=== PATIENT | female | born 1995 | race Caucasian/White ===

== ENCOUNTER 2018-07-07 07:02 | Emergency (ER) | payer BC, SELFPAY ==
[2018-07-07] MEDS ORDERED: ONDANSETRON 4 MG/2 ML VIAL ONE (07:32)
[2018-07-07] MEDS ORDERED: NA CHLORIDE 0.9% 1,000 ML ONE (07:33)
[2018-07-07] MEDS ORDERED: FAMOTIDINE 20 MG/2 ML VIAL IV ONE (07:33)
[2018-07-07 07:42] LABS: Absolute Lymphocytes (CBC) 2.1 K/uL (0.7-4.9); Absolute Monocytes 0.5 K/uL (0.1-1.3); Absolute Neutrophil 4.3 K/uL (1.8-8.0); Basophils % 0.9 % (0-1.3); Eosinophils % 4.2 % (0-4.4); Hematocrit 41.1 % (36.0-45.0); Lymphocytes % 29.5 % (15.3-44.8); MPV 8.8 fL (7.6-11.3); Monocytes % 6.9 % (3.3-12.3); RBC Red Blood Cell Count 4.95 M/uL (3.86-4.86)
[2018-07-07 07:52] LABS: Urine Blood NEGATIVE (NEG); Urine Glucose NEGATIVE (NEG); Urine Protein NEGATIVE (NEG); Urine Specific Gravity 1.025 (1.005-1.030)
[2018-07-07 07:59] LABS: ALT/SGPT 15 U/L (12-78); AST/SGOT 6 U/L (15-37); Albumin 3.2 g/dL (3.4-5.0); Alkaline Phosphatase 77 U/L (45-117); BUN Blood Urea Nitrogen 14 mg/dL (7-18); Bicarbonate 26 mmol/L (21-32); Bilirubin Direct < 0.1 mg/dL (0-0.2); Bilirubin Total 0.2 mg/dL (0.2-1.0); Glucose Level 100 mg/dL (74-106); Lipase 93 U/L (73-393); Potassium 3.8 mmol/L (3.5-5.1); Protein, Total 7.4 g/dL (6.4-8.2); Sodium Level 139 mmol/L (136-145)
--- NOTE | 2018-07-07 08:07 | ER ---
Nurse's Notes [facility] Name: Samantha Blum Age: 23 yrs Sex: Female : 1995 Arrival Date: 07/07/2018 Time: 07:05 Bed 20 Private MD: Diagnosis: Nausea and vomiting;Diarrhea, unspecified Presentation: 07/07 07:06 Presenting complaint: Patient states: n/v/d/lightheaded x 2 days. Daughter has the same sv symptoms. Transition of care: patient was not received from another setting of care. Onset of symptoms was July 05, 2018. Risk Assessment: Do you want to hurt yourself or someone else? Patient reports no desire to harm self or others. Initial Sepsis Screen: Does the patient meet any 2 criteria? No. Patient's initial sepsis screen is negative. Does the patient have a suspected source of infection? No. Patient's initial sepsis screen is negative. Care prior to arrival: None. 07:06 Method Of Arrival: Ambulatory sv 07:06 Acuity: KHRIS 3 sv Triage Assessment: 07:42 General: Appears in no apparent distress. uncomfortable, obese, well developed, sv Behavior is calm, cooperative, appropriate for age. Pain: Denies pain. Neuro: Level of Consciousness is awake, alert, obeys commands, Oriented to person, place, time, situation, Moves all extremities. Full function Gait is steady. Respiratory: Airway is patent Respiratory effort is even, unlabored, Respiratory pattern is regular, symmetrical. GI: Abdomen is obese, Reports diarrhea, nausea, vomiting. Derm: Skin is pale. Historical: - Allergies: 07:13 Zithromax; sv - PMHx: 07:13 HYPOGLYCEMIA; sv - PSHx: 07:13 None; sv - Immunization history:: Adult Immunizations up to date. - Social history:: Smoking status: Patient uses tobacco products, smokes .25 packs per day. - Ebola Screening: : No symptoms or risks identified at this time. Screenin:06 Abuse screen: Denies threats or abuse. Denies injuries from another. Nutritional sv screening: No deficits noted. Tuberculosis screening: No symptoms or risk factors identified. Fall Risk None identified. Assessment: 08:03 Reassessment: Patient appears in no apparent distress at this time. Patient and/or sv family updated on plan of care and expected duration. Pain level reassessed. Patient is alert, oriented x 3, equal unlabored respirations, skin warm/dry/pink. Patient states feeling better. Patient states symptoms have improved. GI: Patient currently denies nausea, vomiting. 08:30 Reassessment: Patient appears in no apparent distress at this time. Patient and/or sv family updated on plan of care and expected duration. Pain level reassessed. Patient is alert, oriented x 3, equal unlabored respirations, skin warm/dry/pink. Patient states feeling better. Patient states symptoms have improved. Vital Signs: 07:13 BP 106 / 41; Pulse 87; Resp 16; Temp 97.7; Pulse Ox 98% ; Weight 107.5 kg; Height 4 ft. sv 11 in. (149.86 cm); Pain 0/10; 07:13 Body Mass Index 47.87 (107.50 kg, 149.86 cm) sv ED Course: 07:05 Patient arrived in ED. as 07:06 William Zavala PA is PHCP. cp 07:06 Lang Springer MD is Attending Physician. cp 07:06 Patient has correct armband on for positive identification. Bed in low position. Call sv light in reach. Pulse ox on. NIBP on. Door closed. Head of bed elevated. 07:11 Trixie Mcneil, RN is Primary Nurse. sv 07:12 Triage completed. sv 07:14 Arm band placed on. sv 07:25 Initial lab(s) drawn, by me, sent to lab. Inserted saline lock: 20 gauge in right sv antecubital area, using aseptic technique. Blood collected. Flushed right antecubital with 5 ml normal saline. 08:30 No provider procedures requiring assistance completed. IV discontinued, intact, sv bleeding controlled, No redness/swelling at site. Pressure dressing applied. Administered Medications: 07:30 Drug: NS 0.9% 1000 ml Route: IV; Rate: 1 bolus; Site: right antecubital; sv 08:05 Follow up: Response: No adverse reaction; IV Status: Completed infusion; IV Intake: sv 1000ml 07:30 Drug: Zofran 4 mg Route: IVP; Site: right antecubital; sv 08:03 Follow up: Response: No adverse reaction; Marked relief of symptoms; Nausea is decreasedsv 07:32 Drug: Pepcid 20 mg Route: IVP; Site: right antecubital; sv 08:03 Follow up: Response: No adverse reaction; Marked relief of symptoms sv Intake: 08:05 IV: 1000ml; Total: 1000ml. sv Outcome: 08:05 Discharge ordered by . cp 08:30 Discharged to home ambulatory. sv 08:30 Condition: stable 08:30 Condition: improved 08:30 Discharge instructions given to patient, Instructed on discharge instructions, follow up and referral plans. medication usage, Demonstrated understanding of instructions, follow-up care, medications, Prescriptions given X 1. 08:31 Patient left the ED. sv Signatures: Trixie Mcneil, RN RN [place] Corey PA PA cp
--- NOTE | 2018-07-07 08:07 | EDPHYS ---
Physician Documentation [facility] Name: Samantha Blum Age: 23 yrs Sex: Female : 1995 Arrival Date: 07/07/2018 Time: 07:05 Bed 20 Private MD: ED Physician Lang Springer HPI: 07/07 07:30 This 23 yrs old Female presents to ER via Ambulatory with complaints of cp Vomiting. 07:30 The patient presents to the emergency department with nausea, that is moderate, cp vomiting, 4 episodes over last 24 hours, described as bilious, diarrhea, that is intermittent. Onset: The symptoms/episode began/occurred 2 day(s) ago. Possible causes: sick contacts, by family, daughter. Associated signs and symptoms: Pertinent negatives: fever, GI bleeding. Severity of symptoms: in the emergency department the symptoms are unchanged despite home interventions. Historical: - Allergies: 07:13 Zithromax; sv - PMHx: 07:13 HYPOGLYCEMIA; sv - PSHx: 07:13 None; sv - Immunization history:: Adult Immunizations up to date. - Social history:: Smoking status: Patient uses tobacco products, smokes .25 packs per day. - Ebola Screening: : No symptoms or risks identified at this time. ROS: 07:38 Eyes: Negative for injury, pain, redness, and discharge. cp 07:38 Constitutional: Negative for body aches, chills, fever. 07:38 ENT: Negative for drainage from ear(s), ear pain, sore throat, difficulty swallowing, difficulty handling secretions. 07:38 Cardiovascular: Negative for chest pain, palpitations. 07:38 Respiratory: Negative for cough, shortness of breath, wheezing. 07:38 Abdomen/GI: Positive for nausea, vomiting, and diarrhea, Negative for abdominal pain, constipation, black/tarry stool, rectal bleeding. 07:38 Back: Negative for pain at rest, pain with movement, radiated pain. 07:38 : Negative for urinary symptoms, vaginal bleeding. 07:38 Skin: Negative for cellulitis, rash. 07:38 Neuro: Negative for altered mental status, headache, weakness. 07:38 All other systems are negative. Exam: 07:39 Head/Face: Normocephalic, atraumatic. cp 07:39 Constitutional: The patient appears in no acute distress, alert, awake, non-toxic, well developed, well nourished. 07:39 Eyes: Periorbital structures: appear normal, Conjunctiva: normal, no exudate, no injection, Sclera: no appreciated abnormality, Lids and lashes: appear normal, bilaterally. 07:39 ENT: External ear(s): are unremarkable, Nose: is normal, Mouth: Lips: moist, Oral mucosa: moist, Posterior pharynx: Airway: no evidence of obstruction, patent. 07:39 Chest/axilla: Inspection: normal, Palpation: is normal, no crepitus, no tenderness. 07:39 Cardiovascular: Rate: normal, Rhythm: regular. 07:39 Respiratory: the patient does not display signs of respiratory distress, Respirations: normal, no use of accessory muscles, no retractions, no splinting, no tachypnea, labored breathing, is not present, Breath sounds: are clear throughout, no decreased breath sounds, no stridor, no wheezing. 07:39 Abdomen/GI: Inspection: abdomen appears normal, Bowel sounds: active, all quadrants, Palpation: abdomen is soft and non-tender, in all quadrants, rebound tenderness, is not appreciated, voluntary guarding, is not appreciated, involuntary guarding, is not appreciated. Vital Signs: 07:13 BP 106 / 41; Pulse 87; Resp 16; Temp 97.7; Pulse Ox 98% ; Weight 107.5 kg; Height 4 ft. sv 11 in. (149.86 cm); Pain 0/10; 07:13 Body Mass Index 47.87 (107.50 kg, 149.86 cm) sv MDM: 07:09 Patient medically screened. cp 07:41 Differential diagnosis: gastritis, pancreatitis, appendicitis, viral gastroenteritis, cp gastroenteritis, colitis. 08:04 Data reviewed: vital signs, nurses notes, lab test result(s). ED course: Patient cp reports nausea resolved. Will discharge to home for continued monitoring. 07/07 07:15 Order name: Basic Metabolic Panel; Complete Time: 07:59 cp 07/07 07:15 Order name: CBC with Diff; Complete Time: 07:49 cp 07/07 08:00 Interpretation: Normal except: RBC 4.95; MCV 82.9; MCH 26.5; MCHC 31.9. cp 07/07 07:15 Order name: Creatinine for Radiology; Complete Time: 07:59 cp 07/07 07:15 Order name: Hepatic Function; Complete Time: 07:59 cp 07/07 07:59 Interpretation: Normal except: AST 6; ALB 3.2; GLOB 4.2; A/G 0.8. cp 07/07 07:15 Order name: Lipase; Complete Time: 07:59 cp 07/07 07:32 Order name: Urine Dipstick--Ancillary (enter results); Complete Time: 07:59 eb 07/07 08:00 Interpretation: Normal except: UESTR 1+. cp 07/07 07:10 Order name: Urine Dipstick-Ancillary (obtain specimen); Complete Time: 07:14 cp 07/07 07:10 Order name: Urine Test (obtain specimen); Complete Time: 07:14 cp 07/07 07:15 Order name: IV Saline Lock; Complete Time: 07:42 cp 07/07 07:15 Order name: Labs collected and sent; Complete Time: 07:42 cp 07/07 07:32 Order name: Urine --Ancillary (enter results); Complete Time: 07:59 eb 07/07 08:00 Order name: PO challenge; Complete Time: 08:09 cp Administered Medications: 07:30 Drug: NS 0.9% 1000 ml Route: IV; Rate: 1 bolus; Site: right antecubital; sv 08:05 Follow up: Response: No adverse reaction; IV Status: Completed infusion; IV Intake: sv 1000ml 07:30 Drug: Zofran 4 mg Route: IVP; Site: right antecubital; sv 08:03 Follow up: Response: No adverse reaction; Marked relief of symptoms; Nausea is decreasedsv 07:32 Drug: Pepcid 20 mg Route: IVP; Site: right antecubital; sv 08:03 Follow up: Response: No adverse reaction; Marked relief of symptoms sv Disposition: 09:57 Co-signature as Attending Physician, Lang Springer MD. rn Disposition: 07/07/18 08:05 Discharged to Home. Impression: Nausea and vomiting, Diarrhea, unspecified. - Condition is Stable. - Discharge Instructions: Food Choices to Help Relieve Diarrhea, Adult, Dehydration, Adult, Diarrhea, Adult, Nausea and Vomiting, Adult. - Prescriptions for Zofran 4 mg Oral Tablet - take 1 tablet by ORAL route every 12 hours As needed; 20 tablet. - Work release form, Medication Reconciliation Form, Thank You Letter, Antibiotic Education, Prescription Opioid Use form. - Follow up: Private Physician; When: 1 - 2 days; Reason: Worsening of condition. - Problem is new. - Symptoms have improved. Signatures: Dispatcher [employer] Trixie Christian, AMARA RN Lang Briceno MD MD rn Page, Corey, PA PA cp Corrections: (The following items were deleted from the chart) 08:31 08:05 07/07/2018 08:05 Discharged to Home. Impression: Nausea and vomiting; Diarrhea, sv unspecified. Condition is Stable. Forms are Medication Reconciliation Form, Thank You Letter, Antibiotic Education, Prescription Opioid Use. Follow up: Private Physician; When: 1 - 2 days; Reason: Worsening of condition. Problem is new. Symptoms have improved. cp
[2018-07-07 08:39] VITALS: BP 106/41; TEMP 97.7; O2SAT 98
== END 2018-07-07 08:31 | disposition home or self-care (01) ==
LOC: ER 07:02
DX: R11.2 Nausea with vomiting, unspecified (principal); F17.210 Nicotine dependence, cigarettes, uncomplicated; R19.7 Diarrhea, unspecified
CPT/HCPCS: 36415; 80048; 80076; 81003; 81025; 83690; 85025; 96361; 96374; 96375; 99284; J2405; J7030

== ENCOUNTER 2019-06-13 05:52 | Emergency (ER) | payer SELFPAY ==
--- NOTE | 2019-06-13 06:19 | EDPHYS ---
Physician Documentation [facility] Name: Samantha Blum Age: 24 yrs Sex: Female : 1995 Arrival Date: 06/13/2019 Time: 05:56 Bed 14 Private MD: ED Physician José Butler HPI: 06/12 06:14 This 24 yrs old Female presents to ER via Unassigned with complaints of Rash. kb 06:13 The patient's rash thought to be caused by an unknown cause. The rash is located on the kb posterior aspect of right lateral abdomen, anterior aspect of right lateral abdomen, posterior aspect of left lateral abdomen, anterior aspect of left lateral abdomen, right hand and left hand. 06:14 The rash can be described as macular, papular. Onset: The symptoms/episode kb began/occurred last night. Associated signs and symptoms: Pertinent positives: itching, Pain. Severity of symptoms: At their worst the symptoms were mild moderate in the emergency department the symptoms are unchanged. Treatment given at home: Benadryl. The patient has not experienced similar symptoms in the past. The patient has not recently seen a physician. Pt reports she developed a rash last night. States it started on her hands and has spread to both sides of abd, her right leg and foot. Reports itching and pain. . 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 - Social history:: Smoking status: Patient reports the use of cigarette tobacco products. ROS: 06:15 Constitutional: Negative for fever, chills, and weight loss, Neck: Negative for injury, kb pain, and swelling, Cardiovascular: Negative for chest pain, palpitations, and edema, Respiratory: Negative for shortness of breath, cough, wheezing, and pleuritic chest pain, Abdomen/GI: Negative for abdominal pain, nausea, vomiting, diarrhea, and constipation, MS/Extremity: Negative for injury and deformity, Neuro: Negative for headache, weakness, numbness, tingling, and seizure. 06:15 Skin: Positive for rash. Exam: 06:15 Constitutional: This is a well developed, well nourished patient who is awake, alert, kb and in no acute distress. Head/Face: Normocephalic, atraumatic. Chest/axilla: Normal chest wall appearance and motion. Nontender with no deformity. No lesions are appreciated. Cardiovascular: Regular rate and rhythm with a normal S1 and S2. No gallops, murmurs, or rubs. Normal PMI, no JVD. No pulse deficits. Respiratory: Lungs have equal breath sounds bilaterally, clear to auscultation and percussion. No rales, rhonchi or wheezes noted. No increased work of breathing, no retractions or nasal flaring. Abdomen/GI: Soft, non-tender, with normal bowel sounds. No distension or tympany. No guarding or rebound. No evidence of tenderness throughout. MS/ Extremity: Pulses equal, no cyanosis. Neurovascular intact. Full, normal range of motion. Neuro: Awake and alert, GCS 15, oriented to person, place, time, and situation. Cranial nerves II-XII grossly intact. Motor strength 5/5 in all extremities. Sensory grossly intact. Cerebellar exam normal. Normal gait. 06:15 Skin: consistent with contact dermatitis, on the left hand and right hand and anterior aspect of left lateral abdomen and posterior aspect of left lateral abdomen and anterior aspect of right lateral abdomen and posterior aspect of right lateral abdomen. Vital Signs: 06:20 BP 98 / 77; Pulse 71; Resp 16; Temp 98.1(O); Pulse Ox 100% on R/A; Weight 105.23 kg lp1 (R); Height 4 ft. 11 in. (149.86 cm); 06:20 Body Mass Index 46.86 (105.23 kg, 149.86 cm) lp1 MDM: 06:09 Patient medically screened. kb 06:13 Data reviewed: vital signs, nurses notes. Data interpreted: Pulse oximetry: on room air kb is 100 %. Interpretation: normal. Counseling: I had a detailed discussion with the patient and/or guardian regarding: the historical points, exam findings, and any diagnostic results supporting the discharge/admit diagnosis, the need for outpatient follow up, a family practitioner, to return to the emergency department if symptoms worsen or persist or if there are any questions or concerns that arise at home. Administered Medications: 06:31 Drug: Pepcid 20 mg Route: PO; lp1 06:42 Follow up: Response: Medication administered at discharge. lp1 06:31 Drug: predniSONE 40 mg Route: PO; lp1 06:43 Follow up: Response: Medication administered at discharge. lp1 Disposition: 14:01 Co-signature as Attending Physician, José Butler MD I agree with the assessment and tw4 plan of care. Disposition: 06/13/19 06:17 Discharged to Home. Impression: Rash and other nonspecific skin eruption. - Condition is Stable. - Discharge Instructions: Rash, [id number]. - Prescriptions for Pepcid 20 mg Oral Tablet - take 1 tablet by ORAL route every 12 hours for 5 days; 10 tablet. Prednisone 20 mg Oral Tablet - take 1 tablet by ORAL route once daily for 5 days; 5 tablet. - Medication Reconciliation Form, Thank You Letter, Antibiotic Education, Prescription Opioid Use, Work release form form. - Follow up: Private Physician; When: 2 - 3 days; Reason: Recheck today's complaints, Continuance of care, Re-evaluation by your physician. Follow up: Emergency Department; When: As needed; Reason: Worsening of condition. Signatures: Veronica Wagner, BRANT-C BRANT-Tonie Catherine RN RN lp1 José Butler MD MD tw4 Corrections: (The following items were deleted from the chart) 06:42 06:17 06/13/2019 06:17 Discharged to Home. Impression: Rash and other nonspecific skin lp1 eruption. Condition is Stable. Forms are Medication Reconciliation Form, Thank You Letter, Antibiotic Education, Prescription Opioid Use. Follow up: Private Physician; When: 2 - 3 days; Reason: Recheck today's complaints, Continuance of care, Re-evaluation by your physician. Follow up: Emergency Department; When: As needed; Reason: Worsening of condition. kb
[2019-06-13] MEDS ORDERED: FAMOTIDINE 20 MG TAB ONE (06:34)
[2019-06-13] MEDS ORDERED: predniSONE 20 MG TAB ONE (06:34)
--- NOTE | 2019-06-13 06:43 | ER ---
Nurse's Notes [facility] Name: Samantha Blum Age: 24 yrs Sex: Female : 1995 Arrival Date: 06/13/2019 Time: 05:56 Bed 14 Private MD: Diagnosis: Rash and other nonspecific skin eruption Presentation: 06/12 06:20 Chief complaint: Patient states: Rash to hands, sides, and legs that began last night; lp1 States temp of 100.3 at home, took Tylenol at 1400 yesterday. Coronavirus screen: The patient has NOT traveled to a country currently being monitored by the [facility] within the last 14 days. The patient has NOT had contact with any known and/or suspected case of coronavirus. Ebola Screen: No symptoms or risks identified at this time. Initial Sepsis Screen: Does the patient meet any 2 criteria? No. Patient's initial sepsis screen is negative. Does the patient have a suspected source of infection? No. Patient's initial sepsis screen is negative. Risk Assessment: Do you want to hurt yourself or someone else? Patient reports no desire to harm self or others. Onset of symptoms was June 12, 2019. 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 - Social history:: Smoking status: Patient reports the use of cigarette tobacco products. Screenin:24 Abuse screen: Denies threats or abuse. Denies injuries from another. Nutritional lp1 screening: No deficits noted. Tuberculosis screening: No symptoms or risk factors identified. Fall Risk None identified. Assessment: 06:41 General: Appears in no apparent distress. Behavior is calm. Pain: Denies pain. Neuro: lp1 No deficits noted. Cardiovascular: No deficits noted. Respiratory: No deficits noted. GI: No deficits noted. : No deficits noted. EENT: No deficits noted. Derm: Skin is intact, is healthy with good turgor, Skin is dry, Skin is normal, Rash noted that is macular, itchy. Musculoskeletal: No deficits noted. Vital Signs: 06:20 BP 98 / 77; Pulse 71; Resp 16; Temp 98.1(O); Pulse Ox 100% on R/A; Weight 105.23 kg lp1 (R); Height 4 ft. 11 in. (149.86 cm); 06:20 Body Mass Index 46.86 (105.23 kg, 149.86 cm) lp1 ED Course: 05:56 Patient arrived in ED. cl3 06:09 Veronica Wagner FNP-C [facility]. kb 06:09 José Butler MD is Attending Physician. kb 06:19 Tonie Jarvis, RN is Primary Nurse. lp1 06:20 Arm band placed on. lp1 06:24 Triage completed. lp1 06:25 No provider procedures requiring assistance completed. Patient did not have IV access lp1 during this emergency room visit. 06:27 Patient has correct armband on for positive identification. lp1 Administered Medications: 06:31 Drug: Pepcid 20 mg Route: PO; lp1 06:42 Follow up: Response: Medication administered at discharge. lp1 06:31 Drug: predniSONE 40 mg Route: PO; lp1 06:43 Follow up: Response: Medication administered at discharge. lp1 Outcome: 06:17 Discharge ordered by MD. kb 06:42 Discharged to home ambulatory. lp1 06:42 Condition: good 06:42 Discharge instructions given to patient, Instructed on discharge instructions, follow up and referral plans. medication usage, Demonstrated understanding of instructions, follow-up care, medications, Prescriptions given X 2. 06:42 Patient left the ED. lp1 Signatures: Veronica Wagner FNP-C PARKING OFFICER-Tonie Catherine, RN RN lp1 Ольга Julian cl3 Corrections: (The following items were deleted from the chart) 06:24 06:20 Pulse 71bpm; Resp 100bpm; Pulse Ox 100% RA; Temp 98.1F Oral; 105.23 kg Reported; lp1 Height 4 ft. 11 in.; BMI: 46.8; lp1 06:24 06:20 BP 98 / 77; Pulse 71bpm; Resp 100bpm; Pulse Ox 100% RA; Temp 98.1F Oral; 105.23 lp1 kg Reported; Height 4 ft. 11 in.; BMI: 46.8; lp1
[2019-06-13 06:47] VITALS: BP 98/77; TEMP 98.1; O2SAT 100
== END 2019-06-13 06:42 | disposition home or self-care (01) ==
LOC: ER 05:52
DX: R21 Rash and other nonspecific skin eruption (principal); Z88.3 Allergy status to other anti-infective agents; F17.210 Nicotine dependence, cigarettes, uncomplicated
CPT/HCPCS: 99283; J7512

== ENCOUNTER 2019-08-19 08:01 | Emergency (ER) | payer SELFPAY ==
[2019-08-19] MEDS ORDERED: IBUPROFEN 400 MG TAB ONE (08:37)
[2019-08-19 08:57] LABS: Urine Blood TRACE (NEG); Urine Glucose NEGATIVE (NEG); Urine Protein NEGATIVE (NEG); Urine Specific Gravity >1.030 (1.005-1.030); Urine pH 5.5 (5.0-7.0)
--- NOTE | 2019-08-19 10:05 | ER ---
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 Coronavirus screen: Proceed with normal triage. Ebola Screen: No symptoms or risks identified at this time. Initial Sepsis Screen: Does the patient meet any 2 criteria? No. Patient's initial sepsis screen is negative. Does the patient have a suspected source of infection? No. Patient's initial sepsis screen is negative. Risk Assessment: Do you want to hurt yourself or someone else? Patient reports no desire to harm self or others. Onset of symptoms was August 19, 2019. 08:10 Method Of Arrival: Ambulatory 08:10 Acuity: KHRIS 4 hb Triage Assessment: 08:11 General: Appears in no apparent distress. uncomfortable, well groomed, well developed, sv Behavior is calm, cooperative, appropriate for age. Pain: Complains of pain in dorsal aspect of right wrist. Neuro: Level of Consciousness is awake, alert, obeys commands, Oriented to person, place, time, situation, Moves all extremities. Full function Gait is steady. Respiratory: Respiratory effort is even, unlabored, Respiratory pattern is regular, symmetrical. Derm: Skin is pink, warm \T\ dry. 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 - Social history:: Smoking status: Patient reports the use of cigarette tobacco products, smokes one-half pack cigarettes per day. Screenin:12 Abuse screen: Denies threats or abuse. Denies injuries from another. Nutritional sv screening: No deficits noted. Tuberculosis screening: No symptoms or risk factors identified. Fall Risk None identified. Assessment: 08:32 Reassessment: Patient appears in no apparent distress at this time. No changes from sv previously documented assessment. Patient and/or family updated on plan of care and expected duration. Pain level reassessed. Patient is alert, oriented x 3, equal unlabored respirations, skin warm/dry/pink. 09:16 Reassessment: Patient appears in no apparent distress at this time. Patient and/or hb family updated on plan of care and expected duration. Pain level reassessed. Patient is alert/active/playful, equal unlabored respirations, skin warm/dry/pink. 10:15 Reassessment: Patient appears in no apparent distress at this time. Patient and/or hb family updated on plan of care and expected duration. Pain level reassessed. Patient is alert, oriented x 3, equal unlabored respirations, skin warm/dry/pink. Vital Signs: 08:10 BP 130 / 80; Pulse 85; Resp 16; Temp 98.2(TE); Pulse Ox 100% ; Weight 107.5 kg; Height hb 4 ft. 11 in. (149.86 cm); Pain 5/10; 08:10 Body Mass Index 47.87 (107.50 kg, 149.86 cm) ED Course: 08:04 Patient arrived in ED. ag5 08:06 Kavon Fan MD is Attending Physician. 7 08:11 Trixie Mcneil RN is Primary Nurse. sv 08:11 ED physician to see patient. sv 08:12 Arm band placed on. sv 08:12 Patient has correct armband on for positive identification. Bed in low position. Call sv light in reach. Pulse ox on. NIBP on. Door closed. Head of bed elevated. 08:13 Triage completed. hb 08:33 Hand Right 3 View XRAY Sent. sv 08:33 Wrist Right 3 View XRAY Sent. sv 08:39 Wrist Right 3 View XRAY In Process Unspecified. EDMS 08:39 Hand Right 3 View XRAY In Process Unspecified. EDMS 08:45 Awaiting radiology results. sv 10:03 Morteza Walden MD is Referral Physician. 7 10:15 Orthoglass splint: Volar splint applied on left arm Radial pulse present and within jb1 normal limits before and after application of splint. Capillary refill was one second before and after application of splint. Patient tolerated well. 10:55 No provider procedures requiring assistance completed. Patient did not have IV access hb during this emergency room visit. Administered Medications: 08:32 Drug: Motrin 800 mg Route: PO; sv 09:00 Follow up: Response: No adverse reaction sv Outcome: 10:04 Discharge ordered by . erika 10:55 Discharged to home ambulatory. hb 10:55 Condition: stable 10:55 Discharge instructions given to patient, Instructed on discharge instructions, follow up and referral plans. medication usage, Demonstrated understanding of instructions, follow-up care, medications, Prescriptions given X 1. 10:55 Patient left the ED. 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
--- NOTE | 2019-08-19 10:06 | EDPHYS ---
Physician Documentation [facility] Name: Samantha Blum Age: 24 yrs Sex: Female : 1995 Arrival Date: 08/19/2019 Time: 08:04 Bed 15 Private MD: ED Physician Kavon Fan HPI: 08/18 08:15 This 24 yrs old Female presents to ER via Ambulatory with complaints of Wrist mh7 Pain. 08:15 This 24 yrs old Female presents to ER via Ambulatory with complaints of Wrist mh7 Pain. 08:15 The patient or guardian reports injury. The complaints affect the right wrist mh7 diffusely. Context: The problem was sustained at work, resulted from a direct blow, by a heavy object, lifting or pulling, a patient. Onset: The symptoms/episode began/occurred just prior to arrival, today. Modifying factors: The symptoms are alleviated by nothing, the symptoms are aggravated by movement. Associated signs and symptoms: Pertinent negatives: cyanosis distally, decreased sensation distally, fever, nausea, numbness distally, tingling distally, vomiting. Compartment Syndrome negative for numbness, tingling. Patient states that she was lifting a patient at work in a [employer] when right wrist got twisted and possibly hit something. She denies any numbness/tingling, or weakness. She took Tylenol prior to coming to the ED.. 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 - Social history:: Smoking status: Patient reports the use of cigarette tobacco products, smokes one-half pack cigarettes per day. ROS: 08:15 Constitutional: Negative for fever, chills, and weight loss, Eyes: Negative for injury, mh7 pain, redness, and discharge, ENT: Negative for injury, pain, and discharge, Neck: Negative for injury, pain, and swelling, Cardiovascular: Negative for chest pain, palpitations, and edema, Respiratory: Negative for shortness of breath, cough, wheezing, and pleuritic chest pain, Abdomen/GI: Negative for abdominal pain, nausea, vomiting, diarrhea, and constipation, Back: Negative for injury and pain, : Negative for injury, bleeding, discharge, and swelling, Skin: Negative for injury, rash, and discoloration, Neuro: Negative for headache, weakness, numbness, tingling, and seizure, Psych: Negative for depression, anxiety, suicide ideation, homicidal ideation, and hallucinations, Allergy/Immunology: Negative for hives, rash, and allergies, Endocrine: Negative for neck swelling, polydipsia, polyuria, polyphagia, and marked weight changes, Hematologic/Lymphatic: Negative for swollen nodes, abnormal bleeding, and unusual bruising. Exam: 08:15 Constitutional: This is a well developed, well nourished patient who is awake, alert, mh7 and in no acute distress. Head/Face: Normocephalic, atraumatic. Eyes: Pupils equal round and reactive to light, extra-ocular motions intact. Lids and lashes normal. Conjunctiva and sclera are non-icteric and not injected. Cornea within normal limits. Periorbital areas with no swelling, redness, or edema. Neck: Trachea midline, no thyromegaly or masses palpated, and no cervical lymphadenopathy. Supple, full range of motion without nuchal rigidity, or vertebral point tenderness. No Meningismus. Chest/axilla: Normal chest wall appearance and motion. Nontender with no deformity. No lesions are appreciated. Cardiovascular: Regular rate and rhythm with a normal S1 and S2. No gallops, murmurs, or rubs. Normal PMI, no JVD. No pulse deficits. Respiratory: Lungs have equal breath sounds bilaterally, clear to auscultation and percussion. No rales, rhonchi or wheezes noted. No increased work of breathing, no retractions or nasal flaring. Abdomen/GI: Soft, non-tender, with normal bowel sounds. No distension or tympany. No guarding or rebound. No evidence of tenderness throughout. Back: No spinal tenderness. No costovertebral tenderness. Full range of motion. Skin: Warm, dry with normal turgor. Normal color with no rashes, no lesions, and no evidence of cellulitis. 08:15 Neuro: Awake and alert, GCS 15, oriented to person, place, time, and situation. Cranial nerves II-XII grossly intact. Motor strength 5/5 in all extremities. Sensory grossly intact. Cerebellar exam normal. Normal gait. Psych: Awake, alert, with orientation to person, place and time. Behavior, mood, and affect are within normal limits. 08:15 Musculoskeletal/extremity: Extremities: noted in the right wrist: decreased ROM, pain, tenderness, noted in the dorsal aspect of right hand: pain, tenderness, ROM: limited active range of motion due to pain, in the right wrist, limited passive range of motion due to pain, in the right wrist, Circulation is intact in all extremities. Pulses: are normal with no appreciated deficits, Perfusion: the patient is normally perfused throughout, Perfusion: the extremity is normally perfused throughout, Sensation intact. Compartment Syndrome exam of affected extremity: is normal. no numbness, no tingling, no sensation deficit, no palor, no weak pulses, Joints: the right wrist displays painful range of motion, tenderness, Weight bearing: able to fully bear weight, without difficulty, Tendon exam: specific tendon testing normal through active and passive range of motion Vital Signs: 08:10 BP 130 / 80; Pulse 85; Resp 16; Temp 98.2(TE); Pulse Ox 100% ; Weight 107.5 kg; Height hb 4 ft. 11 in. (149.86 cm); Pain 5/10; 08:10 Body Mass Index 47.87 (107.50 kg, 149.86 cm) hb Procedures: 10:28 Splinting: Splint applied to right wrist using Orthoglass splint, applied by [facility] Examined by me, post splint application: neurovascular intact, 2+ distal pulses palpable, brisk capillary refill noted, Patient tolerated well. MDM: 08:13 Patient medically screened. [facility] 09:58 Differential diagnosis: dislocation, closed fracture, contusion, tendonitis, sprain, 7 strain. Data reviewed: vital signs, nurses notes, radiologic studies, plain films. Data interpreted: Pulse oximetry: on room air is 98 %. Interpretation: normal. Counseling: I had a detailed discussion with the patient and/or guardian regarding: the historical points, exam findings, and any diagnostic results supporting the discharge/admit diagnosis, lab results, radiology results. 10:02 Test interpretation: by ED physician or midlevel provider: plain radiologic studies. [facility] 10:28 ED course: Feels better, NAD, VSS, NVI, no focal neurological deficits. Discussed all [facility] test results and findings with the patient and answered all of her questions. She will follow up with orthopedics but was told to return to the ED if worsening of symptoms or other concerns.. 08/18 08:23 Order name: Urine Dipstick--Ancillary (enter results); Complete Time: 09:03 08/18 08:23 Order name: Urine --Ancillary (enter results); Complete Time: 09:03 08/18 08:15 Order name: Urine Test (obtain specimen); Complete Time: 08:23 [facility] 08/18 08:15 Order name: Wrist Right 3 View XRAY [facility] 08/18 08:15 Order name: Hand Right 3 View XRAY [facility] 08/18 10:02 Order name: Splint; Complete Time: 10:17 7 Administered Medications: 08:32 Drug: Motrin 800 mg Route: PO; sv 09:00 Follow up: Response: No adverse reaction sv Disposition: 08/19/19 10:04 Discharged to Home. Impression: Other and unspecified sprain of wrist. - Condition is Stable. - Discharge Instructions: Wrist Sprain, Form - Excuse from Work, School, or Physical Activity. - Prescriptions for Ibuprofen 800 mg Oral Tablet - take 1 tablet by ORAL route every 8 hours As needed take with food; 15 tablet. - Work release form, Medication Reconciliation Form, Thank You Letter, Antibiotic Education, Prescription Opioid Use form. - Follow up: Morteza Walden MD; When: 2 - 3 days; Reason: Worsening of condition, Re-evaluation by your physician. - Problem is new. - Symptoms have improved. Signatures: Dis[facility] Trixie Mcneil RN RN Blanquita Mauricio RN RN Kavon Fan MD MD mh7 Corrections: (The following items were deleted from the chart) 10:55 10:04 08/19/2019 10:04 Discharged to Home. Impression: Other and unspecified sprain of hb wrist. Condition is Stable. Forms are Medication Reconciliation Form, Thank You Letter, Antibiotic Education, Prescription Opioid Use. Follow up: Dr. Morteza Walden; When: 2 - 3 days; Reason: Worsening of condition, Re-evaluation by your physician. Problem is new. Symptoms have improved. [facility]
[2019-08-19 11:17] VITALS: BP 130/80; TEMP 98.2; O2SAT 100
--- NOTE | 2019-08-19 11:39 | RAD REPORT ---
EXAM DESCRIPTION: RAD - Hand Right 3 View - 08/19/2019 8:38 am CLINICAL HISTORY: injury Trauma, pain COMPARISON: None FINDINGS: Right wrist and right hand- multiple projections are submitted No acute fracture or dislocation seen.
--- NOTE | 2019-08-21 08:43 | RAD REPORT ---
EXAM DESCRIPTION: RAD - Wrist Right 3 View - 08/19/2019 8:38 am CLINICAL HISTORY: Injury Trauma, pain COMPARISON: None FINDINGS: Right wrist and right hand- multiple projections are submitted No acute fracture or dislocation seen.
== END 2019-08-19 10:55 | disposition home or self-care (01) ==
LOC: ER 08:01
DX: S63.591A Other specified sprain of right wrist, initial encounter (principal); X50.0XXA Overexertion from strenuous movement or load, initial encounter; Y93.F2 Activity, caregiving, lifting; Y92.129 Unspecified place in nursing home as the place of occurrence of the external cause; Y99.8 Other external cause status; F17.210 Nicotine dependence, cigarettes, uncomplicated; Z88.1 Allergy status to other antibiotic agents
CPT/HCPCS: 81003; 81025; 99284

== ENCOUNTER 2019-09-25 08:57 | Emergency (ER) | payer SELFPAY ==
[2019-09-25 10:30] LABS: Absolute Lymphocytes (CBC) 1.5 K/uL (0.7-4.9); Basophils % 0.7 % (0-1.3); Hematocrit 39.4 % (36.0-45.0); MPV 8.9 fL (7.6-11.3); RBC Red Blood Cell Count 4.67 M/uL (3.86-4.86)
[2019-09-25] MEDS ORDERED: ONDANSETRON 4 MG/2 ML VIAL ONE (10:34)
[2019-09-25] MEDS ORDERED: NA CHLORIDE 0.9% 1,000 ML ONE (10:34)
[2019-09-25 10:46] LABS: ALT/SGPT 20 U/L (12-78); AST/SGOT 10 U/L (15-37); Albumin 3.4 g/dL (3.4-5.0); Alkaline Phosphatase 80 U/L (45-117); BUN Blood Urea Nitrogen 11 mg/dL (7-18); Bicarbonate 25 mmol/L (21-32); Bilirubin Direct < 0.1 mg/dL (0-0.2); Bilirubin Total 0.1 mg/dL (0.2-1.0); Glucose Level 109 mg/dL (74-106); Lipase 64 U/L (73-393); Potassium 3.6 mmol/L (3.5-5.1); Protein, Total 7.2 g/dL (6.4-8.2); Sodium Level 140 mmol/L (136-145)
[2019-09-25 11:00] LABS: Urine Blood NEGATIVE (NEG); Urine Glucose NEGATIVE (NEG); Urine Protein NEGATIVE (NEG); Urine Specific Gravity 1.025 (1.005-1.030)
--- NOTE | 2019-09-25 11:03 | ER ---
Nurse's Notes [facility] [place] [place] Name: Samantha Blum Age: 24 yrs Sex: Female : 1995 Arrival Date: 09/25/2019 Time: 09:05 Bed 6 Private MD: Diagnosis: Vomiting;Abdominal tenderness;Dysmenorrhea, unspecified Presentation: 09/24 09:28 Chief complaint: Patient states: "I STARTED MY PERIOD TWO DAYS AGO AND SINCE THEN I'VE bp BEEN NAUSEOUS AND VOMITING AND PASSING OUT". Coronavirus screen: Proceed with normal triage. Ebola Screen: No symptoms or risks identified at this time. Initial Sepsis Screen: Does the patient meet any 2 criteria? No. Patient's initial sepsis screen is negative. Does the patient have a suspected source of infection? No. Patient's initial sepsis screen is negative. Risk Assessment: Do you want to hurt yourself or someone else? Patient reports no desire to harm self or others. Onset of symptoms is unknown. 09:28 Method Of Arrival: Ambulatory bp 09:28 Acuity: KHRIS 3 bp Triage Assessment: 09:30 General: Appears distressed, uncomfortable, obese, Behavior is cooperative, appropriate bp for age, agitated, anxious, crying. Pain: Complains of pain in pelvis. EENT: No deficits noted. Neuro: No deficits noted. Cardiovascular: No deficits noted. Respiratory: No deficits noted. GI: Reports nausea, vomiting. 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 Derm: No deficits noted. Musculoskeletal: No deficits noted. 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 - Social history:: Smoking status: unknown. - Family history:: not pertinent. Screenin:30 Abuse screen: Denies threats or abuse. Denies injuries from another. Nutritional bp screening: No deficits noted. Tuberculosis screening: No symptoms or risk factors identified. Fall Risk None identified. Assessment: 09:30 General: SEE TRIAGE NOTE. GI: Abdomen is non-distended, obese. bp 10:46 Reassessment: IVF INFUSING. RESULTS PENDING. bp 11:27 Reassessment: PT D/C HOME AMBULATORY, DX WITH DYSMENORRHEA. bp Vital Signs: 09:28 BP 134 / 70; Pulse 82; Resp 20; Temp 98.7; Pulse Ox 98% ; Weight 100.7 kg; Height 4 ft. bp 11 in. (149.86 cm); 10:46 BP 137 / 107; Pulse 66; Resp 16; Pulse Ox 98% ; bp 11:28 BP 95 / 51; Pulse 70; Resp 16; Pulse Ox 99% ; bp 09:28 Body Mass Index 44.84 (100.70 kg, 149.86 cm) bp ED Course: 09:05 Patient arrived in ED. mr 09:14 William Guadarrama MD is Attending Physician. ana 09:28 Duane Moore, RN is Primary Nurse. bp 09:29 Triage completed. bp 09:30 Arm band placed on. bp 09:30 Patient has correct armband on for positive identification. Bed in low position. Call bp light in reach. Side rails up X2. 10:31 Initial lab(s) drawn, by me, sent to lab. Inserted saline lock: 20 gauge in right iw antecubital area, using aseptic technique. Blood collected. 11:27 No provider procedures requiring assistance completed. IV discontinued, intact, bp bleeding controlled, No redness/swelling at site. Pressure dressing applied. Administered Medications: 10:41 Drug: NS 0.9% 1000 ml Route: IV; Rate: 1 bolus; Site: right antecubital; iw 11:20 Follow up: IV Status: Completed infusion iw 10:41 Drug: Zofran (Ondansetron) 4 mg Route: IVP; Site: right antecubital; iw 11:20 Follow up: Response: No adverse reaction; Marked relief of symptoms iw 11:19 Drug: TORadol 30 mg Route: IVP; Site: right antecubital; iw 11:20 Follow up: Response: No adverse reaction iw Outcome: 11:02 Discharge ordered by . ana 11:28 Discharged to home ambulatory. bp 11:28 Condition: stable 11:28 Discharge instructions given to patient, Instructed on discharge instructions, follow up and referral plans. medication usage, Demonstrated understanding of instructions, follow-up care, medications, Prescriptions given X 2. 11:29 Patient left the ED. bp Signatures: William Guadarrama MD MD cha Rivera, Mary mr Williams, Irene, RN RN iw Duane Moore, RN RN bp
--- NOTE | 2019-09-25 11:03 | EDPHYS ---
Physician Documentation [facility] Name: Samantha Blum Age: 24 yrs Sex: Female : 1995 Arrival Date: 09/25/2019 Time: 09:05 Bed 6 Private MD: ED Physician William Guadarrama HPI: 09/24 10:03 This 24 yrs old Female presents to ER via Ambulatory with complaints of ana Vomiting, Dizziness. 10:03 The patient presents to the emergency department with nausea, vomiting, abdominal pain, ana of the suprapubic area, right lower quadrant and left lower quadrant. Onset: The symptoms/episode began/occurred 2 day(s) ago. Possible causes: unknown. The symptoms are aggravated by nothing. The symptoms are alleviated by nothing. Associated signs and symptoms: Pertinent positives: abdominal pain, nausea, vomiting. Severity of symptoms: At their worst the symptoms were moderate in the emergency department the symptoms are unchanged. The patient has not experienced similar symptoms in the past. GRIP: 09:30 LMP 09/25/2019 bp Historical: - Allergies: 09:30 Zithromax; bp - Home Meds: :30 None [Active]; bp - PMHx: 09:30 HYPOGLYCEMIA; bp - Immunization history:: Adult Immunizations unknown. - Social history:: Smoking status: unknown. - Family history:: not pertinent. ROS: 10:03 Constitutional: Negative for fever, chills, and weight loss, Eyes: Negative for injury, ana pain, redness, and discharge, ENT: Negative for injury, pain, and discharge, Neck: Negative for injury, pain, and swelling, Cardiovascular: Negative for chest pain, palpitations, and edema, Respiratory: Negative for shortness of breath, cough, wheezing, and pleuritic chest pain, Back: Negative for injury and pain, : Negative for injury, bleeding, discharge, and swelling, MS/Extremity: Negative for injury and deformity, Skin: Negative for injury, rash, and discoloration, Neuro: Negative for headache, weakness, numbness, tingling, and seizure, Psych: Negative for depression, anxiety, suicide ideation, homicidal ideation, and hallucinations, Allergy/Immunology: Negative for hives, rash, and allergies, Endocrine: Negative for neck swelling, polydipsia, polyuria, polyphagia, and marked weight changes, Hematologic/Lymphatic: Negative for swollen nodes, abnormal bleeding, and unusual bruising. 10:03 Abdomen/GI: Positive for abdominal pain, nausea and vomiting, of the suprapubic area, right lower quadrant and left lower quadrant. Exam: 10:03 Constitutional: This is a well developed, well nourished patient who is awake, alert, ana and in no acute distress. Head/Face: Normocephalic, atraumatic. Eyes: Pupils equal round and reactive to light, extra-ocular motions intact. Lids and lashes normal. Conjunctiva and sclera are non-icteric and not injected. Cornea within normal limits. Periorbital areas with no swelling, redness, or edema. ENT: Nares patent. No nasal discharge, no septal abnormalities noted. Tympanic membranes are normal and external auditory canals are clear. Oropharynx with no redness, swelling, or masses, exudates, or evidence of obstruction, uvula midline. Mucous membranes moist. Neck: Trachea midline, no thyromegaly or masses palpated, and no cervical lymphadenopathy. Supple, full range of motion without nuchal rigidity, or vertebral point tenderness. No Meningismus. Chest/axilla: Normal chest wall appearance and motion. Nontender with no deformity. No lesions are appreciated. Cardiovascular: Regular rate and rhythm with a normal S1 and S2. No gallops, murmurs, or rubs. Normal PMI, no JVD. No pulse deficits. Respiratory: Lungs have equal breath sounds bilaterally, clear to auscultation and percussion. No rales, rhonchi or wheezes noted. No increased work of breathing, no retractions or nasal flaring. Back: No spinal tenderness. No costovertebral tenderness. Full range of motion. Skin: Warm, dry with normal turgor. Normal color with no rashes, no lesions, and no evidence of cellulitis. MS/ Extremity: Pulses equal, no cyanosis. Neurovascular intact. Full, normal range of motion. Neuro: Awake and alert, GCS 15, oriented to person, place, time, and situation. Cranial nerves II-XII grossly intact. Motor strength 5/5 in all extremities. Sensory grossly intact. Cerebellar exam normal. Normal gait. Psych: Awake, alert, with orientation to person, place and time. Behavior, mood, and affect are within normal limits. 10:03 Abdomen/GI: Inspection: abdomen appears normal, Bowel sounds: normal, Palpation: mild abdominal tenderness, in the suprapubic area, Liver: no appreciated palpable abnormalities, Hernia: not appreciated. Vital Signs: 09:28 BP 134 / 70; Pulse 82; Resp 20; Temp 98.7; Pulse Ox 98% ; Weight 100.7 kg; Height 4 ft. bp 11 in. (149.86 cm); 10:46 BP 137 / 107; Pulse 66; Resp 16; Pulse Ox 98% ; bp 11:28 BP 95 / 51; Pulse 70; Resp 16; Pulse Ox 99% ; bp 09:28 Body Mass Index 44.84 (100.70 kg, 149.86 cm) bp MDM: 09:32 Patient medically screened. ana 10:05 Differential diagnosis: Nonspecific abd pain. Data reviewed: vital signs, nurses notes, [facility] lab test result(s). 10:10 Data interpreted: gambling monitor: rate is 82 beats/min, rhythm is normal sinus rhythm, [facility] Pulse oximetry: on room air is 98 %. Counseling: I had a detailed discussion with the patient and/or guardian regarding: the historical points, exam findings, and any diagnostic results supporting the discharge/admit diagnosis, lab results. Medication response: Zofran markedly relieved the patient's nausea. 11:01 ED course: pt improved, will follow up , return to er if worsens. ana 11:08 Medication response: Toradol markedly relieved the patient's pain. [facility] 09/24 10:03 Order name: Basic Metabolic Panel; Complete Time: 11:00 09/24 10:03 Order name: CBC with Diff; Complete Time: 11:09/24 10:03 Order name: Hepatic Function; Complete Time: 11:09/24 10:03 Order name: Lipase; Complete Time: 11:00 [facility] 09/24 10:49 Order name: Urine Dipstick--Ancillary (enter results) 09/24 10:49 Order name: Urine --Ancillary (enter results) 09/24 10:03 Order name: IV Saline Lock; Complete Time: 10:31 09/24 10:03 Order name: Labs collected and sent; Complete Time: 10:09/24 10:03 Order name: Urine Dipstick-Ancillary (obtain specimen); Complete Time: 10:48 [facility] 09/24 10:03 Order name: Urine Test (obtain specimen); Complete Time: 10:48 ana Administered Medications: 10:41 Drug: NS 0.9% 1000 ml Route: IV; Rate: 1 bolus; Site: right antecubital; iw 11:20 Follow up: IV Status: Completed infusion iw 10:41 Drug: Zofran (Ondansetron) 4 mg Route: IVP; Site: right antecubital; iw 11:20 Follow up: Response: No adverse reaction; Marked relief of symptoms iw 11:19 Drug: TORadol 30 mg Route: IVP; Site: right antecubital; iw 11:20 Follow up: Response: No adverse reaction iw Disposition: 09/25/19 11:02 Discharged to Home. Impression: Vomiting, Abdominal tenderness, Dysmenorrhea, unspecified. - Condition is Stable. - Discharge Instructions: Abdominal Pain, Adult, Dysmenorrhea, Abdominal Pain, Adult, [id number], Pelvic Rest, Dysmenorrhea, [id number]. - Prescriptions for Zofran 4 mg Oral Tablet - take 1 tablet by ORAL route every 12 hours As needed; 20 tablet. Motrin IB 200 mg Oral Tablet - take 2 tablet by ORAL route every 6 hours As needed as needed with food; 30 tablet. - Medication Reconciliation Form, Thank You Letter, Antibiotic Education, Prescription Opioid Use, Work release form form. - Follow up: Private Physician; When: 2 - 3 days; Reason: Recheck today's complaints, Continuance of care, Re-evaluation by your physician. - Problem is new. - Symptoms have improved. Signatures: Dispatcher [employer] EDFL William Guadarrama MD MD cha Williams, Irene, AMARA MALONEY iw Duane Moore RN RN bp Corrections: (The following items were deleted from the chart) 11: 11:02 09/25/2019 11:02 Discharged to Home. Impression: Vomiting; Abdominal tenderness. [facility] Condition is Stable. Forms are Medication Reconciliation Form, Thank You Letter, Antibiotic Education, Prescription Opioid Use. Follow up: Private Physician; When: 2 - 3 days; Reason: Recheck today's complaints, Continuance of care, Re-evaluation by your physician. Problem is new. Symptoms have improved. [facility] : 11:03 09/25/2019 11:02 Discharged to Home. Impression: Vomiting; Abdominal tenderness; bp Dysmenorrhea, unspecified. Condition is Stable. Discharge Instructions: Abdominal Pain, Adult, Abdominal Pain, Adult, [id number]. Forms are Medication Reconciliation Form, Thank You Letter, Antibiotic Education, Prescription Opioid Use. Follow up: Private Physician; When: 2 - 3 days; Reason: Recheck today's complaints, Continuance of care, Re-evaluation by your physician. Problem is new. Symptoms have improved. ana
[2019-09-25] MEDS ORDERED: KETOROLAC 30 MG/ML INJ ONE (11:25)
[2019-09-25 11:43] VITALS: TEMP 98.7
[2019-09-25 11:45] VITALS: BP 95/51; O2SAT 99
== END 2019-09-25 11:29 | disposition home or self-care (01) ==
LOC: ER 08:57
DX: R10.819 Abdominal tenderness, unspecified site (principal); N94.6 Dysmenorrhea, unspecified; Z88.1 Allergy status to other antibiotic agents
CPT/HCPCS: 36415; 80048; 80076; 81003; 81025; 83690; 85025; 96361; 96374; 96375; 99284; J2405; J7030

== ENCOUNTER 2020-04-03 10:41 | Emergency (ER) | payer OTHER, SELFPAY ==
[2020-04-03 11:34] LABS: Urine Blood TRACE (NEG); Urine Glucose NEGATIVE (NEG); Urine Protein 1+ (NEG); Urine Specific Gravity 1.025 (1.005-1.030); Urine pH 7.5 (5.0-7.0)
[2020-04-03 12:11] LABS: Urine Bacteria 20-50 /HPF (<20); Urine Mucus HEAVY /HPF (NONE SEEN); Urine RBC <5 /HPF (NONE SEEN)
[2020-04-03 13:15] LABS: SARS-COV-2 RT PCR NEGATIVE (NEGATIVE)
[2020-04-03] MEDS ORDERED: NA CHLORIDE 0.9% 1,000 ML ONE (13:41)
[2020-04-03] MEDS ORDERED: ONDANSETRON 4 MG/2 ML VIAL ONE (14:47)
--- NOTE | 2020-04-03 14:56 | ER ---
Nurse's Notes [facility] Name: Samantha Blum Age: 25 yrs Sex: Female : 1995 Arrival Date: 04/03/2020 Time: 10:44 Bed 17 Private MD: Diagnosis: Mild hyperemesis gravidarum Presentation: 04/03 10:49 Chief complaint: Patient states: dizzy and cant keep anything down for the last week. dm5 May be . Dizziness is getting worse. Coronavirus screen: Client denies travel out of the [place] in the last 14 days. nausea, dizziness. Ebola Screen: Patient negative for fever greater than or equal to 101.5 degrees Fahrenheit, and additional compatible Ebola Virus Disease symptoms Patient denies exposure to infectious person. Patient denies travel to an Ebola-affected area in the 21 days before illness onset. No symptoms or risks identified at this time. Initial Sepsis Screen: Does the patient meet any 2 criteria?. Risk Assessment: Do you want to hurt yourself or someone else? Patient reports no desire to harm self or others. Onset of symptoms was March 28, 2020. 10:49 Method Of Arrival: Ambulatory dm5 10:49 Acuity: KHRIS 3 dm5 11:08 Initial Sepsis Screen: Does the patient have a suspected source of infection? No. dm5 Patient's initial sepsis screen is negative. Historical: - Allergies: 13:39 Zithromax; vg1 - Home Meds: 13:39 None [Active]; vg1 - PMHx: 13:39 HYPOGLYCEMIA; vg1 - Immunization history:: Adult Immunizations up to date. Screenin:55 Abuse screen: Denies threats or abuse. Nutritional screening: No deficits noted. vg1 Tuberculosis screening: No symptoms or risk factors identified. Fall Risk None identified. Assessment: 12:55 General: Appears in no apparent distress. well groomed, Behavior is calm, cooperative. vg1 Pain: Complains of pain in abdomen Pain currently is 5 out of 10 on a pain scale. Quality of pain is described as crampy. Neuro: Level of Consciousness is awake, alert, obeys commands, Oriented to person, place, time, situation. Cardiovascular: Patient's skin is warm and dry. Respiratory: Airway is patent Respiratory effort is even, unlabored, Respiratory pattern is regular, symmetrical. GI: Abdomen is flat, non-distended, Bowel sounds present X 4 quads. Abd is soft and non tender. GI: Reports nausea, vomiting, for about 2 weeks. : No signs and/or symptoms were reported regarding the genitourinary system. EENT: No signs and/or symptoms were reported regarding the EENT system. Derm: Skin is intact, is healthy with good turgor. Musculoskeletal: Circulation, motion, and sensation intact. 14:32 Reassessment: Received VO from Dr Evans to give patient 4mg of Zofran IVP x1. vg1 15:20 Reassessment: Patient appears in no apparent distress at this time. Patient is alert, vg1 oriented x 3, equal unlabored respirations, skin warm/dry/pink. Patient denies pain at this time. Patient states feeling better. Vital Signs: 11:08 BP 130 / 77; Pulse 101; Resp 20; Temp 98.1; Pulse Ox 99% on R/A; Weight 107.5 kg; dm5 Height 4 ft. 11 in. (149.86 cm); Pain 0/10; 12:57 BP 109 / 59; Pulse 73; Resp 18; Pulse Ox 99% on R/A; vg1 14:30 BP 102 / 51; Pulse 75; Resp 18; Pulse Ox 98% on R/A; vg1 15:30 BP 119 / 55; Pulse 70; Resp 16; Pulse Ox 100% on R/A; vg1 11:08 Body Mass Index 47.87 (107.50 kg, 149.86 cm) dm5 ED Course: 10:44 Patient arrived in ED. ds1 10:50 Triage completed. dm5 12:24 COVID swab sent to lab. Flu and/or RSV swab sent to lab. em1 12:49 Adalgisa Elmore, RN is Primary Nurse. vg1 12:55 Patient has correct armband on for positive identification. Bed in low position. Call vg1 light in reach. 12:55 Arm band placed on. vg1 13:11 Noah Evans MD is Attending Physician. kdr 13:35 Inserted saline lock: 20 gauge in right antecubital area, using aseptic technique. vg1 15:50 No provider procedures requiring assistance completed. IV discontinued, intact, vg1 bleeding controlled, No redness/swelling at site. Pressure dressing applied. Administered Medications: 13:38 Drug: NS 0.9% 1000 ml Route: IV; Rate: 1 bolus; Site: right antecubital; vg1 15:20 Follow up: IV Status: Completed infusion; IV Intake: 1000ml vg1 14:37 Drug: Zofran (Ondansetron) 4 mg Route: IVP; Site: right antecubital; vg1 15:20 Follow up: Response: Nausea is decreased vg1 Intake: 15:20 IV: 1000ml; Total: 1000ml. vg1 Outcome: 14:55 Discharge ordered by . kdr 15:40 Discharge ordered by MD. kdr 15:51 Discharged to home ambulatory. vg1 15:51 Condition: stable 15:51 Discharge instructions given to patient, Instructed on discharge instructions, follow up and referral plans. medication usage, Demonstrated understanding of instructions, follow-up care, medications, Prescriptions given X 2. 15:53 Patient left the ED. vg1 Signatures: Jeri Hull RN RN dm5 Noah Evans MD MD kdr Sanford, Demi ds1 Benoit Magaña emAdalgisa Paredes RN RN vg1
--- NOTE | 2020-04-03 14:56 | EDPHYS ---
Physician Documentation [facility] Name: Samantha Blum Age: 25 yrs Sex: Female : 1995 Arrival Date: 04/03/2020 Time: 10:44 Bed 17 Private MD: ED Physician Noah Evans HPI: 04/04 07:00 This 25 yrs old Female presents to ER via Ambulatory with complaints of kdr Nausea/Vomiting. 07:00 The patient presents to the emergency department with nausea, that is mild, that is kdr moderate, vomiting, that is intermittent, abdominal pain, of the abdomen diffusely. Onset: The symptoms/episode began/occurred gradually, 1 week(s) ago. Possible causes: bad food exposure, . The symptoms are aggravated by movement, food , The symptoms are alleviated by nothing. Associated signs and symptoms: Pertinent positives: abdominal pain, nausea, vomiting. Severity of symptoms: At their worst the symptoms were moderate in the emergency department the symptoms are unchanged. The patient has not experienced similar symptoms in the past. The patient has not recently seen a physician. Historical: - Allergies: 04/03 13:39 Zithromax; vg1 - Home Meds: 13:39 None [Active]; vg1 - PMHx: 13:39 HYPOGLYCEMIA; vg1 - Immunization history:: Adult Immunizations up to date. ROS: 04/04 07:00 Constitutional: Negative for fever, chills, and weight loss, Eyes: Negative for injury, kdr pain, redness, and discharge, ENT: Negative for injury, pain, and discharge, Neck: Negative for injury, pain, and swelling, Cardiovascular: Negative for chest pain, palpitations, and edema, Respiratory: Negative for shortness of breath, cough, wheezing, and pleuritic chest pain, Back: Negative for injury and pain, : Negative for injury, bleeding, discharge, and swelling, MS/Extremity: Negative for injury and deformity, Skin: Negative for injury, rash, and discoloration, Neuro: Negative for headache, weakness, numbness, tingling, and seizure activity. Psych: Negative for depression, anxiety, suicide ideation, homicidal ideation, and hallucinations, Allergy/Immunology: Negative for hives, rash, and allergies, Endocrine: Negative for neck swelling, polydipsia, polyuria, polyphagia, and marked weight changes, Hematologic/Lymphatic: Negative for swollen nodes, abnormal bleeding, and unusual bruising. Abdomen/GI: Positive for abdominal pain, nausea and vomiting, abdominal cramps, Negative for black/tarry stool, rectal pain, rectal bleeding, bowel incontinence. Exam: 07:00 Constitutional: This is a well developed, well nourished patient who is awake, alert, kdr and in no acute distress. Head/Face: Normocephalic, atraumatic. Eyes: Pupils equal round and reactive to light, extra-ocular motions intact. Lids and lashes normal. Conjunctiva and sclera are non-icteric and not injected. Cornea within normal limits. Periorbital areas with no swelling, redness, or edema. Neck: Trachea midline, no thyromegaly or masses palpated, and no cervical lymphadenopathy. Supple, full range of motion without nuchal rigidity, or vertebral point tenderness. No Meningismus. Chest/axilla: Normal chest wall appearance and motion. Nontender with no deformity. No lesions are appreciated. Cardiovascular: Regular rate and rhythm with a normal S1 and S2. No gallops, murmurs, or rubs. Normal PMI, no JVD. No pulse deficits. Respiratory: Lungs have equal breath sounds bilaterally, clear to auscultation and percussion. No rales, rhonchi or wheezes noted. No increased work of breathing, no retractions or nasal flaring. Back: No spinal tenderness. No costovertebral tenderness. Full range of motion. Skin: Warm, dry with normal turgor. Normal color with no rashes, no lesions, and no evidence of cellulitis. MS/ Extremity: Pulses equal, no cyanosis. Neurovascular intact. Full, normal range of motion. Neuro: Awake and alert, GCS 15, oriented to person, place, time, and situation. Cranial nerves II-XII grossly intact. Motor strength 5/5 in all extremities. Sensory grossly intact. Cerebellar exam normal. Normal gait. Psych: Awake, alert, with orientation to person, place and time. Behavior, mood, and affect are within normal limits. 07:00 Abdomen/GI: Inspection: abdomen appears normal, Bowel sounds: diminished, in all quadrants, Palpation: soft, mild abdominal tenderness, in all quadrants. Vital Signs: 04/03 11:08 BP 130 / 77; Pulse 101; Resp 20; Temp 98.1; Pulse Ox 99% on R/A; Weight 107.5 kg; dm5 Height 4 ft. 11 in. (149.86 cm); Pain 0/10; 12:57 BP 109 / 59; Pulse 73; Resp 18; Pulse Ox 99% on R/A; vg1 14:30 BP 102 / 51; Pulse 75; Resp 18; Pulse Ox 98% on R/A; vg1 15:30 BP 119 / 55; Pulse 70; Resp 16; Pulse Ox 100% on R/A; vg1 11:08 Body Mass Index 47.87 (107.50 kg, 149.86 cm) dm5 MDM: 14:55 Patient medically screened. kdr 04/04 07:00 Data reviewed: vital signs, nurses notes, lab test result(s), radiologic studies. kdr Counseling: I had a detailed discussion with the patient and/or guardian regarding: the historical points, exam findings, and any diagnostic results supporting the discharge/admit diagnosis, lab results, the need for outpatient follow up. 04/03 11:17 Order name: Urine Dipstick--Ancillary (enter results); Complete Time: 13:21 dm5 04/03 11:17 Order name: Urine --Ancillary (enter results); Complete Time: 13:21 dm5 04/03 11:17 Order name: Urine Microscopic Only; Complete Time: 13:21 dm5 04/03 13:15 Order name: COVID-19/FLU A+B; Complete Time: 13:21 EDMS 04/03 13:28 Order name: IV Saline Lock; Complete Time: 13:38 vg1 04/03 14:38 Order name: PO challenge; Complete Time: 15:31 kdr Administered Medications: 04/03 13:38 Drug: NS 0.9% 1000 ml Route: IV; Rate: 1 bolus; Site: right antecubital; vg1 15:20 Follow up: IV Status: Completed infusion; IV Intake: 1000ml vg1 14:37 Drug: Zofran (Ondansetron) 4 mg Route: IVP; Site: right antecubital; vg1 15:20 Follow up: Response: Nausea is decreased vg1 Disposition: 04/03/20 15:40 Discharged to Home. Impression: Mild hyperemesis gravidarum. - Condition is Stable. - Discharge Instructions: Hyperemesis Gravidarum, Morning Sickness, [id number], Eating Plan for Hyperemesis Gravidarum. - Prescriptions for Zofran 4 mg Oral Tablet - take 1 tablet by ORAL route every 4-6 hours As needed; 16 tablet. Macrobid 100 mg Oral Capsule - take 1 capsule by ORAL route every 12 hours for 3 days; 6 capsule. - Medication Reconciliation Form, Thank You Letter, Work release form, Family Work Release form. - Follow up: Private Physician; When: 2 - 3 days; Reason: If symptoms return, Further diagnostic work-up, Recheck today's complaints, Continuance of care, Re-evaluation by your physician. - Problem is new. - Symptoms have improved. Signatures: Dispatcher [employer] EDMS Noah Evans MD MD kdr Adalgisa Elmore RN RN vg1 Corrections: (The following items were deleted from the chart) 12:24 10:54 Influenza Screen (A \T\ B)+BA.LAB.BRZ ordered. EDMS EDMS 12:24 10:54 CORONAVIRUS+MR.LAB.BRZ ordered. EDDC EDMS 15:05 14:55 04/03/2020 14:55 Discharged to Home. Impression: Other abnormal uterine and kdr vaginal bleeding. Condition is Stable. Forms are Medication Reconciliation Form, Thank You Letter, Antibiotic Education, Prescription Opioid Use. Follow up: Private Physician; When: 2 - 3 days; Reason: If symptoms return, Further diagnostic work-up, Recheck today's complaints, Continuance of care, Re-evaluation by your physician. Problem is new. Symptoms have improved. kdr 15:53 15:40 04/03/2020 15:40 Discharged to Home. Impression: Mild hyperemesis gravidarum. vg1 Condition is Stable. Prescriptions for Tylenol-Codeine #3 300-30 mg Oral Tablet - take 1 tablet by ORAL route every 6 hours As needed; 12 tablet, Zofran 4 mg Oral Tablet - take 1 tablet by ORAL route every 4-6 hours As needed; 12 tablet. and Forms are Medication Reconciliation Form, Thank You Letter, Antibiotic Education, Prescription Opioid Use. Follow up: Private Physician; When: 2 - 3 days; Reason: If symptoms return, Further diagnostic work-up, Recheck today's complaints, Continuance of care, Re-evaluation by your physician. Problem is new. Symptoms have improved. kdr
[2020-04-03 16:37] VITALS: TEMP 98.1
[2020-04-03 16:41] VITALS: BP 119/55; O2SAT 100
== END 2020-04-03 15:53 | disposition home or self-care (01) ==
LOC: ER 10:41
DX: O21.0 Mild hyperemesis gravidarum (principal); Z20.822 Contact with and (suspected) exposure to COVID-19; Z88.1 Allergy status to other antibiotic agents
CPT/HCPCS: 0240U; 81003; 81015; 81025; 96361; 96374; 99284; J2405; J7030

== ENCOUNTER 2020-04-08 18:53 | Emergency (ER) | payer OTHER, SELFPAY ==
[2020-04-08] MEDS ORDERED: NA CHLORIDE 0.9% 1,000 ML ONE (20:06)
[2020-04-08] MEDS ORDERED: PROMETHAZINE INJ 25 MG/ML AMP ONE ×2 (20:06→20:37)
[2020-04-08 20:27] LABS: Absolute Lymphocytes (CBC) 1.7 K/uL (0.7-4.9); Basophils % 0.5 % (0-1.3); Hematocrit 37.2 % (36.0-45.0); Lymphocytes % 25.6 % (15.3-44.8); MPV 8.7 fL (7.6-11.3); RBC Red Blood Cell Count 4.47 M/uL (3.86-4.86)
[2020-04-08 20:54] LABS: BUN Blood Urea Nitrogen 12 mg/dL (7-18); Bicarbonate 25 mmol/L (21-32); Glucose Level 89 mg/dL (74-106); HCG, Quantitative 37605 mIU/mL (1-3); Potassium 3.8 mmol/L (3.5-5.1); Sodium Level 136 mmol/L (136-145)
[2020-04-08 21:47] LABS: Urine Blood NEGATIVE (NEG); Urine Glucose NEGATIVE (NEG); Urine Protein NEGATIVE (NEG); Urine Specific Gravity 1.025 (1.005-1.030)
[2020-04-08] MEDS ORDERED: ACETAMINOPHEN 325 MG TABLET ONE (22:05)
--- NOTE | 2020-04-08 22:30 | EDPHYS ---
Physician Documentation [facility] Name: Samantha Blum Age: 25 yrs Sex: Female : 1995 Arrival Date: 04/08/2020 Time: 18:55 Bed 24 Private MD: ED Physician Luis Enrique Platt HPI: 04/08 19:44 This 25 yrs old Female presents to ER via Ambulatory with complaints of pkl Abdominal Pain, Dizziness. 19:45 The patient presents with abdominal pain in the lower abdomen. Onset: The pkl symptoms/episode began/occurred 1 week(s) ago, and became worse today. The symptoms do not radiate. Associated signs and symptoms: Pertinent positives: nausea. The patient has been recently seen at the [facility] Emergency Department, last week, for similar complaints. Patient was seen in this ER 5 days ago. Urine test was positive. Her LMP was 02/27/20. 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 - Social history:: Smoking status: Patient/guardian denies using tobacco, Stopped _ months ago 1. ROS: 19:45 Eyes: Negative for injury, pain, redness, and discharge, ENT: Negative for injury, pkl pain, and discharge, Neck: Negative for injury, pain, and swelling, Cardiovascular: Negative for chest pain, palpitations, and edema, Respiratory: Negative for shortness of breath, cough, wheezing, and pleuritic chest pain. 19:45 Abdomen/GI: Positive for abdominal pain, of the right lower quadrant and left lower quadrant. 19:45 Back: Negative for acute changes. 19:45 : Negative for urinary symptoms. 19:45 MS/extremity: Negative for acute changes. 19:45 Skin: Negative for rash. 19:45 Neuro: Negative for altered mental status. Exam: 19:45 Head/Face: Normocephalic, atraumatic. Eyes: Pupils equal round and reactive to light, pkl extra-ocular motions intact. Lids and lashes normal. Conjunctiva and sclera are non-icteric and not injected. Cornea within normal limits. Periorbital areas with no swelling, redness, or edema. ENT: Nares patent. No nasal discharge, no septal abnormalities noted. Tympanic membranes are normal and external auditory canals are clear. Oropharynx with no redness, swelling, or masses, exudates, or evidence of obstruction, uvula midline. Mucous membranes moist. Neck: Trachea midline, no thyromegaly or masses palpated, and no cervical lymphadenopathy. Supple, full range of motion without nuchal rigidity, or vertebral point tenderness. No Meningismus. Chest/axilla: Normal chest wall appearance and motion. Nontender with no deformity. No lesions are appreciated. Cardiovascular: Regular rate and rhythm with a normal S1 and S2. No gallops, murmurs, or rubs. Normal PMI, no JVD. No pulse deficits. Respiratory: Lungs have equal breath sounds bilaterally, clear to auscultation and percussion. No rales, rhonchi or wheezes noted. No increased work of breathing, no retractions or nasal flaring. 19:45 Abdomen/GI: Bowel sounds: normal, Palpation: soft, mild abdominal tenderness, in the right lower quadrant and left lower quadrant. 19:45 Back: Exam negative for acute changes. 19:45 : Exam negative for vaginal bleeding. 19:45 Musculoskeletal/extremity: Exam is negative for acute changes. 19:45 Skin: Exam negative for rash. 19:45 Neuro: Orientation: is normal, Mentation: is normal, Cranial nerves: grossly normal, Motor: is normal. Vital Signs: 19:19 BP 122 / 102; Pulse 95; Resp 22; Temp 98.5; Pulse Ox 99% on R/A; Weight 108.41 kg; dm5 Height 4 ft. 11 in. (149.86 cm); Pain 8/10; 20:30 BP 114 / 62; Pulse 75; Resp 18; Pulse Ox 98% on R/A; vg1 21:30 BP 107 / 56; Pulse 70; Resp 16; Pulse Ox 100% on R/A; vg1 19:19 Body Mass Index 48.27 (108.41 kg, 149.86 cm) dm5 MDM: 19:29 Patient medically screened. pkl 22:25 Data reviewed: vital signs, nurses notes, lab test result(s), radiologic studies, pkl ultrasound. ED course: Patient feeling better. Discussed lab and US finding with patient. Advised to follow up with Dr. Kong in 1 to 2 days. Patient understood instructions. 04/08 19:43 Order name: CBC with Diff pkl 04/08 19:43 Order name: Chem 7; Complete Time: 20:57 pkl 04/08 19:43 Order name: Quantitative Hcg; Complete Time: 20:57 pkl 04/08 19:43 Order name: Rh Typing; Complete Time: 22:22 pkl 04/08 19:43 Order name: CBC with Automated Diff; Complete Time: 20:35 EDMS 04/08 20:02 Order name: Urine Dipstick-Ancillary (obtain specimen); Complete Time: 20:03 mw2 04/08 20:02 Order name: Urine Test (obtain specimen); Complete Time: 20:02 mw2 04/08 20:02 Order name: Urine Dipstick--Ancillary (enter results); Complete Time: 22:22 mw2 04/08 20:02 Order name: Urine --Ancillary (enter results); Complete Time: 22:22 mw2 04/08 21:01 Order name: US Transvaginal Study (Probe) pkl Administered Medications: 20:30 Drug: NS 0.9% 1000 ml Route: IV; Rate: 125 ml/hr; Site: right antecubital; vg1 23:18 Follow up: IV Status: Completed infusion; IV Intake: 400ml vg1 20:30 Drug: Phenergan 12.5 mg Route: IVP; Site: right antecubital; vg1 21:53 Follow up: Response: Nausea is decreased vg1 21:53 Drug: Tylenol 650 mg Route: PO; vg1 22:36 Follow up: Response: No adverse reaction; Pain is decreased vg1 Point of Care Testing: Urine : 19:30 hCG Reading: Positive; Control Reading: Positive; jp3 Disposition: 04/08/20 22:29 Discharged to Home. Impression: 1st Trimester . Posible demise. - Condition is Stable. - Prescriptions for promethazine 25 mg Oral Tablet - take 1 tablet by ORAL route every 8 hours As needed; 15 tablet. - Medication Reconciliation Form, Thank You Letter, Antibiotic Education, Prescription Opioid Use, Work release form form. - Follow up: Mark Anthony Kong MD; When: 1 - 2 days; Reason: Re-evaluation by your physician. - Problem is new. - Symptoms have improved. Signatures: Dispatcher [employer] Jeri Duncan, RN RN dm5 Luis Enrique Platt MD MD pkl Josette Santa mw2 Adalgisa Elmore, RN RN vg1 Corrections: (The following items were deleted from the chart) 21:26 19:44 URINALYSIS+U.LAB.BRZ ordered. [facility] 23:18 22:29 04/08/2020 22:29 Discharged to Home. Impression: 1st Trimester . Posible vg1 demise. Condition is Stable. Forms are Medication Reconciliation Form, Thank You Letter, Antibiotic Education, Prescription Opioid Use. Follow up: Mark Anthony Kong; When: 1 - 2 days; Reason: Re-evaluation by your physician. Problem is new. Symptoms have improved. pkl
--- NOTE | 2020-04-08 22:30 | ER ---
Nurse's Notes [facility] Name: Samantha Blum Age: 25 yrs Sex: Female : 1995 Arrival Date: 04/08/2020 Time: 18:55 Bed 24 Private MD: Diagnosis: 1st Trimester . Posible demise Presentation: 04/08 19:19 Chief complaint: Patient states: seen here last Wednesday and told to come back if the dm5 pain and nausea didn't get better. pain rated at 8/10, pt crying and shaking due to pain. Pt unable to get into regular physician for 3 weeks and states that the pain is unbearable. Coronavirus screen: Client denies travel out of the [place] in the last 14 days. nausea, vomiting. Client presents with at least one sign or symptom that may indicate coronavirus-19. Standard/surgical mask placed on the client. Ebola Screen: Patient negative for fever greater than or equal to 101.5 degrees Fahrenheit, and additional compatible Ebola Virus Disease symptoms Patient denies exposure to infectious person. Patient denies travel to an Ebola-affected area in the 21 days before illness onset. No symptoms or risks identified at this time. Initial Sepsis Screen: Does the patient meet any 2 criteria? RR > 20 per min. No. Patient's initial sepsis screen is negative. Does the patient have a suspected source of infection? No. Patient's initial sepsis screen is negative. Risk Assessment: Do you want to hurt yourself or someone else? Patient reports no desire to harm self or others. Onset of symptoms was February 2020. 19:19 Method Of Arrival: Ambulatory dm5 19:19 Acuity: KHRIS 3 dm5 Triage Assessment: 19:23 General: Appears in no apparent distress. uncomfortable, Behavior is calm, cooperative. dm5 Pain: Complains of pain in back and abdomen Pain currently is 8 out of 10 on a pain scale. Neuro: No deficits noted. Cardiovascular: No deficits noted. Respiratory: Airway is patent Respiratory effort is even, unlabored, Respiratory pattern is regular, symmetrical. GI: Reports lower abdominal pain, nausea. : No signs and/or symptoms were reported regarding the genitourinary system. Derm: Skin is pink, warm \T\ dry. 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 - Social history:: Smoking status: Patient/guardian denies using tobacco, Stopped _ months ago 1. Screenin:35 Abuse screen: Denies threats or abuse. Nutritional screening: No deficits noted. vg1 Tuberculosis screening: No symptoms or risk factors identified. Fall Risk None identified. Assessment: 19:35 General: Appears in no apparent distress. uncomfortable, Behavior is calm, cooperative. vg1 Pain: Complains of pain in lower abd Pain currently is 8 out of 10 on a pain scale. Pain began a week ago. Aggravated by eating, repositioning. Neuro: Level of Consciousness is awake, alert, obeys commands, Oriented to person, place, time, situation. Cardiovascular: Patient's skin is warm and dry. Respiratory: Airway is patent Respiratory effort is even, unlabored, Respiratory pattern is regular, symmetrical. 19:35 GI: Bowel sounds present in right upper quadrant, left upper quadrant and right lower vg1 quadrant hypoactive in left lower quadrant Abd is soft Abdomen is tender to palpation in left lower quadrant. : No signs and/or symptoms were reported regarding the genitourinary system. EENT: No signs and/or symptoms were reported regarding the EENT system. Derm: Skin is intact, is healthy with good turgor. Musculoskeletal: Circulation, motion, and sensation intact. 19:44 GI: Reports Last BM was 2 days ago, states bowel was hard. vg1 20:30 Reassessment: Patient appears in no apparent distress at this time. Patient is alert, vg1 oriented x 3, equal unlabored respirations, skin warm/dry/pink. Patient states feeling better. 21:30 Reassessment: Patient appears in no apparent distress at this time. Patient is alert, vg1 oriented x 3, equal unlabored respirations, skin warm/dry/pink. Patient states feeling better. 21:52 Reassessment: Received VO from Dr Platt to administer 650 mg of Tylenol PO x1. vg1 22:30 Reassessment: Patient appears in no apparent distress at this time. Patient is alert, vg1 oriented x 3, equal unlabored respirations, skin warm/dry/pink. Patient states feeling better. Vital Signs: 19:19 BP 122 / 102; Pulse 95; Resp 22; Temp 98.5; Pulse Ox 99% on R/A; Weight 108.41 kg; dm5 Height 4 ft. 11 in. (149.86 cm); Pain 8/10; 20:30 BP 114 / 62; Pulse 75; Resp 18; Pulse Ox 98% on R/A; vg1 21:30 BP 107 / 56; Pulse 70; Resp 16; Pulse Ox 100% on R/A; vg1 19:19 Body Mass Index 48.27 (108.41 kg, 149.86 cm) dm5 ED Course: 18:55 Patient arrived in ED. ds1 19:22 Triage completed. dm5 19:23 Arm band placed on. dm5 19:28 Luis Enrique Platt MD is Attending Physician. pkl 19:30 Adalgisa Elmore RN is Primary Nurse. vg1 19:35 Patient has correct armband on for positive identification. Bed in low position. Call vg1 light in reach. Side rails up X 1. 20:05 Initial lab(s) drawn, by me, sent to lab. T\T\S collected, blood band applied to patient. jp3 Inserted saline lock: 20 gauge in right antecubital area, using aseptic technique. Blood collected. 21:48 US at bedside. vg1 22:13 US Transvaginal Study (Probe) In Process Unspecified. EDMS 22:28 Mark Anthony Kong MD is Referral Physician. pkl 23:17 No provider procedures requiring assistance completed. IV discontinued, intact, vg1 bleeding controlled, No redness/swelling at site. Pressure dressing applied. Administered Medications: 20:30 Drug: NS 0.9% 1000 ml Route: IV; Rate: 125 ml/hr; Site: right antecubital; vg1 23:18 Follow up: IV Status: Completed infusion; IV Intake: 400ml vg1 20:30 Drug: Phenergan 12.5 mg Route: IVP; Site: right antecubital; vg1 21:53 Follow up: Response: Nausea is decreased vg1 21:53 Drug: Tylenol 650 mg Route: PO; vg1 22:36 Follow up: Response: No adverse reaction; Pain is decreased vg1 Point of Care Testing: Urine : 19:30 hCG Reading: Positive; Control Reading: Positive; jp3 Intake: 23:18 IV: 400ml; Total: 400ml. vg1 Outcome: 22:29 Discharge ordered by . luz 23:17 Discharged to home ambulatory. vg1 23:17 Condition: stable 23:17 Discharge instructions given to patient, Instructed on discharge instructions, follow up and referral plans. medication usage, Demonstrated understanding of instructions, follow-up care, medications. 23:18 Patient left the ED. vg1 Signatures: Dispatcher [employer] Jeri Duncan, RN RN dm5 Luis Enrique Platt MD MD pkl Sanford, Demi ds1 Reji Banda jp3 Adalgisa Elmore, RN RN vg1
[2020-04-08 23:22] VITALS: TEMP 98.5
[2020-04-08 23:24] VITALS: BP 107/56; O2SAT 100
--- NOTE | 2020-04-09 08:11 | RAD REPORT ---
EXAM DESCRIPTION: US - Transvaginal Study Probe - 04/08/2020 10:13 pm CLINICAL HISTORY: pelvic pain, Preliminary findings provided at the time of the study. COMPARISON: No comparisons TECHNIQUE: Endovaginal sonography was performed. FINDINGS: A normal shaped intrauterine gestational sac is identified containing a yolk sac. No pole is identified. Average sac diameter measurements correspond to a 6 week 3 day age. A small 6 x 3 mm subchorionic hemorrhage is present not regarded as significant at this small size. No blood or fluid in the cul de sac. Right ovary is identified and shows normal blood flow within the stroma. No right adnexal mass. Left ovary is obscured by bowel. No left adnexal mass identified. No findings to suspect ectopic . IMPRESSION: Six week 3 day size gestational sac with yolk sac but no pole. No adnexal abnormality seen. Follow-up sonography can be performed as clinically warranted.
== END 2020-04-08 23:18 | disposition home or self-care (01) ==
LOC: ER 18:53
DX: O99.891 Other specified diseases and conditions complicating pregnancy (principal); R10.30 Lower abdominal pain, unspecified; Z3A.01 Less than 8 weeks gestation of pregnancy; Z87.891 Personal history of nicotine dependence
CPT/HCPCS: 36415; 76830; 80048; 81003; 81025; 84702; 85025; 86901; 96361; 96374; 99284; J2550; J7030

== ENCOUNTER 2020-04-24 10:01 | Emergency (ER) | payer OTHER ==
[2020-04-24 12:55] LABS: Urine Blood NEGATIVE (NEG); Urine Glucose NEGATIVE (NEG); Urine Protein NEGATIVE (NEG); Urine Specific Gravity 1.025 (1.005-1.030); Urine pH 7.5 (5.0-7.0)
--- NOTE | 2020-04-24 13:10 | RAD REPORT ---
EXAM DESCRIPTION: US - Transvaginal OB - 04/24/2020 12:52 pm CLINICAL HISTORY: ABD PAIN COMPARISON: No relevant comparison FINDINGS: A normal shaped intrauterine gestational sac identified with yolk sac. pole is ident ified. Stallings-rump length corresponds to an 8 week 4 day age. Heart rate is 165 BPM. A very small inci dental subchorionic bleed is present. This is not considered significant at this small size. Overall uterine size is normal. No myometrial mass. Cervical canal is closed. Both ovaries are identified and show normal blood flow within the stroma. No adnexal abnormality. No blood or fluid in the cul de sac. IMPRESSION: Single 8 week 4 day IUP with normal heart rate. Calculated BHARATI is 11/30/2020. Very small incidental subchorionic hemorrhage. No worrisome intrauterine or extrauterine finding.
[2020-04-24 13:19] LABS: Absolute Lymphocytes (CBC) 1.9 K/uL (0.7-4.9); Basophils % 0.6 % (0-1.3); Hematocrit 38.1 % (36.0-45.0); Lymphocytes % 24.7 % (15.3-44.8); MPV 8.2 fL (7.6-11.3)
[2020-04-24] MEDS ORDERED: ONDANSETRON 4 MG/2 ML VIAL ONE (13:30)
[2020-04-24] MEDS ORDERED: DIPHENHYDRAMINE 50 MG/ML VIAL ONE (13:30)
[2020-04-24] MEDS ORDERED: NA CHLORIDE 0.9% 1,000 ML ONE (13:30)
--- NOTE | 2020-04-24 13:35 | ER ---
Nurse's Notes [facility] Name: Samantha Blum Age: 25 yrs Sex: Female : 1995 Arrival Date: 04/24/2020 Time: 10:03 Bed 23 Private MD: Larry Serrano E Diagnosis: Cystitis, unspecified without hematuria Presentation: 04/24 11:00 Chief complaint: Patient states: "I am about 8 weeks and I've been nauseated aa5 and throwing up and Phenergan is not helping". Pt also reports vaginal itching and burning. Denies any vaginal bleeding. 11:00 Coronavirus screen: Client denies travel out of the [place] in the last 14 days. nausea, aa5 vomiting. Ebola Screen: Patient negative for fever greater than or equal to 101.5 degrees Fahrenheit, and additional compatible Ebola Virus Disease symptoms. Initial Sepsis Screen: Does the patient meet any 2 criteria? No. Patient's initial sepsis screen is negative. Does the patient have a suspected source of infection? No. Patient's initial sepsis screen is negative. Risk Assessment: Do you want to hurt yourself or someone else? Patient reports no desire to harm self or others. Onset of symptoms was March 2020. 11:00 Acuity: KHRIS 3 aa5 11:00 Method Of Arrival: Wheelchair aa5 Triage Assessment: 13:00 General: Appears in no apparent distress. iw 13:00 General: Behavior is calm. iw Historical: - Allergies: 11:06 Zithromax; aa5 - Home Meds: 11:06 Vitamin Oral tab 1 tab once daily [Active]; aa5 - PMHx: 11:06 HYPOGLYCEMIA; aa5 - PSHx: 11:06 None; aa5 - Immunization history:: Flu vaccine is not up to date. - Social history:: Smoking status: Patient denies any tobacco usage or history of. - Family history:: not pertinent. Screenin:55 Abuse screen: Denies threats or abuse. Denies injuries from another. Nutritional ss screening: No deficits noted. Tuberculosis screening: Never had TB. Fall Risk None identified. Assessment: 13:00 General: Appears in no apparent distress. comfortable, Behavior is calm, cooperative. iw Pain: Complains of pain in abdomen. Neuro: Level of Consciousness is awake, alert, obeys commands, Oriented to person, place, time, situation, Moves all extremities. Cardiovascular: Patient's skin is warm and dry. GI: Abdomen is non-distended, Reports nausea, vomiting. Derm: Skin is intact, is healthy with good turgor. 13:55 Reassessment: Patient appears in no apparent distress at this time. Patient and/or ss family updated on plan of care and expected duration. Pain level reassessed. Patient is alert, oriented x 3, equal unlabored respirations, skin warm/dry/pink. Vital Signs: 11:00 BP 108 / 65; Pulse 87; Resp 18 S; Temp 98.6(TE); Pulse Ox 98% on R/A; aa5 ED Course: 10:03 Patient arrived in ED. ag5 10:04 Larry Serrano MD is Private Physician. ag5 11:06 Triage completed. aa5 11:06 Arm band placed on. aa5 11:34 Zuleyma Muro MD is Attending Physician. ma2 11:55 Ginger Cunningham RN is Primary Nurse. iw 13:00 Inserted saline lock: 20 gauge in left antecubital area, using aseptic technique. Blood dh4 collected. 13:55 Patient has correct armband on for positive identification. Bed in low position. Call ss light in reach. 13:55 No provider procedures requiring assistance completed. IV discontinued, intact, ss bleeding controlled, No redness/swelling at site. Pressure dressing applied. Administered Medications: 13:20 Drug: NS 0.9% 1000 ml Route: IV; Rate: 1 bolus; Site: right antecubital; iw 13:51 Follow up: IV Status: IV converted to saline lock 13:20 Drug: Zofran (Ondansetron) 4 mg Route: IVP; Site: right antecubital; iw 13:50 Follow up: Response: No adverse reaction 13:20 Drug: Benadryl 12.5 mg Route: IVP; Site: right antecubital; iw 13:50 Follow up: Response: No adverse reaction 13:40 Drug: Rocephin 1 grams Route: IV; Rate: calculated rate; Site: right antecubital; ss 13:51 Follow up: Response: Medication administered at discharge.; IV Status: Completed ss infusion Point of Care Testing: Blood Glucose: 11:06 Blood Glucose: 85 mg/dL; rashad Ranges: Outcome: 13:34 Discharge ordered by . bony 13:55 Discharged to home ambulatory, via wheelchair. 13:55 Condition: good 13:55 Discharge instructions given to patient, Instructed on discharge instructions, follow up and referral plans. medication usage, Demonstrated understanding of instructions, follow-up care, medications, Prescriptions given X 2. 13:56 Patient left the ED. Signatures: Ginger Cunningham RN RN Liz Delong RN RN aa5 Smirch, Shelby, RN RN Zuleyma Muro MD MD ma2 Gaskin, Ajare ag5 Huhn, Donald dh
--- NOTE | 2020-04-24 13:35 | EDPHYS ---
Physician Documentation [facility] Name: Samantha Blum Age: 25 yrs Sex: Female : 1995 Arrival Date: 04/24/2020 Time: 10:03 Bed 23 Private MD: Larry Serrano E ED Physician Zuleyma Muro HPI: 04/24 13:32 This 25 yrs old Female presents to ER via Wheelchair with complaints of ma2 Nausea/Vomiting, Vaginal Pain, 7 Wks . 13:32 The patient presents to the emergency department with nausea. Onset: The ma2 symptoms/episode began/occurred gradually, 1 day(s) ago. Associated signs and symptoms: Pertinent negatives: belching, diarrhea, fever, flatulence, hematuria. The patient has experienced similar episodes in the past. patient has nausea vomiting for 3 weeks diagnosed with hyperemesis gravidarum, here with dysuria, vomiting yesterday as usual . Historical: - Allergies: 11:06 Zithromax; aa5 - Home Meds: 11:06 Vitamin Oral tab 1 tab once daily [Active]; aa5 - PMHx: 11:06 HYPOGLYCEMIA; aa5 - PSHx: 11:06 None; aa5 - Immunization history:: Flu vaccine is not up to date. - Social history:: Smoking status: Patient denies any tobacco usage or history of. - Family history:: not pertinent. ROS: 13:32 Constitutional: Negative for fever, chills, and weight loss. ma2 13:32 All other systems are negative. Exam: 13:32 Constitutional: This is a well developed, well nourished patient who is awake, alert, ma2 and in no acute distress. Chest/axilla: Normal chest wall appearance and motion. Nontender with no deformity. No lesions are appreciated. Cardiovascular: Regular rate and rhythm with a normal S1 and S2. No gallops, murmurs, or rubs. Normal PMI, no JVD. No pulse deficits. Respiratory: Lungs have equal breath sounds bilaterally, clear to auscultation and percussion. No rales, rhonchi or wheezes noted. No increased work of breathing, no retractions or nasal flaring. Abdomen/GI: Soft, non-tender, with normal bowel sounds. No distension or tympany. No guarding or rebound. No evidence of tenderness throughout. Back: No spinal tenderness. No costovertebral tenderness. Full range of motion. Skin: Warm, dry with normal turgor. Normal color with no rashes, no lesions, and no evidence of cellulitis. MS/ Extremity: Pulses equal, no cyanosis. Neurovascular intact. Full, normal range of motion. Neuro: Awake and alert, GCS 15, oriented to person, place, time, and situation. Cranial nerves II-XII grossly intact. Motor strength 5/5 in all extremities. Sensory grossly intact. Cerebellar exam normal. Normal gait. Vital Signs: 11:00 BP 108 / 65; Pulse 87; Resp 18 S; Temp 98.6(TE); Pulse Ox 98% on R/A; aa5 MDM: 11:34 Patient medically screened. [facility] 13:32 Differential diagnosis: Nonspecific abd pain, gastritis, viral gastroenteritis, ma2 gastroenteritis. Data reviewed: vital signs, nurses notes. Counseling: I had a detailed discussion with the patient and/or guardian regarding: the historical points, exam findings, and any diagnostic results supporting the discharge/admit diagnosis, the presence of at least one elevated blood pressure reading (>120/80) during this emergency department visit, the need for outpatient follow up. Response to treatment: the patient's symptoms have markedly improved after treatment. 04/24 11:16 Order name: Glucose, Ancillary Testing [facility] 04/24 11:16 Order name: Glucose, Ancillary Testing; Complete Time: 11:34 [facility] 04/24 11:41 Order name: Quantitative Hcg [facility] 04/24 11:41 Order name: Abo/rh Typing [facility] 04/24 11:41 Order name: Basic Metabolic Panel [facility] 04/24 11:41 Order name: CBC with Diff; Complete Time: 13:21 [facility] 04/24 11:42 Order name: HCG, Quantitative [facility] 04/24 12:19 Order name: Urine Dipstick--Ancillary (enter results) 04/24 12:19 Order name: Urine --Ancillary (enter results) 04/24 12:55 Order name: Urine --Ancillary; Complete Time: 13:14 [facility] 04/24 12:55 Order name: Urine Dipstick-Ancillary; Complete Time: 13:14 [facility] 04/24 13:11 Order name: US; Complete Time: 13:14 [facility] 04/24 11:41 Order name: IV Saline Lock; Complete Time: 13:20 [facility] 04/24 11:41 Order name: Labs collected and sent; Complete Time: 13:20 [facility] 04/24 11:41 Order name: NPO; Complete Time: 12:48 nd2 04/24 11:41 Order name: Urine Dipstick-Ancillary (obtain specimen); Complete Time: 12:48 ma2 Administered Medications: 13:20 Drug: NS 0.9% 1000 ml Route: IV; Rate: 1 bolus; Site: right antecubital; 13:51 Follow up: IV Status: IV converted to saline lock 13:20 Drug: Zofran (Ondansetron) 4 mg Route: IVP; Site: right antecubital; 13:50 Follow up: Response: No adverse reaction 13:20 Drug: Benadryl 12.5 mg Route: IVP; Site: right antecubital; iw 13:50 Follow up: Response: No adverse reaction 13:40 Drug: Rocephin 1 grams Route: IV; Rate: calculated rate; Site: right antecubital; 13:51 Follow up: Response: Medication administered at discharge.; IV Status: Completed ss infusion Point of Care Testing: Blood Glucose: 11:06 Blood Glucose: 85 mg/dL; aa5 Ranges: Critical Glucose Levels:Adult <50 mg/dl or >400 mg/dl <40 mg/dl or >180 mg/dl Disposition: 04/24/20 13:34 Discharged to Home. Impression: Cystitis, unspecified without hematuria. - Condition is Stable. - Discharge Instructions: Urinary Tract Infection, Adult. - Prescriptions for Benadryl 25 mg Oral Capsule - take 1 capsule by ORAL route every 6 hours As needed; 30 tablet. Keflex 250 mg Oral Capsule - take 1 capsule by ORAL route every 6 hours for 10 days; 40 capsule. - Work release form, Medication Reconciliation Form, Thank You Letter, Antibiotic Education, Prescription Opioid Use form. - Follow up: Private Physician; When: Tomorrow; Reason: Continuance of care. Signatures: Dispatcher [employer] [facility] Ginger Cunningham RN RN Liz Delong RN RN aa5 Yuliana Toure RN RN Zuleyma Muro MD MD ma2 Corrections: (The following items were deleted from the chart) 13:55 11:42 OB Complete+US.RAD.DESTINYZ ordered. EDMS EDMS 13:56 13:34 04/24/2020 13:34 Discharged to Home. Impression: Cystitis, unspecified without ss hematuria. Condition is Stable. Prescriptions for Benadryl 25 mg Oral Capsule - take 1 capsule by ORAL route every 6 hours As needed; 30 tablet, Keflex 250 mg Oral Capsule - take 1 capsule by ORAL route every 6 hours for 10 days; 40 capsule. and Forms are Medication Reconciliation Form, Thank You Letter, Antibiotic Education, Prescription Opioid Use. Follow up: Private Physician; When: Tomorrow; Reason: Continuance of care. ma2
[2020-04-24 13:51] LABS: BUN Blood Urea Nitrogen 8 mg/dL (7-18); Bicarbonate 26 mmol/L (21-32); Glucose Level 82 mg/dL (74-106); HCG, Quantitative 174011 mIU/mL (1-3); Potassium 3.6 mmol/L (3.5-5.1); Sodium Level 137 mmol/L (136-145)
[2020-04-24] MEDS ORDERED: CEFTRIAXONE/SWI 1gm 1 GM/10 ML SYR ONE (13:58)
[2020-04-24 14:03] VITALS: BP 108/65; TEMP 98.6; O2SAT 98
== END 2020-04-24 13:56 | disposition home or self-care (01) ==
LOC: ER 10:01
DX: O23.11 Infections of bladder in pregnancy, first trimester (principal); N30.90 Cystitis, unspecified without hematuria; Z88.3 Allergy status to other anti-infective agents
CPT/HCPCS: 96361; 85025; 80048; 36415; 86900; 81025; 86901; 82947; 84702; 81003; 76817; 96375; 96374; 99284; J1200; J0696; J7030; J2405

== ENCOUNTER 2020-06-16 18:00 | Emergency (ER) | payer OTHER ==
--- OUTSIDE RECORDS SUMMARY | 2020-06-16 18:02 | XMS REPORT | Continuity of Care Document ---
:1995 Author Organization [facility] t Address [address] [place] [address] [address]. [address] [place] [address] Care Team Providers Name Role Phone Doctor Unassigned, Name Attending Clinician Unavailable Singer RIVAS Attending Clinician Thiago SAL Attending Clinician Pob, Lab Main Attending Clinician Unavailable Thiago SAL Admitting Clinician Problems This patient has no known problems. Allergies, Adverse Reactions, Alerts This patient has no known allergies or adverse reactions. Medications This patient has no known medications. Procedures This patient has no known procedures. Encounters Start End Encounter Admission Attending Care Care Encounter Source Date/Time Date/Time Type Type Clinicians Facility Department ID 2020-06-14 2020-06-14 Orders Doctor BELCHER [id number] 00:00:00 00:00:00 Only UnassNEYDA cshilling [id number] [place] [facility] [id number] 2020-05-31 2020-05-31 Emergency Singer KSCONNIE [id number] 09:14:00 10:39:00 Jatin Graham [id number] [place] [id number] [place] [id number] 2020-05-23 2020-05-23 [facility] Latoya Das KSCONNIE [id number] 10:04:00 18:15:00 Encounter Gladys [id number] [place] [id number] [place] [id number] 2020-05-23 2020-05-23 Unix Engineer Mychal Cam [facility] [id number] 10:03:40 10:18:40 Visit Lab Main [place] [id number] [place] [id number] [place] [phone] [facility] [address] Results This patient has no known results.
[2020-06-16 19:25] LABS: Absolute Lymphocytes (CBC) 1.8 K/uL (0.7-4.9); Basophils % 0.7 % (0-1.3); Hematocrit 36.3 % (36.0-45.0); Lymphocytes % 22.7 % (15.3-44.8); MPV 8.6 fL (7.6-11.3); RBC Red Blood Cell Count 4.34 M/uL (3.86-4.86)
[2020-06-16] MEDS ORDERED: ACETAMINOPHEN 500 MG TAB ONE (19:34)
--- NOTE | 2020-06-16 19:42 | RAD REPORT ---
EXAM DESCRIPTION: US - OB Limited - 06/16/2020 7:28 pm CLINICAL HISTORY: with abdominal pain COMPARISON: March 2020 FINDINGS: Single live intrauterine in cephalic presentation. Cardiac activity 152 beats pe r minute. Placenta is posterior. Amniotic fluid is within normal limits. BPD 3.2 centimeters 15 weeks 6 days HC 11.7 centimeters 15 weeks 5 days AC 9.9 centimeters 15 weeks 6 days FL 2 centimeters 15 weeks 6 days ratios within normal limits Cervix 4.9 centimeters The right and left ovary normal size and echotexture. The right and left adnexal unremarkable. IMPRESSION: Single live intrauterine in cephalic presentation. The estimated gestational age 15 weeks 6 days BHARATI 12/02/2020 If a survey is desired it should be performed in approximately 2-1/2 weeks
[2020-06-16 19:49] LABS: BUN Blood Urea Nitrogen 6 mg/dL (7-18); Bicarbonate 23 mmol/L (21-32); Glucose Level 81 mg/dL (74-106); Potassium 3.4 mmol/L (3.5-5.1); Sodium Level 139 mmol/L (136-145)
[2020-06-16 19:57] LABS: HCG, Quantitative 32836 mIU/mL (1-3)
--- NOTE | 2020-06-16 20:07 | ER ---
Nurse's Notes [facility] Name: Samantha Blum Age: 25 yrs Sex: Female : 1995 Arrival Date: 06/16/2020 Time: 18:01 Bed 27 Private MD: Larry Serrano E Diagnosis: 15 weeks gestation of ;Lower abdominal pain, unspecified Presentation: 06/16 18:22 Chief complaint: Patient states: lower abd pain since this morning, pt reports being 15 aa5 weeks , denies vaginal bleeding. 18:22 Onset of symptoms was June 16, 2020. aa5 18:22 Acuity: KHRIS 3 aa5 18:22 Method Of Arrival: Wheelchair aa5 18:22 Coronavirus screen: At this time, the client does not indicate any symptoms associated aa5 with coronavirus-19. Ebola Screen: Patient negative for fever greater than or equal to 101.5 degrees Fahrenheit, and additional compatible Ebola Virus Disease symptoms. Initial Sepsis Screen: Does the patient meet any 2 criteria? HR > 90 bpm. Does the patient have a suspected source of infection? No. Patient's initial sepsis screen is negative. Risk Assessment: Do you want to hurt yourself or someone else? Patient reports no desire to harm self or others. 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 - Social history:: Smoking status: Patient denies any tobacco usage or history of. Screenin:33 Abuse screen: Denies threats or abuse. Denies injuries from another. Nutritional zb screening: No deficits noted. Tuberculosis screening: No symptoms or risk factors identified. Fall Risk None identified. Assessment: 18:30 Reassessment: Ultrasound at bedside. zb 19:00 General: Appears in no apparent distress. uncomfortable, Behavior is calm, cooperative, zb appropriate for age. Pain: Complains of pain in right lower quadrant and left lower quadrant Pain currently is 6 out of 10 on a pain scale. Quality of pain is described as aching, dull, sharp, throbbing, Pain began 1 day ago. Neuro: Level of Consciousness is awake, alert, obeys commands, Oriented to person, place, time, situation. Cardiovascular: Patient's skin is warm and dry. Respiratory: Airway is patent Respiratory effort is even, unlabored, Respiratory pattern is regular, symmetrical. GI: Abdomen is round obese, . Bowel sounds present X 4 quads. Abdomen is tender to palpation in right lower quadrant and left lower quadrant Reports cramping, Patient currently denies constipation, nausea, vomiting. : No signs and/or symptoms were reported regarding the genitourinary system. Derm: Skin is intact, is healthy with good turgor, Skin is dry, Skin is normal, Skin temperature is warm. Musculoskeletal: Range of motion: intact in all extremities. 19:36 Reassessment: Patient appears in no apparent distress at this time. Patient and/or zb family updated on plan of care and expected duration. Pain level reassessed. Patient is alert, oriented x 3, equal unlabored respirations, skin warm/dry/pink. patient lying in bed currently no changes at this time. 20:10 Reassessment: Ecp at bedside discussed care. d/c instructions given. gait steady and zb even. Vital Signs: 18:22 BP 111 / 68; Pulse 92; Resp 18 S; Temp 98.4(TE); Pulse Ox 99% on R/A; aa5 19:35 BP 101 / 71; Pulse 77; Resp 16; Pulse Ox 100% on R/A; zb 20:16 BP 90 / 68; Pulse 77; Resp 16; Pulse Ox 98% on R/A; zb ED Course: 18:01 Patient arrived in ED. am2 18:01 Larry Serrano MD is Private Physician. am2 18:12 Veronica Wagner FNP-C is [facility]. kb 18:12 Zuleyma Muro MD is Attending Physician. kb 18:22 Arm band placed on Patient placed in an exam room, on a stretcher. aa5 18:28 Triage completed. aa5 18:58 Ronna Soto RN is Primary Nurse. zb 19:00 Inserted saline lock: 20 gauge in right antecubital area, using aseptic technique. zb Blood collected. 19:29 OB Limited In Process Unspecified. EDMS 19:33 Patient has correct armband on for positive identification. Bed in low position. Call zb light in reach. Side rails up X 1. Pulse ox on. NIBP on. Door closed. Noise minimized. Warm blanket given. 20:02 Urine collected: clean catch specimen, ramon colored. zb 20:16 No provider procedures requiring assistance completed. IV discontinued, intact, zb bleeding controlled, No redness/swelling at site. Pressure dressing applied. Administered Medications: 19:19 Drug: Tylenol 1000 mg Route: PO; zb 19:30 Follow up: Response: No adverse reaction zb Outcome: 20:07 Discharge ordered by . dwight 20:16 Discharged to home ambulatory. zb 20:16 Condition: stable 20:16 Discharge instructions given to patient, Instructed on discharge instructions, follow up and referral plans. Demonstrated understanding of instructions, follow-up care. 20:26 Patient left the ED. zb Signatures: Dispatcher [employer] [facility] Veronica Wagner, BRANT-C [employer] STRIP GAUGER-Liz Guadalupe, RN RN [email or web address] Malissa Calvo am2 Ronna Soto RN RN zb Corrections: (The following items were deleted from the chart) 19:28 19:27 In radiology for Transvaginal Ob+US.RAD.FALGUNI. [facility] EDMS 20:39 20:10 Reassessment: Ecp at bedside discussed care. zb zb
--- NOTE | 2020-06-16 20:08 | EDPHYS ---
Physician Documentation [facility] Name: Samantha Blum Age: 25 yrs Sex: Female : 1995 Arrival Date: 06/16/2020 Time: 18:01 Bed 27 Private MD: Larry Serrano E ED Physician Zuleyma Muro HPI: 06/16 19:42 This 25 yrs old Female presents to ER via Wheelchair with complaints of kb Abdominal Pain - 15 wks preg. 19:44 The patient presents to the emergency department with abdominal pain, of the suprapubic kb area, right lower quadrant and left lower quadrant. The estimated gestational age is 15 weeks. course: care: at a clinic, Leakage of Fluid: none appreciated, Ultrasound: the patient had an ultrasound, which was normal, Risk/complications: no obvious risks or complications are appreciated. Previous pregnancies: in previous pregnancies patient has had. Associated signs and symptoms: Pertinent positives: abdominal pain, Pertinent negatives: dysuria, fever, vaginal bleeding. The patient has not experienced similar symptoms in the past. The patient has not recently seen a physician. 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 - Social history:: Smoking status: Patient denies any tobacco usage or history of. ROS: 19:42 Constitutional: Negative for fever, chills, and weight loss, Cardiovascular: Negative kb for chest pain, palpitations, and edema, Respiratory: Negative for shortness of breath, cough, wheezing, and pleuritic chest pain, : Negative for injury, bleeding, discharge, and swelling, MS/Extremity: Negative for injury and deformity, Skin: Negative for injury, rash, and discoloration, Neuro: Negative for headache, weakness, numbness, tingling, and seizure. 19:42 Abdomen/GI: Positive for abdominal pain, Negative for nausea, vomiting, and diarrhea. Exam: 19:42 Constitutional: This is a well developed, well nourished patient who is awake, alert, kb and in no acute distress. Head/Face: Normocephalic, atraumatic. Cardiovascular: Regular rate and rhythm with a normal S1 and S2. No gallops, murmurs, or rubs. No pulse deficits. Respiratory: Respirations even and unlabored. No increased work of breathing, no retractions or nasal flaring. Abdomen/GI: Soft, non-tender. No distention Skin: Warm, dry with normal turgor. Normal color. MS/ Extremity: Pulses equal, no cyanosis. Neurovascular intact. Full, normal range of motion. Neuro: Awake and alert, GCS 15, oriented to person, place, time, and situation. Moves all extremities. Normal gait. Vital Signs: 18:22 BP 111 / 68; Pulse 92; Resp 18 S; Temp 98.4(TE); Pulse Ox 99% on R/A; aa5 19:35 BP 101 / 71; Pulse 77; Resp 16; Pulse Ox 100% on R/A; zb 20:16 BP 90 / 68; Pulse 77; Resp 16; Pulse Ox 98% on R/A; zb MDM: 18:22 Patient medically screened. kb 19:21 Data reviewed: vital signs, nurses notes. Data interpreted: Pulse oximetry: on room air kb is 99 %. Interpretation: normal. 19:44 Counseling: I had a detailed discussion with the patient and/or guardian regarding: the kb historical points, exam findings, and any diagnostic results supporting the discharge/admit diagnosis, lab results, radiology results, the need for outpatient follow up, a family practitioner, to return to the emergency department if symptoms worsen or persist or if there are any questions or concerns that arise at home. 06/16 18:23 Order name: Quantitative Hcg; Complete Time: 20:06 kb 06/16 18:23 Order name: Abo/rh Typing; Complete Time: 19:41 kb 06/16 18: Order name: Basic Metabolic Panel; Complete Time: 20:06 kb 06/16 18:23 Order name: CBC with Diff; Complete Time: 19:36 kb 06/16 20:06 Order name: Urine Dipstick--Ancillary (enter results) tt3 06/16 20:06 Order name: Urine --Ancillary (enter results) tt3 06/16 18:23 Order name: Urine Test (obtain specimen); Complete Time: 20:02 kb 06/16 18:23 Order name: IV Saline Lock; Complete Time: 19:17 kb 06/16 18:23 Order name: Labs collected and sent; Complete Time: 19:17 kb 06/16 18:23 Order name: NPO; Complete Time: 19:17 kb 06/16 18:23 Order name: Urine Dipstick-Ancillary (obtain specimen); Complete Time: 20:02 kb 06/16 19:29 Order name: OB Limited; Complete Time: 19:45 EDMS Administered Medications: 19:19 Drug: Tylenol 1000 mg Route: PO; zb 19:30 Follow up: Response: No adverse reaction zb Disposition: 06/17 19:27 Co-signature as Attending Physician, Zuleyma Muro MD. ma2 Disposition: 06/16/20 20:07 Discharged to Home. Impression: 15 weeks gestation of , Lower abdominal pain, unspecified. - Condition is Stable. - Discharge Instructions: Abdominal Pain, Adult, Gbxv-bw-Uuxu, Second Trimester of , Goru-aw-Wcas. - Medication Reconciliation Form, Thank You Letter, Antibiotic Education, Prescription Opioid Use form. - Follow up: Emergency Department; When: As needed; Reason: Worsening of condition. Follow up: Private Physician; When: 2 - 3 days; Reason: Recheck today's complaints, Continuance of care, Re-evaluation by your physician. Signatures: Dispatcher [employer] [facility] Veronica Wagner, BRANT-C MIXING MACHINE ATTENDANT-Liz Guadalupe RN RN aa5 Zuleyma Muro MD MD ma2 Ronna Soto RN RN zb Corrections: (The following items were deleted from the chart) 06/16 19:28 18:23 Transvaginal Ob+US.RAD.BRZ ordered. [facility] EDPR 20:26 20:07 06/16/2020 20:07 Discharged to Home. Impression: 15 weeks gestation of ; zb Lower abdominal pain, unspecified. Condition is Stable. Discharge Instructions: Abdominal Pain, Adult, Ovaa-pu-Vbzh, Second Trimester of , Smff-xs-Njru. Forms are Medication Reconciliation Form, Thank You Letter, Antibiotic Education, Prescription Opioid Use. Follow up: Emergency Department; When: As needed; Reason: Worsening of condition. Follow up: Private Physician; When: 2 - 3 days; Reason: Recheck today's complaints, Continuance of care, Re-evaluation by your physician. kb 20:26 20:26 06/16/2020 20:07 Discharged to Home. Impression: 15 weeks gestation of ; zb Lower abdominal pain, unspecified. Condition is Stable. Discharge Instructions: Abdominal Pain, Adult, Gjwc-uq-Oeho, Second Trimester of , Qgku-tw-Ffep. Forms are Medication Reconciliation Form, Thank You Letter, Antibiotic Education, Prescription Opioid Use. Follow up: Emergency Department; When: As needed; Reason: Worsening of condition. Follow up: Private Physician; When: 2 - 3 days; Reason: Recheck today's complaints, Continuance of care, Re-evaluation by your physician. zb
[2020-06-16 20:10] LABS: Urine Blood NEGATIVE (NEG); Urine Glucose NEGATIVE (NEG); Urine Protein NEGATIVE (NEG); Urine Specific Gravity >1.030 (1.005-1.030); Urine pH 5.5 (5.0-7.0)
[2020-06-16 20:57] VITALS: TEMP 98.4
[2020-06-16 20:59] VITALS: BP 90/68; O2SAT 98
== END 2020-06-16 20:26 | disposition home or self-care (01) ==
LOC: ER 18:00
DX: O26.892 Other specified pregnancy related conditions, second trimester (principal); Z3A.15 15 weeks gestation of pregnancy; Z88.1 Allergy status to other antibiotic agents
CPT/HCPCS: 36415; 76815; 80048; 81003; 81025; 84702; 85025; 86900; 86901; 99284

== ENCOUNTER 2020-07-22 20:11 | Emergency (ER) | payer OTHER ==
--- OUTSIDE RECORDS SUMMARY | 2020-07-22 20:14 | XMS REPORT | Continuity of Care Document ---
:1995 Author Organization [facility] t Address [address] [place] [address] Dr. Daniels. [address] [place] [address] Care Team Providers Name Role Phone 2, [facility] Room Attending Clinician Unavailable Juliana Guzman MD Attending Clinician Ultrasound Attending Clinician Unavailable Pob, Lab Main Attending Clinician Unavailable Doctor Unassigned, Name Attending Clinician Unavailable Singer RIVAS Attending Clinician Thiago SAL Attending Clinician Thiago SAL Admitting Clinician Problems This patient has no known problems. Allergies, Adverse Reactions, Alerts This patient has no known allergies or adverse reactions. Medications This patient has no known medications. Procedures This patient has no known procedures. Encounters Start End Encounter Admission Attending Care Care Encounter Source Date/Time Date/Time Type Type Clinicians Facility Department ID 2020-07-17 2020-07-17 [place] 2, [facility] 1.2.840.11 [id number] 14:21:51 16[facility]37[id number] [id number] 2020-07-17 2020-07-17 Letter FREDERICK Guzman [id number] 00:00:00 00:00:00 [id number] [facility] [id number] 2020-07-15 2020-07-15 [place] Mirela, [facility] 1.2.840.114 [id number] 09:27:01 10:42:01 Visit [facility] [employer]OTH TESTER QUALITY [id number] [facility] [id number] MATERNAL [id number] & CHILD [address] [place] [address] 2020-07-09 2020-07-09 [place] Tutu [facility] 1.2.840.114 [id number] 07:44:23 07:59:23 Visit Lab Main Gladys [id number] [place] [id number] [facility] [place] [phone] [address] 2020-07-02 2020-07-02 [place] Tutu [facility] 1.2.840.114 [id number] 10:36:39 10:51:39 Visit Lab Main Gladys [id number] [place] [id number] [place]io [id number] [address] 2020-07-02 2020-07-02 Orders Doctor YE 1.2.840.114 [id number] 00:00:00 00:00:00 Only Unassigned, NEYDA [id number] [place] [facility] 4.2.7.2.686 [id number] 2020-06-14 2020-06-14 Orders Doctor YE 1.2.840.114 [id number] 00:00:00 00:00:00 Only Unassigned, NEYDA [id number] [place] [facility] 4.2.7.2.686 [id number] 2020-05-31 2020-05-31 Emergency Singer [facility] [id number] 09:14:00 10:39:00 Jatin Dupreeton [id number] [place] [id number] [place] [id number] 2020-05-23 2020-05-23 Hospital Latoya Das [facility] 1.2.840.114 [id number] 10:04:00 18:15:00 Encounter Gladys [id number] [place] [id number] [place] [id number] 2020-05-23 2020-05-23 [place] Mychal Cam [facility] 1.2.840.114 [id number] 10:03:40 10:18:40 Visit Lab Main [place] [id number] [place] [id number] [place] [phone] [address] Results This patient has no known results.
--- NOTE | 2020-07-22 22:43 | ER ---
Nurse's Notes [facility] Name: Samantha Blum Age: 25 yrs Sex: Female : 1995 Arrival Date: 07/22/2020 Time: 20:17 Bed Waiting Private MD: Diagnosis: Presentation: 07/22 20:38 Chief complaint: Patient states: Feels like something is ripping my stomach open, ca1 started around 1730 today. 21 weeks and initially taken by EMS to L\T\D. Denies N/V/D. Coronavirus screen: Client denies travel out of the [place] in the last 14 days. At this time, the client does not indicate any symptoms associated with coronavirus-19. Ebola Screen: Patient negative for fever greater than or equal to 101.5 degrees Fahrenheit, and additional compatible Ebola Virus Disease symptoms Patient denies exposure to infectious person. Patient denies travel to an Ebola-affected area in the 21 days before illness onset. No symptoms or risks identified at this time. Initial Sepsis Screen: Does the patient meet any 2 criteria? No. Patient's initial sepsis screen is negative. Does the patient have a suspected source of infection? No. Patient's initial sepsis screen is negative. Risk Assessment: Do you want to hurt yourself or someone else? Patient reports no desire to harm self or others. Onset of symptoms was July 22, 2020. 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 - Social history:: Smoking status: Patient/guardian denies using tobacco, but has a distant history of tobacco abuse. Assessment: 22:43 Reassessment: pt not in lobby. iw Vital Signs: 20:38 BP 95 / 57; Pulse 77; Resp 18 S; Temp 97.2(TE); Pulse Ox 99% ; Weight 104.33 kg (R); ca1 Height 4 ft. 11 in. (149.86 cm) (R); Pain 8/10; 20:38 Body Mass Index 46.45 (104.33 kg, 149.86 cm) ca1 ED Course: 20:17 Patient arrived in ED. ag3 20:40 Triage completed. ca1 20:40 Arm band placed on right wrist. ca1 Administered Medications: No medications were administered Outcome: 22:43 Patient left the ED. iw Signatures: Ginger Cunningham, RN RN iw Jada Handy 3 Rosetta Antunez, RN RN ca1
[2020-07-22 22:51] VITALS: BP 95/57; TEMP 97.2; O2SAT 99
== END 2020-07-22 22:43 | disposition left against medical advice (07) ==
LOC: ER 20:11
DX: Z53.21 Procedure and treatment not carried out due to patient leaving prior to being seen by health care provider (principal)
CPT/HCPCS: 99281

== ENCOUNTER 2023-08-02 08:51 | Emergency (ER) | payer SELFPAY ==
--- OUTSIDE RECORDS SUMMARY | 2023-08-02 08:58 | XMS REPORT | Continuity of Care Document ---
Author Name Unknown Address [address] [facility] [address] [place] [address] [facility] thconnect Address [address] [place] [address] Care Team Providers Care Learning Disabled Teacher Name Role Phone Zach Larry Bañuelos Primary Care Physician [phone] Micha Das MD Attending Clinician [phone] MICHA DAS Attending Clinician Unavailable Doctor Unassigned, [place] Attending Clinician U pennie Clark MD, Marita Attending Clinician [phone] Only, Adc Test Attending Clinician Unavailable Kimi Finch PA-C Attending Clinician [phone] KIMI FINCH Attending Clinician Unavailable Asya Knox MD Attending Clinician [phone] Celena Foley MD Attending Clinician [phone] Carol Garces RN Attending Clinician Unavailable Pob, [facility] Main Attending Clinician Unavailmigel Duffy RN, Art Attending Clinician Unavailab patiño 2, [facility] U[facility] Room Attending Clinician Unavailcisco Guzman MD, Ute Andrews Attending Clinician [phone] Kendrick Hill MD Attending Clinician [phone] Ultrasound, [facility] Attending Clinician Unavailcisco Anderson MD, Nicko Chery Attending Clinician [phone] Jatin Mcgowan DO Attending Clinician [phone] ASYA KNOX Admitting Clinician Unavailable CELENA FOLEY Admitting Clinician Unavailable MICHA DAS Admitting Clinician Unavailable Thiago SAL Micha Admitting Clinician Asya Knox MD Admitting Clinician Celena Foley MD Admitting Clinician [phone] Payers Payer Name Policy Type Policy Number Effective Date Expirati on Date Source [employer] MEDICAID [id number] 2020 00:00:00 MEDICAID OF [place] [id number] 2020 00:00:00 Problems Condition Name Condition Details Condition Category Status Onset Date Resolution Date Last Treatment Date Treating Clinician Comments Source Encounter for elective induction of labor Encounter for elective induction of labor Disease Active 11-26 00:00: 00 [facility] Liveborn infant, of [place] , born in hospital by vaginal delivery Liveborn infant, of [place] , born in hospital by vaginal delivery Disease Active 11-26 00:00: 00 [facility] Morbid obesity with body mass index of 40.0-49.9 Morbid obesity with body mass index of 40.0-49.9 Disease Active 11-10 00:00: 00 [facility] Morbid obesity with body mass index of 40.0-49.9 Morbid obesity with body mass index of 40.0-49.9 Disease Active 11-10 00:00: 00 [facility] contractio ns contractio ns Disease Active 8- 00:00: 00 [facility] Decreased movements in third trimester Decreased movements in third trimester Disease Active 8-11 00:00: 00 [facility] COVID-19 COVID-19 Disease Active 7-26 00:00: 00 [facility] Other constipati on Other constipati on Disease Active 08-27 00:00: 00 [facility] Low back pain, unspecifie d back pain laterality , unspecifie d chronicity , unspecifie d whether sciatica present Low back pain, unspecifie d back pain laterality , unspecifie d chronicity , unspecifie d whether sciatica present Disease Active 2021-0 6-01 00:00: 00 [facility] Rash Rash Disease Active 5-04 00:00: 00 [facility] Abnormal ultrasound Abnormal ultrasound Disease Active 4-21 00:00: 00 [facility] Trichomoni asis Trichomoni asis Disease Active 2-25 00:00: 00 [facility] Obesity in Obesity in Disease Active 04-25 00:00: 00 [facility] Supervisio n of high risk in third trimester Supervisio n of high risk in third trimester Disease Active 04-25 00:00: 00 [facility] Class 3 severe obesity without serious comorbidit y with body mass index (BMI) of 45.0 to 49.9 in adult, unspecifie d obesity type Class 3 severe obesity without serious comorbidit y with body mass index (BMI) of 45.0 to 49.9 in adult, unspecifie d obesity type Disease Active 04-25 00:00: 00 [facility] Nausea and vomiting, intractabi lity of vomiting not specified, unspecifie d vomiting type Nausea and vomiting, intractabi lity of vomiting not specified, unspecifie d vomiting type Disease Active 04-25 00:00: 00 [facility] Urinary tract infection without hematuria, site unspecifie d Urinary tract infection without hematuria, site unspecifie d Disease Active 04-25 00:00: 00 [facility] Allergies, Adverse Reactions, Alerts Allergy Name Allergy Type Status Severity Reaction(s) Onset Date Inactive Date Treating Clinician Comments Source Azithrom ycin Propensi ty to adverse reaction s Active Other - See comments 12-23 00:00: 00 Since childhood [facility] AZITHROM YCIN DRUG INGREDI Active Hives 12-23 00:00: 00 [facility] Social History Social Habit Start Date Stop Date Quantity Comments Source ASSERTION 2020-03-12 00:00:00 [facility] Exposure to SARS-CoV-2 (event) 2020-10-26 00:00:00 2020-11-25 12:47:00 Not sure [facility] History of Social function 2020-06-20 00:00:00 2020-06-20 00:00:00 [facility] Tobacco use and exposure 2020-04-25 00:00:00 2020-04-25 00:00:00 Smokeless tobacco non-user [facility] Alcohol intake 2020-04-25 00:00:00 2020-04-25 00:00:00 Ex-drinker (finding) [facility] Sex Assigned At 1995 00:00:00 1995 00:00:00 [facility] Smoking Status Start Date Stop Date Source Never smoked tobacco [facility] Medications Ordered Medication Name Filled Medication Name Start Date Stop Date Current Medication? Ordering Clinician Indication Dosage Frequency Signature (SIG) Comments Components Source etonogestre L (NEXPLANON) implant 68 mg 2020-03 22:30: 00 01-02 21:33 :00 No [id number] 68mg [facility] ibuprofen 600 mg tablet 11-28 00:00: 00 Yes [id number] 102 600mg Take 1 tablet by mouth every 6 (six) hours as needed (Pain). Take with food or milk. [facility] vitamin w/FA (PRENATABS RX) tablet 1 tablet 11-27 14:00: 00 Yes 1{tbl} 1 tablet, Oral, DAILY, First dose on Wed11/27/20 at 0900, Until Discontinu ed, Routine [facility] LR 1000 mL + oxytocin 20 units IV Solution 11-27 04:30: 00 Yes 125mL/h 125 mL/hr, IV Infusion, CONTINUOUS , Starting Wed11/26/20 at 2330
X 1 liter only.
[facility] rho(D) immune globulin (RHOGAM) syringe 300 mcg 11-27 03:25: 45 Yes 300ug 300 mcg, Intramuscu lar, ONCE, For 1 dose, Conditiona l, Routine [facility] ibuprofen (IBU) tablet 600 mg 11-27 03:25: 04 Yes 600mg 600 mg, Oral, Q6HPRN, Starting Wed11/26/20 at 2225, Until Discontinu ed, Routine, Pain (scale 4-6) [facility] acetaminoph en (TYLENOL) tablet 650 mg 11-27 03:25: 04 Yes 650mg 650 mg, Oral, Q6HPRN, Starting Wed11/26/20 at 2225, Until Discontinu ed, Routine, Pain (scale 1-3) [facility] diphenhydrA MINE (BENADRYL) tablet 25 mg 11-27 03:25: 03 Yes 25mg 25 mg, Oral, Q6HPRN, Starting Wed11/26/20 at 2225, Until Discontinu ed, Routine, Sleep, Itching [facility] diphenhydrA MINE (BENADRYL) 25 mg in NaCl 0.9% (NS) piggyback 11-27 03:25: 03 Yes 25mg 25 mg, IV Piggyback, Administer over 30 Minutes, Q6HPRN, Starting Wed11/26/20 at 2225, Until Discontinu ed, Routine, Itching [facility] ondansetron (ZOFRAN (PF)) injection 4 mg 11-27 03:25: 03 Yes 4mg 4 mg, Slow IV Push, Q8HPRN, Starting Wed11/26/20 at 2225, Until Discontinu ed, Routine, Nausea and Vomiting (N/V) [facility] simethicone (GAS RELIEF (SIMETHICON E)) chewable tablet 160 mg 11-27 03:25: 03 Yes 160mg 160 mg, Oral, PC+HSPRN, Starting Wed11/26/20 at 2225, Until Discontinu ed, Routine, Gas [facility] docusate calcium (SURFAK) capsule 240 mg 11-27 03:25: 03 Yes 240mg 240 mg, Oral, QDAILYPRN, Starting Wed11/26/20 at 2225, Until Discontinu ed, Routine, Constipati on [facility] magnesium hydroxide (MILK OF MAGNESIA) 400 mg/5 mL suspension 30 mL 11-27 03:25: 03 Yes 30mL 30 mL, Oral, QDAILYPRN, Starting Wed11/26/20 at 2225, Until Discontinu ed, Routine, Constipati on [facility] benzocaine- menthol (DERMOPLAST ) 20-0.5 % topical spray 11-27 03:25: 03 Yes Topical, PRN, Starting Wed11/26/20 at 2225, Until Discontinu ed, Routine, Perineum discomfort [facility] FENTanyl 2 mcg/mL + bupivacaine 0.125% in NS 250 mL epidural bag 11-27 01:18: 00 11-27 04:26 :26 No Intra-op [facility] lidocaine-e pinephrine (XYLOCAINE W/EPINEPHRI NE) 1.5 %-1:200,000 injection 11-27 01:15: 00 11-27 04:26 :26 No Intraderma l, ONCE INTRA PROCEDURE, Starting Wed11/26/20 at 2015, Until Discontinu ed, Routine, Intra-op [facility] misoprostol (CYTOTEC) quarter-tab let 25 mcg 11-26 19:00: 00 11-26 18:53 :00 No 25ug 25 mcg, Oral, ONCE, 1 dose, Wed11/26/20 at 1400, Routine [facility] misoprostol (CYTOTEC) quarter-tab let 25 mcg 11-26 16:45: 00 11-26 16:38 :00 No 25ug 25 mcg, Vaginal, ONCE, 1 dose, Wed11/26/20 at 1145, Routine [facility] ondansetron (ZOFRAN (PF)) injection 4 mg 11-26 14:54: 28 Yes 4mg 4 mg, Slow IV Push, Q6HPRN, Starting Wed11/26/20 at 0954, Until Discontinu ed, Routine, Nausea and Vomiting (N/V) [facility] FENTanyl PF (SUBLIMAZE (PF)) injection 100 mcg 11-26 14:54: 08 11-26 22:11 :00 No 100ug 100 mcg, Slow IV Push, Q1HPRN, 2 doses, Starting Wed11/26/20 at 0954, Until Discontinu ed, Routine, Pain (scale 7-10) [facility] D5W-LR IV infusion 1,000 mL 11-26 09:00: 00 Yes 1000mL at 125 mL/hr, IV Infusion, CONTINUOUS , Starting Wed11/26/20 at 0400, Until Discontinu ed, Routine [facility] LR 1000 mL + oxytocin 20 units IV Solution 11-26 08:50: 39 Yes 2mU/min at 6-120 mL/hr, IV Infusion, TITRATE, Starting Wed11/26/20 at 0350, Until Discontinu ed, PETER [facility] sodium citrate-cit jena acid (BICITRA) 500-334 mg/5 mL solution 30 mL 11-26 08:50: 39 Yes 30mL 30 mL, Oral, PRE-PROCED URE ONCE, 1 dose, Starting Wed11/26/20 at 0350, Until Discontinu ed, Routine, Surgery/Pr ocedure [facility] lidocaine 1% (XYLOCAINE) 10 mg/mL (1 %) injection 30 mL 11-26 08:50: 39 Yes 30mL 30 mL, Infiltrati on, PRN - SEE INSTRUCTIO NS, Starting Wed11/26/20 at 0350, Until Discontinu ed, Routine, Local anesthesia , For laceration repair only as a local anesthetic as indicated. [facility] lidocaine 1% (PF) (XYLOCAINE) injection 0.3 mL 11-26 08:50: 39 Yes .3mL 0.3 mL, Infiltrati on, PRN - SEE INSTRUCTIO NS, Starting Wed11/26/20 at 0350, Until Discontinu ed, Routine, Local anesthesia , For IV line placement only as a local anesthetic . [facility] lactated ringers IV infusion 500 mL 11-26 08:50: 39 Yes 500mL at 999 mL/hr, 500 mL, IV Infusion, PRN - SEE INSTRUCTIO NS, Starting Wed11/26/20 at 0350, Until Discontinu ed, Routine [facility] lactated ringers IV infusion 1,000 mL 11-07 03:45: 00 Yes 1000mL at 125 mL/hr, 1,000 mL, IV Infusion, CONTINUOUS , Starting Wed11/06/20 at 2245, Until Discontinu ed, Routine [facility] lactated ringers IV infusion 1,000 mL 11-07 02:45: 00 11-07 01:58 :00 No 1000mL at 999 mL/hr, 1,000 mL, IV Infusion, ONCE, 1 dose, Wed11/06/20 at 2145, STAT [facility] nalbuphine (NUBAIN) injection 10 mg 11-07 02:45: 00 11-07 01:58 :00 No 10mg 10 mg, Intravenou s, ONCE, 1 dose, Wed11/06/20 at 2145, Routine [facility] proMETHazin e (PHENERGAN) 25 mg in NaCl 0.9% (NS) 50 mL IV piggyback 11-07 01:36: 27 Yes 25mg 25 mg, IV Piggyback, Q4HPRN, Starting Wed11/06/20 at 2036, Until Discontinu ed, Routine, Nausea and Vomiting (N/V) [facility] lactated ringers IV infusion 1,000 mL 11-06 23:00: 00 11-06 23:31 :00 No 1000mL at 999 mL/hr, 1,000 mL, IV Infusion, ONCE, 1 dose, Wed11/06/20 at 1815, STAT [facility] proMETHazin e (PHENERGAN) 25 mg in NaCl 0.9% (NS) 50 mL IV piggyback 11-06 23:00: 00 11-06 23:33 :00 No 25mg 25 mg, IV Piggyback, ONCE, 1 dose, Wed11/06/20 at 1815, Routine [facility] acetaminoph en (TYLENOL) tablet 650 mg 11-06 23:00: 00 11-06 23:33 :00 No 650mg 650 mg, Oral, ONCE, 1 dose, 11/06/20 at 1815, Routine [facility] vit w/iron fumarate and FA ( VITAMIN WITH MINERALS) tablet 10-21 00:00: 00 01-02 00:00 :00 No [id number] 1{tbl} Take 1 tablet by mouth daily. [facility] amoxicillin 500 mg capsule 10-09 00:00: 00 10-17 04:59 :00 No [id number] 500mg Take 1 capsule by mouth 2 (two) times daily for 7 days. [facility] clobetasoL 0.05 % ointment 08-13 00:00: 00 Yes [id number] Apply to area(s) 2 (two) times daily. [facility] cetirizine 10 mg tablet 07-30 00:00: 00 Yes [id number] 10mg Take 1 tablet by mouth daily. [facility] diphenhydrA MINE 25 mg capsule 07-30 00:00: 11-05 00:00 :00 No [id number] 25mg Take 1 capsule by mouth every 6 (six) hours as needed for Allergies. [facility] vit 33-iron-fol ic-dha (SELECT-OB + DHA) 29 mg iron-1 mg -250 mg combo pack 4- 00:00: 00 Yes [id number] 1{packe t} Take 1 Packet by mouth daily. [facility] lactated ringers IV infusion 1,000 mL 05-23 17:25: 00 Yes 1000mL at 999 mL/hr, 1,000 mL, IV Infusion, CONTINUOUS , Starting Juliana 05/23/20 at 1145, Until Discontinu ed, Routine [facility] proMETHazin e (PHENERGAN) 25 mg in NaCl 0.9% (NS) 50 mL IV piggyback 05-23 17:25: 00 05-23 17:52 :00 No 25mg 25 mg, IV Piggyback, ONCE, 1 dose, Juliana 2/25/21 at 1145, Routine [facility] SELECT-OB + DHA 29 mg iron-1 mg -250 mg combo pack 05-19 00:00: 00 Yes TAKE 1 TABLET AND 1 CAPSULE BY MOUTH ONCE DAILY [facility] metroNIDAZO LE 500 mg tablet 05-15 00:00: 00 05-23 05:59 :00 No [id number] 500mg Take 1 tablet by mouth 2 (two) times daily for 7 days. [facility] fluconazole 150 mg tablet 05-15 00:00: 00 05-20 05:59 :00 No [id number] 150mg Take 1 tablet by mouth every 72 (seventy-t wo) hours for 2 doses. [facility] metroNIDAZO LE 500 mg tablet 05-15 00:00: 00 05-16 05:59 :00 No [id number] 2000mg Take 4 tablets by mouth once now for 1 dose. [facility] proMETHazin e 12.5 mg tablet 05-09 00:00: 00 11-05 00:00 :00 No [id number] 12.5mg Take 1 tablet by mouth every 4 (four) hours as needed for Nausea and Vomiting (N/V). [facility] metoclopram florence HCl (REGLAN) 5 mg tablet 04-25 00:00: 00 Yes [id number] 5mg Take 1 tablet by mouth every 6 (six) hours as needed for Nausea and Vomiting (N/V). [facility] vit w/iron fumarate and FA ( VITAMIN WITH MINERALS) tablet 04-25 00:00: 00 Yes [id number] 1{tbl} Take 1 tablet by mouth daily. [facility] pyridoxine, VITAMIN B-6, 25 mg tablet 04-25 00:00: 00 01-02 00:00 :00 No [id number] 25mg Take 1 tablet by mouth 3 (three) times daily. [facility] doxylamine 25 mg tablet 04-25 00:00: 00 01-02 00:00 :00 No [id number] 25mg Take 1 tablet by mouth at bedtime. [facility] cephALEXin 250 mg capsule 04-24 00:00: 00 Yes [facility] promethazin e 50 mg tablet 04-09 00:00: 00 Yes TAKE 1 2 (ONE HALF) TABLET BY MOUTH 30 MINUTES BEFORE MEALS NEEDED DIRECTED [facility] Immunizations Ordered Immunization Name Filled Immunization Name Date Status Comments Source TDAP 2020-09-10 00:00:00 Completed [facility] TDAP 2020-09-10 00:00:00 Completed [facility] TDAP 2020-09-10 00:00:00 Completed [facility] TDAP 2020-09-10 00:00:00 Completed [facility] TDAP 2020-09-10 00:00:00 Completed [facility] TDAP 2020-09-10 00:00:00 Completed [facility] TDAP 2020-09-10 00:00:00 Completed [facility] TDAP 2020-09-10 00:00:00 Completed [facility] TDAP 2020-09-10 00:00:00 Completed [facility] TDAP 2020-09-10 00:00:00 Completed [facility] TDAP 2020-09-10 00:00:00 Completed [facility] TDAP 2020-09-10 00:00:00 Completed [facility] TDAP 2020-09-10 00:00:00 Completed [facility] TDAP 2020-09-10 00:00:00 Completed [facility] TDAP 2020-09-10 00:00:00 Completed [facility] TDAP 2020-09-10 00:00:00 Completed [facility] TDAP 2020-09-10 00:00:00 Completed [facility] TDAP 2020-09-10 00:00:00 Completed [facility] TDAP 2020-09-10 00:00:00 Completed [facility] TDAP 2020-09-10 00:00:00 Completed [facility] TDAP 2020-09-10 00:00:00 Completed [facility] TDAP 2020-09-10 00:00:00 Completed [facility] TDAP 2020-09-10 00:00:00 Completed [facility] TDAP 2020-09-10 00:00:00 Completed [facility] TDAP 2020-09-10 00:00:00 Completed [facility] TDAP 2020-09-10 00:00:00 Completed [facility] TDAP 2020-09-10 00:00:00 Completed [facility] TDAP 2020-09-10 00:00:00 Completed [facility] TDAP 2020-09-10 00:00:00 Completed [facility] TDAP 2020-09-10 00:00:00 Completed [facility] Influenza Virus Vaccine Quad .5 mL IM 6+ MO 2020-04-25 00:00:00 Completed [facility] Influenza Virus Vaccine Quad .5 mL IM 6+ MO 2020-04-25 00:00:00 Completed [facility] Influenza Virus Vaccine Quad .5 mL IM 6+ MO 2020-04-25 00:00:00 Completed [facility] Influenza Virus Vaccine Quad .5 mL IM 6+ MO 2020-04-25 00:00:00 Completed [facility] Influenza Virus Vaccine Quad .5 mL IM 6+ MO 2020-04-25 00:00:00 Completed [facility] Influenza Virus Vaccine Quad .5 mL IM 6+ MO 2020-04-25 00:00:00 Completed [facility] Influenza Virus Vaccine Quad .5 mL IM 6+ MO 2020-04-25 00:00:00 Completed [facility] Influenza Virus Vaccine Quad .5 mL IM 6+ MO 2020-04-25 00:00:00 Completed [facility] Influenza Virus Vaccine Quad .5 mL IM 6+ MO 2020-04-25 00:00:00 Completed [facility] Influenza Virus Vaccine Quad .5 mL IM 6+ MO 2020-04-25 00:00:00 Completed [facility] Influenza Virus Vaccine Quad .5 mL IM 6+ MO 2020-04-25 00:00:00 Completed [facility] Influenza Virus Vaccine Quad .5 mL IM 6+ MO 2020-04-25 00:00:00 Completed [facility] Influenza Virus Vaccine Quad .5 mL IM 6+ MO 2020-04-25 00:00:00 Completed [facility] Influenza Virus Vaccine Quad .5 mL IM 6+ MO 2020-04-25 00:00:00 Completed [facility] Influenza Virus Vaccine Quad .5 mL IM 6+ MO 2020-04-25 00:00:00 Completed [facility] Influenza Virus Vaccine Quad .5 mL IM 6+ MO 2020-04-25 00:00:00 Completed [facility] Influenza Virus Vaccine Quad .5 mL IM 6+ MO 2020-04-25 00:00:00 Completed [facility] Influenza Virus Vaccine Quad .5 mL IM 6+ MO 2020-04-25 00:00:00 Completed [facility] Influenza Virus Vaccine Quad .5 mL IM 6+ MO 2020-04-25 00:00:00 Completed [facility] Influenza Virus Vaccine Quad .5 mL IM 6+ MO 2020-04-25 00:00:00 Completed [facility] Influenza Virus Vaccine Quad .5 mL IM 6+ MO 2020-04-25 00:00:00 Completed [facility] Influenza Virus Vaccine Quad .5 mL IM 6+ MO 2020-04-25 00:00:00 Completed [facility] Influenza Virus Vaccine Quad .5 mL IM 6+ MO 2020-04-25 00:00:00 Completed [facility] Influenza Virus Vaccine Quad .5 mL IM 6+ MO 2020-04-25 00:00:00 Completed [facility] Influenza Virus Vaccine Quad .5 mL IM 6+ MO 2020-04-25 00:00:00 Completed [facility] Influenza Virus Vaccine Quad .5 mL IM 6+ MO 2020-04-25 00:00:00 Completed [facility] Influenza Virus Vaccine Quad .5 mL IM 6+ MO 2020-04-25 00:00:00 Completed [facility] Influenza Virus Vaccine Quad .5 mL IM 6+ MO 2020-04-25 00:00:00 Completed [facility] Influenza Virus Vaccine Quad .5 mL IM 6+ MO 2020-04-25 00:00:00 Completed [facility] Influenza Virus Vaccine Quad .5 mL IM 6+ MO 2020-04-25 00:00:00 Completed [facility] Influenza Virus Vaccine Quad .5 mL IM 6+ MO 2020-04-25 00:00:00 Completed [facility] Influenza Virus Vaccine Quad .5 mL IM 6+ MO 2020-04-25 00:00:00 Completed [facility] Influenza Virus Vaccine Quad .5 mL IM 6+ MO 2020-04-25 00:00:00 Completed [facility] Influenza Virus Vaccine Quad .5 mL IM 6+ MO 2020-04-25 00:00:00 Completed [facility] Influenza Virus Vaccine Quad .5 mL IM 6+ MO 2020-04-25 00:00:00 Completed [facility] Influenza Virus Vaccine Quad .5 mL IM 6+ MO 2020-04-25 00:00:00 Completed [facility] Influenza Virus Vaccine Quad .5 mL IM 6+ MO 2020-04-25 00:00:00 Completed [facility] Influenza Virus Vaccine Quad .5 mL IM 6+ MO 2020-04-25 00:00:00 Completed [facility] Influenza Virus Vaccine Quad .5 mL IM 6+ MO 2020-04-25 00:00:00 Completed [facility] Influenza Virus Vaccine Quad .5 mL IM 6+ MO 2020-04-25 00:00:00 Completed [facility] Influenza Virus Vaccine Quad .5 mL IM 6+ MO 2020-04-25 00:00:00 Completed [facility] Influenza Virus Vaccine Quad .5 mL IM 6+ MO 2020-04-25 00:00:00 Completed [facility] Influenza Virus Vaccine Quad .5 mL IM 6+ MO 2020-04-25 00:00:00 [facility] [facility] [place] Influenza Virus Vaccine Quad .5 mL IM 6+ MO 2020-04-25 00:00:00 Completed [facility] [place] Influenza Virus Vaccine Quad .5 mL IM 6+ MO 2020-04-25 00:00:00 Completed [facility] [place] Influenza Virus Vaccine Quad .5 mL IM 6+ MO 2020-04-25 00:00:00 Completed [facility] [place] Influenza Virus Vaccine Quad .5 mL IM 6+ MO 2020-04-25 00:00:00 Completed [facility] [place] Influenza Virus Vaccine Quad .5 mL IM 6+ MO 2020-04-25 00:00:00 Completed [facility] [place] Influenza Virus Vaccine Quad .5 mL IM 6+ MO (FLUZONE/FLULAVAL/F LUARIX) Unknown Completed [facility] [place] Vital Signs Vital Name Observation Time Observation Value Comments S ource Systolic blood pressure 2021-01-02 21:12:00 87 mm[Hg] [facility] Diastolic blood pressure 2021-01-02 21:12:00 59 mm[Hg] [facility] Heart rate 2021-01-02 21:11:00 79 /min [facility] Respiratory rate 2021-01-02 21:11:00 19 /min [facility] [place] Body height 2021-01-02 21:11:00 149.9 cm [facility] Body weight 2021-01-02 21:11:00 102.314 kg [facility] BMI 2021-01-02 21:11:00 45.56 kg/m2 [facility] Oxygen saturation in Arterial blood by Pulse oximetry 2021-01-02 21:11:00 98 /min [facility] Systolic blood pressure 2020-11-28 12:30:00 128 mm[Hg] [facility] Diastolic blood pressure 2020-11-28 12:30:00 57 mm[Hg] [facility] Heart rate 2020-11-28 12:30:00 72 /min [facility] Body temperature 2020-11-28 12:30:00 36.72 Rosi [facility] [place] Respiratory rate 2020-11-28 12:30:00 16 /min [facility] [place] Oxygen saturation in Arterial blood by Pulse oximetry 2020-11-28 12:30:00 100 /min [facility] Body height 2020-11-26 09:00:00 149.9 cm [facility] Body weight 2020-11-26 09:00:00 111.857 kg [facility] BMI 2020-11-26 09:00:00 49.81 kg/m2 [facility] Systolic blood pressure 2020-11-19 21:45:00 96 mm[Hg] [facility] Diastolic blood pressure 2020-11-19 21:45:00 62 mm[Hg] [facility] Heart rate 2020-11-19 21:45:00 89 /min [facility] Body temperature 2020-11-19 21:45:00 36.56 Rosi [facility] [place] Respiratory rate 2020-11-19 21:45:00 18 /min [facility] [place] Body height 2020-11-19 21:45:00 149.9 cm [facility] Body weight 2020-11-19 21:45:00 111.948 kg [facility] BMI 2020-11-19 21:45:00 49.85 kg/m2 [facility] Systolic blood pressure 2020-11-11 20:15:00 106 mm[Hg] [facility] Diastolic blood pressure 2020-11-11 20:15:00 77 mm[Hg] [facility] Heart rate 2020-11-11 20:15:00 92 /min [facility] Body temperature 2020-11-11 20:15:00 36.56 Rosi [facility] [place] Respiratory rate 2020-11-11 20:15:00 18 /min [facility] [place] Body height 2020-11-11 20:15:00 149.9 cm [facility] Body weight 2020-11-11 20:15:00 112.855 kg [facility] BMI 2020-11-11 20:15:00 50.25 kg/m2 [facility] Systolic blood pressure 2020-11-09 20:15:00 132 mm[Hg] [facility] Diastolic blood pressure 2020-11-09 20:15:00 69 mm[Hg] [facility] Heart rate 2020-11-09 20:15:00 87 /min [facility] Oxygen saturation in Arterial blood by Pulse oximetry 2020-11-09 20:15:00 100 /min [facility] Body temperature 2020-11-09 19:30:00 36.72 Rosi [facility] [place] Respiratory rate 2020-11-09 19:30:00 18 /min [facility] [place] Body height 2020-11-09 19:30:00 149.9 cm [facility] Body weight 2020-11-09 19:30:00 108.863 kg [facility] BMI 2020-11-09 19:30:00 48.47 kg/m2 [facility] Heart rate 2020-11-07 04:30:00 79 /min [facility] Oxygen saturation in Arterial blood by Pulse oximetry 2020-11-07 04:30:00 100 /min [facility] Systolic blood pressure 2020-11-06 23:15:00 118 mm[Hg] [facility] Diastolic blood pressure 2020-11-06 23:15:00 54 mm[Hg] [facility] Body temperature 2020-11-06 22:30:00 37 Rosi [facility] [place] Respiratory rate 2020-11-06 22:30:00 18 /min [facility] [place] Systolic blood pressure 2020-11-05 13:39:00 106 mm[Hg] [facility] Diastolic blood pressure 2020-11-05 13:39:00 74 mm[Hg] [facility] Heart rate 2020-11-05 13:39:00 114 /min [facility] Body temperature 2020-11-05 13:39:00 36.72 Rosi [facility] [place] Respiratory rate 2020-11-05 13:39:00 20 /min [facility] [place] Body height 2020-11-05 13:39:00 149.9 cm [facility] Body weight 2020-11-05 13:39:00 111.301 kg [facility] BMI 2020-11-05 13:39:00 49.56 kg/m2 [facility] Heart rate 2020-10-29 22:00:00 95 /min [facility] Systolic blood pressure 2020-10-29 21:10:00 122 mm[Hg] [facility] Diastolic blood pressure 2020-10-29 21:10:00 84 mm[Hg] [facility] Body temperature 2020-10-29 21:10:00 36.89 Rosi [facility] [place] Respiratory rate 2020-10-29 21:10:00 18 /min [facility] [place] Oxygen saturation in Arterial blood by Pulse oximetry 2020-10-29 21:10:00 99 /min [facility] Heart rate 2020-10-16 16:30:00 79 /min [facility] Oxygen saturation in Arterial blood by Pulse oximetry 2020-10-16 16:30:00 100 /min [facility] Systolic blood pressure 2020-10-16 15:58:00 138 mm[Hg] [facility] Diastolic blood pressure 2020-10-16 15:58:00 76 mm[Hg] [facility] Body temperature 2020-10-16 15:58:00 36.89 Rosi [facility] [place] Respiratory rate 2020-10-16 15:58:00 18 /min [facility] [place] Body height 2020-10-16 15:58:00 149.9 cm [facility] Body weight 2020-10-16 15:58:00 107.956 kg [facility] BMI 2020-10-16 15:58:00 48.07 kg/m2 [facility] Systolic blood pressure 2020-05-31 16:11:00 117 mm[Hg] [facility] Diastolic blood pressure 2020-05-31 16:11:00 72 mm[Hg] [facility] Heart rate 2020-05-31 16:11:00 79 /min [facility] Respiratory rate 2020-05-31 16:11:00 16 /min [facility] [place] Oxygen saturation in Arterial blood by Pulse oximetry 2020-05-31 16:11:00 97 /min [facility] Body temperature 2020-05-31 15:12:00 37.17 Rosi [facility] [place] Body height 2020-05-31 15:12:00 149.9 cm [facility] Body weight 2020-05-31 15:12:00 106.142 kg [facility] BMI 2020-05-31 15:12:00 47.26 kg/m2 [facility] Systolic blood pressure 2020-05-31 16:11:00 117 mm[Hg] [facility] Diastolic blood pressure 2020-05-31 16:11:00 72 mm[Hg] [facility] Heart rate 2020-05-31 16:11:00 79 /min [facility] Respiratory rate 2020-05-31 16:11:00 16 /min [facility] [place] Oxygen saturation in Arterial blood by Pulse oximetry 2020-05-31 16:11:00 97 /min [facility] Body temperature 2020-05-31 15:12:[address] [facility] Body height 2020-05-31 15:12:00 149.9 cm [facility] Body weight 2020-05-31 15:12:00 106.142 kg [facility] BMI 2020-05-31 15:12:00 47.26 kg/m2 [facility] Body temperature 2020-05-23 16:50:[address] [facility] Respiratory rate 2020-05-23 16:50:00 16 /min [facility] [place] Oxygen saturation in Arterial blood by Pulse oximetry 2020-05-23 16:50:00 100 /min [facility] Body temperature 2020-05-23 16:50:[address] [facility] Respiratory rate 2020-05-23 16:50:00 16 /min [facility] [place] Oxygen saturation in Arterial blood by Pulse oximetry 2020-05-23 16:50:00 100 /min [facility] Procedures Procedure Date / Time Performed Performing Clinician Source POCT TEST 2021-01-02 21:14:00 Micha Das [facility] CONSENT FOR CONTRACEPTION 2021-01-02 05:01:00 Doctor Unassigned, [place] [facility] [place] CBC WITH DIFF 2020-11-27 09:42:00 Micha Das [facility] VENOUS CORD GAS 2020-11-27 03:17:00 Micha Das [facility] CENTRAL NEURAXIAL BLOCK 2020-11-27 01:30:40 Deanna Clark [facility] CBC WITH DIFF 2020-11-26 09:28:00 Fish, [facility] HEPATITIS B SURFACE ANTIGEN 2020-11-26 09:28:00 Fish, [facility] ADC OR DEBBY ONLY - RPR 2020-11-26 09:28:00 Fish, [facility] HIV 1/2 AG-AB WITH REFLEX 2020-11-26 09:28:00 Fish, [facility] HB ABO GROUPING 2020-11-26 09:25:00 Fish, [facility] RHO (D) IMMUNE GLOBULIN 2020-11-26 09:25:00 Fish, Silvino [facility] ASSIGNMENT OF BENEFITS 2020-11-22 16:16:05 Docto r Unassigned, [place] [facility] [place] NON-STRESS TEST 2020-11-19 22:03:33 Aishwarya Finch [facility] POCT URINALYSIS W/O SPECIFIC GRAVITY 2020-11-19 00:00:00 Kimi Finch [facility] [place] NON-STRESS TEST 2020-11-11 21:17:44 Thiago, [facility] POCT URINALYSIS W/O SPECIFIC GRAVITY 2020-11-11 20:19:00 Thiago, [facility] AMYLASE 2020-11-09 20:14:00 Asya Knox [facility] LIPASE 2020-11-09 20:14:00 Lc Asya [facility] COMP. METABOLIC PANEL (20244) 2020-11-09 20:14:00 Asya [facility] CBC WITH DIFF 2020-11-09 20:14:00 Asya Knox [facility] URINALYSIS 2020-11-09 20:14:00 Lc Asya [facility] ASSIGNMENT OF BENEFITS 2020-11-09 19:05:31 Docto r Unassigned, [place] [facility] CONSENT/REFUSAL FOR DIAGNOSIS AND TREATMENT 2020-11-09 19:04:50 Doctor Unassigned, [place] [facility] [place] L&D VISIT (NON-DELIVERED) 2020-11-09 05:01:00 Doctor Unassigned, [place] [facility] [place] US BIOPHYSICAL PROFILE 2020-11-07 00:40:58 Adum, Celena Grullon [facility] [place] COVID-19 (ID NOW RAPID TESTING) 2020-11-06 22:36:00 Adum, Celena Yadi [facility] [place] POCT URINALYSIS W/O SPECIFIC GRAVITY 2020-11-05 00:00:00 Micha Das [facility] [place] NOTICE OF PRIVACY PRACTICES 2020-10-29 21:04:29 Doctor Unassigned, [place] [facility] [place] CONSENT/REFUSAL FOR DIAGNOSIS AND TREATMENT 2020-10-29 21:04:15 Doctor Unassigned, [place] [facility] ASSIGNMENT OF BENEFITS 2020-10-29 21:04:01 Docto r Unassigned, [place] [facility] [place] L&D VISIT (NON-DELIVERED) 2020-10-29 05:01:00 Doctor Unassigned, [place] [facility] [place] ADC CLC OR LCC ONLY - WET PREP 2020-10-16 16:32:00 Micha Das [facility] [place] CONSENT/REFUSAL FOR DIAGNOSIS AND TREATMENT 2020-10-16 15:26:58 Doctor Unassigned, [place] [facility] [place] L&D VISIT (NON-DELIVERED) 2020-10-16 05:01:00 Doctor Unassigned, [place] [facility] [place] SECOND AND THIRD TRIMESTER ULTRASOUND 2020-09-18 16:19:00 Ute Guzman [facility] [place] GLUCOSE 1 HOUR POST PRANDIAL 2020-08-30 14:24:00 Micha Das [facility] CBC WITH DIFF 2020-08-30 14:24:00 Micha Das [facility] HIV 1/2 AG-AB WITH REFLEX 2020-08-30 14:24:00 Micha Das [facility] [place] EXTERNAL PROVIDER RECORDS 2020-08-22 05:01:00 Doctor Deja, [place] [facility] [place] AUTHORIZATION TO RELEASE PHI TO [facility] 2020-08-13 05:01:00 Doctor Unassigned, [place] [facility] [place] GLUCOSE 1 HOUR POST PRANDIAL 2020-07-09 14:09:00 Micha Das [facility] [place] ASSIGNMENT OF BENEFITS 2020-07-02 15:31:15 Docrayna r Unassigned, [place] [facility] [place] EXTERNAL PROVIDER RECORDS 2020-06-14 05:01:00 Doctor Unassigned, [place] [facility] URINALYSIS 2020-05-31 15:42:00 Jatin Mcgowan [facility] CONSENT/REFUSAL FOR DIAGNOSIS AND TREATMENT 2020-05-31 15:06:14 Doctor Unassigned, [place] [facility] [place] URINALYSIS 2020-05-23 17:57:00 Micha Das [facility] COVID-19 (ID NOW RAPID TESTING) 2020-05-23 17:44:00 Micha Das [facility] ASSIGNMENT OF BENEFITS 2020-05-23 16:01:14 Catracho ball Unassigned, [place] [facility] Encounters Start Date/Time End Date/Time Encounter Type Admission Type Attending [facility] Care Facility Care Department Encounter ID Source 2021-01-27 15:33:51 Outpatient P [facility] [id number] [facility] 2021-01-27 15:33:23 Emergency [facility] [id number] [facility] 2021-01-27 14:56:48 Outpatient P [facility] [id number] [facility] 2021-01-27 14:55:08 Outpatient P [facility] [id number] [facility] 2021-01-27 09:45:48 Outpatient P [facility] [id number] [facility] 2021-01-27 09:42:13 Outpatient [facility] [id number] [facility] 2021-01-27 09:41:51 Emergency [facility] [id number] [facility] 2021-01-26 03:27[id number] 2021-01-26 01:31:25 Outpatient P [facility] [id number] [facility] 2021-01-26 01:20:07 Outpatient P [facility] [id number] [facility] 2021-01-02 15:46:28 2021-01-02 16:31:58 Routine Visit Micha Das [facility] 1.840.114 350.1.13.10 4.2.7.2.686 [id number] [facility] 2021-01-02 16:00:00 2021-01-02 16:00:00 Outpatient R MICHA DAS [facility] [id number] [facility] 2021-01-02 00:00:00 2021-01-02 00:00:00 Orders Only Doctor Unassigned, [place] [facility] 1.2840.114 350.1.13.10 4.2.7.2.686 [id number] [facility] 2020-12-24 16:00:00 2020-12-24 16:00:00 Outpatient R MICHA DAS [facility] [id number] [facility] 2020-12-24 00:00:00 2020-12-24 00:00:[address] [facility] 1.840.114 350.1.13.10 4.2.7.2.686 [id number] [facility] 2020-11-26 03:43:00 2020-11-28 09:55:00 Hospital Encounter Micha Das [facility] 1.2840.114 350.1.13.10 4.2.7.2.686 [id number] [facility] 2020-11-26 20:00:00 2020-11-26 23:26:00 Anesthesia Event Marita Clark [facility] 1.2840.114 350.1.13.10 4.2.7.2.686 [id number] [facility] 2020-11-25 12:49:01 2020-11-25 13:04:01 Laboratory Only Only, Adc Test Micha Das [facility] 1.20.114 350.1.13.10 4.2.7.2.686 [id number] [facility] 2020-11-25 13:00:00 2020-11-25 13:00:00 Outpatient R [facility] [id number] [facility] 2020-11-22 00:00:00 2020-11-22 00:00:00 Orders Only Doctor Unassigned, [place] [facility] 1.2.114 350.1.13.10 4.2.7.2.686 [id number] [facility] 2020-11-19 16:19:20 2020-11-19 17:02:59 Routine Visit Kody Kimi [facility] 1.2.114 350.1.13.10 4.2.7.2.686 [id number] [facility] 2020-11-19 16:30:00 2020-11-19 16:30:00 [facility] [id number] 2020-11-18 15:15:00 2020-11-18 15:15:00 Outpatient R MICHA DAS [facility] [id number] [facility] 2020-11-13 15:00:00 2020-11-13 15:00:00 Outpatient P [facility] [id number] [facility] 2020-11-11 15:03:27 2020-11-11 16:13:19 Routine Visit Micha Das [facility] 1.2.114 350.1.13.10 4.2.7.2.686 [id number] [facility] 2020-11-11 15:15:00 2020-11-11 15:15:00 Outpatient R MICHA DAS [facility] [id number] Kathieандрей ojeda [facility] 2020-11-09 14:27:00 2020-11-09 15:55:00 Hospital Encounter Asya Knox [facility] 1.2.840.114 350.1.13.10 4.2.7.2.686 [id number] [facility] 2020-11-09 00:00:00 2020-11-09 00:00:00 Orders Only Doctor Unassigned, [place] [facility] 1.2.840.114 350.1.13.10 4.2.7.2.686 [id number] [facility] 2020-11-08 00:00:00 2020-11-08 00:00:00 Telephone Micha Das [facility] 1.2.840.114 350.1.13.10 4.2.7.2.686 [id number] [facility] 2020-11-07 00:00:00 2020-11-07 00:00:00 Telephone Celena Foley [facility] ED Professio [facility] 1.2.840.114 350.1.13.10 4.2.7.2.686 [id number] [facility] 2020-11-06 17:21:00 2020-11-06 23:49:00 Hospital Encounter AdCelena aelxander [facility] 1.2.840.114 350.1.13.10 4.2.7.2.686 [id number] [facility] 2020-11-06 00:00:00 2020-11-06 00:00:00 Nurse Triage Carol Garces [facility] 1.2.840.114 350.1.13.10 4.2.7.2.686 [id number] [facility] 2020-11-05 10:13:58 2020-11-05 10:28:58 Center Machine Operator Visit Pob, [facility] Main Micha Das [facility] 1.2840.114 350.1.13.10 4.2.7.2.686 [id number] [facility] 2020-11-05 08:07:29 2020-11-05 09:01:42 Routine Visit Micha Das [facility] 1.20.114 350.1.13.10 4.2.7.2.686 [id number] [facility] 2020-11-05 08:15:00 2020-11-05 08:15:00 Outpatient R MICHA DAS [facility] [id number] [facility] 2020-10-29 15:58:00 2020-10-29 17:20:00 Hospital Encounter Micha Das Vivian L [facility] 1.0.114 350.1.13.10 4.2.7.2.686 [id number] [facility] 2020-10-29 00:00:00 2020-10-29 00:00:00 Nurse Triage Art Duffy [facility] 1.2840.114 350.1.13.10 4.2.7.2.686 [id number] [facility] 2020-10-29 00:00:00 2020-10-29 00:00:00 Orders Only Doctor Unassigned, [place] [facility] 1.2840.114 350.1.13.10 4.2.7.2.686 [id number] [facility] 2020-10-21 13:00:00 2020-10-21 13:00:00 Outpatient R MICHA DAS [facility] [id number] [facility] 2020-10-16 10:35:00 2020-10-16 12:15:00 Hospital Encounter Celena Foley [facility] 1.84.114 350.1.13.10 4.2.7.2.686 [id number] [facility] 2020-10-16 10:45:00 2020-10-16 10:45:00 Outpatient P [facility] [id number] [facility] 2020-10-16 00:00:00 2020-10-16 00:00:00 Orders Only Doctor Unassigned, [place] [facility] 1.84.114 350.1.13.10 4.2.7.2.686 [id number] [facility] 2020-10-11 00:00:00 2020-10-11 00:00:00 Telephone Micha Das [facility] ED Professio [facility] 1.840.114 350.1.13.10 4.2.7.2.686 [id number] [facility] 2020-10-07 08:00:00 2020-10-07 08:00:00 Outpatient MICHA ALEMAN [facility] [id number] [facility] 2020-09-24 08:15:00 2020-09-24 08:15:00 Outpatient MICHA ALEMAN [facility] [id number] [facility] 2020-09-18 10:35:35 2020-09-18 11:56:35 Center Machine Operator Visit 2, [facility] 1.84.114 350.1.13.10 4.2.7.2.686 [id number] [facility] 2020-09-18 10:45:00 2020-09-18 10:45:00 Outpatient P [facility] [id number] [facility] 2020-09-10 08:15:00 2020-09-10 08:15:00 Outpatient MICHA ALEMAN [facility] [id number] [facility] 2020-08-30 07:50:42 2020-08-30 08:05:42 Center Machine Operator Visit Pob, Adc Lab Micha Staton [facility] 1..840.114 350.1.13.10 4.2.7.2.686 [id number] [facility] 2020-08-30 08:00:00 2020-08-30 08:00:00 Outpatient MICHA ALEMAN [facility] [id number] [facility] 2020-08-28 09:32:42 2020-08-28 11:39:27 Center Machine Operator Visit 2, [facility] 1..840.114 350.1.13.10 4.2.7.2.686 [id number] [facility] 2020-08-28 10:00:00 2020-08-28 10:00:00 Outpatient P [facility] [id number] [facility] 2020-08-27 11:15:00 2020-08-27 11:15:00 Outpatient MICHA ALEMAN [facility] [id number] [facility] 2020-08-22 00:00:00 2020-08-22 00:00:00 Orders Only Doctor Unassigned, [place] [facility] 1..840.114 350.1.13.10 4.2.7.2.686 [id number] [facility] 2020-08-13 08:15:00 2020-08-13 08:15:00 Outpatient MICHA ALEMAN [facility] [id number] [facility] 2020-08-13 00:00:00 2020-08-13 00:00:00 Orders Only Doctor Unassigned, [place] [facility] 1.2840.114 350.1.13.10 4.2.7.2.686 [id number] [facility] 2020-07-30 10:45:00 2020-07-30 10:45:00 Outpatient MICHA ALEMAN [facility] [id number] [facility] 2020-07-17 14:21:51 2020-07-17 16:37:44 Center Machine Operator Visit 2, [facility] 1.2840.114 350.1.13.10 4.2.7.2.686 [id number] [facility] 2020-07-17 14:21:51 2020-07-17 16:37:44 Center Machine Operator Visit 2, [facility] Room [facility] 1.2840.114 350.1.13.10 4.2.7.2.686 [id number] 2020-07-17 15:00:00 2020-07-17 15:00:00 Outpatient P [facility] [id number] [facility] 2020-07-17 00:00:00 2020-07-17 00:00:00 Letter (Out) Ute Guzman [facility] 1.2840.114 350.1.13.10 4.2.7.2.686 [id number] [facility] 2020-07-17 00:00:00 2020-07-17 00:00:00 Letter (Out) Ute Guzman [facility] 1.2840.114 350.1.13.10 4.2.7.2.686 [id number] 2020-07-16 08:00:00 2020-07-16 08:00:00 Outpatient MICHA ALEMAN [facility] [id number] [facility] 2020-07-15 09:27:01 2020-07-15 10:42:01 Center Machine Operator Visit Ultrasound, [facility] Nicko Anderson [facility] MINIBUS DRIVER [facility] MATERNAL & CHILD [facility] 1.2.840.114 350.1.13.10 4.2.7.2.686 [id number] [facility] 2020-07-15 09:27:01 2020-07-15 10:42:01 Center Machine Operator Visit Ultrasound, [facility] MINIBUS DRIVER [facility] & CHILD [facility] 1.2840.114 350.1.13.10 4.2.7.2.686 [id number] 2020-07-15 09:30:00 2020-07-15 09:30:00 Outpatient P [facility] [id number] [facility] 2020-07-09 07:44:23 2020-07-09 07:59:23 Center Machine Operator Visit Pob, [facility] Lab Main Micha Das [facility] 1.20.114 350.1.13.10 4.2.7.2.686 [id number] [facility] 2020-07-09 07:44:23 2020-07-09 07:59:23 Center Machine Operator Visit Pob, [facility] Lab Main [facility] 1.2840.114 350.1.13.10 4.2.7.2.686 [id number] 2020-07-09 07:45:00 2020-07-09 07:45:00 Outpatient R MICHA DAS [facility] [id number] [facility] 2020-07-02 10:36:39 2020-07-02 10:51:39 Center Machine Operator Visit Pob, [facility] Lab Main Micha Das [facility] Building 1.20.114 350.1.13.10 4.2.7.2.686 [id number] [facility] 2020-07-02 10:36:39 2020-07-02 10:51:39 Center Machine Operator Visit Pob, [facility] Lab Main [facility] 1.2.114 350.1.13.10 4.2.7.2.686 [id number] 2020-07-02 10:45:00 2020-07-02 10:45:00 Outpatient MICHA ALEMAN [facility] [id number] [facility] 2020-07-02 00:00:00 2020-07-02 00:00:00 Orders Only Doctor Unassigned, [place] [facility] 1.2.114 350.1.13.10 4.2.7.2.686 [id number] [facility] 2020-07-02 00:00:00 2020-07-02 00:00:00 Orders Only Doctor Unassigned, [place] [facility] 1.2.114 350.1.13.10 4.2.7.2.686 [id number] [id number] 2020-06-20 08:00:00 2020-06-20 08:00:00 Outpatient MICHA ALEMAN [facility] [id number] [facility] 2020-06-14 00:00:00 2020-06-14 00:00:00 Orders Only Doctor Unassigned, [place] [address].2.114 350.1.13.10 4.2.7.2.686 [id number] [id number] [facility] 2020-06-14 00:00:00 2020-06-14 00:00:00 Orders Only Doctor Unassigned, [place] [address].20.114 350.1.13.10 4.2.7.2.686 [id number] [id number] 2020-05-31 09:14:00 2020-05-31 10:39:00 Emergency Jatin Mcgowan [facility] 1.2.840.114 350.1.13.10 4.2.7.2.686 [id number] [facility] 2020-05-31 09:14:00 2020-05-31 10:39:00 Emergency Jatin Mcgowan [facility] 1.2.840.114 350.1.13.10 4.2.7.2.686 [id number] 2020-05-23 10:04:00 2020-05-23 18:15:00 Hospital Encounter Micha Das [facility] 1.2.840.114 350.1.13.10 4.2.7.2.686 [id number] 2020-05-23 10:04:00 2020-05-23 18:15:00 Hospital Encounter Micha Das [facility] 1.2.840.114 350.1.13.10 4.2.7.2.686 [id number] [facility] 2020-05-23 10:03:40 2020-05-23 10:18:40 Center Machine Operator Visit Tutu, [facility] Lab Main [facility] 1.2.840.114 350.1.13.10 4.2.7.2.686 [id number] 2020-05-23 10:03:40 2020-05-23 10:18:40 Center Machine Operator Visit [facility], [facility] Lab Main Micha Das [facility] 1.2.840.114 350.1.13.10 4.2.7.2.686 [id number] [facility] 2020-05-23 08:00:00 2020-05-23 08:00:00 Outpatient R MICHA DAS [facility] [id number] [facility] 2020-05-23 00:00:00 2020-05-23 00:00:00 Orders Only Doctor Unassigned, [place] [facility] 1.2.840.114 350.1.13.10 4.2.7.2.686 [id number] [facility] 2020-05-15 00:00:00 2020-05-15 00:00:00 Patient Secure Msg Doctor Unassigned, [place] [facility] 1.84.114 350.1.13.10 4.2.7.2.686 [id number] [facility] 2020-05-15 00:00:00 2020-05-15 00:00:00 Telephone Micha Das [facility] 1.84.114 350.1.13.10 4.2.7.2.686 [id number] [facility] 2020-05-09 10:00:00 2020-05-09 10:00:00 Outpatient R MICHA DAS [facility] [id number] [facility] 2020-05-02 08:30:00 2020-05-02 08:30:00 Outpatient R MICHA DAS [facility] [id number] [facility] 2020-04-25 13:00:00 2020-04-25 13:00:00 Outpatient R MICHA DAS [facility] [id number] [facility] Results Test Description Test Time Test Comments Results Result Co mments Source [facility] with [id number] 09:53:01* Test Item Value Reference Range Interpretation Comme nts WBC (test code = 6690-2) See_Comment H [Automated message] The system which generated this result transmitted reference range: 4.30 - 11.10 10*3/?L. The reference range was not used to interpret this result as normal/abnormal. RBC (test code = 789-8) See_Comment L [Automated message] The system which generated this result transmitted reference range: 3.93 - 5.25 10*6/?L. The reference range was not used to interpret this result as normal/abnormal. HGB (test code = 718-7) 10.1 g/dL 11.6-15.0 L HCT (test code = 4544-3) 30.3 % 35.7-45.2 L MCV (test code = 787-2) 86.8 fL 80.6-95.5 MCH (test code = 785-6) 28.9 pg 25.9-32.8 MCHC (test code = 786-4) 33.3 g/dL 31.6-35.1 RDW-SD (test code = 65470-6) 43.0 fL 39.0-49.9 RDW-CV (test code = 788-0) 13.9 % 12.0-15.5 PLT (test code = 777-3) See_Comment [Automated message] The system which generated this result transmitted reference range: 166 - 358 10*3/?L. The reference range was not used to interpret this result as normal/abnormal. MPV (test code = 17166-0) 10.4 fL 9.5-12.9 NRBC/100 WBC (test code = 3345274397) See_Comment [Automated message] The system which generated this result transmitted reference range: 0.0 - 10.0 /100 WBCs. The reference range was not used to interpret this result as normal/abnormal. NRBC x10^3 (test code = 0906096660) <0.01 See_Comment [Automated message] The system which generated this result transmitted reference range: 10*3/?L. The reference range was not used to interpret this result as normal/abnormal. GRAN MAT (NEUT) % (test code = 770-8) 85.0 % IMM GRAN % (test code = 5593445404) 0.50 % LYMPH % (test code = 736-9) 9.2 % MONO % (test code = 5905-5) 5.1 % EOS % (test code = 713-8) 0.0 % BASO % (test code = 706-2) 0.2 % GRAN MAT x10^3(ANC) (test code = 4576408860) 11.22 10*3/uL 1.88-7.09 H IMM GRAN x10^3 (test code = 4906599257) 0.07 10*3/uL 0.00-0.06 H LYMPH x10^3 (test code = 731-0) 1.21 10*3/uL 1.32-3.29 L MONO x10^3 (test code = 742-7) 0.67 10*3/uL 0.33-0.92 EOS x10^3 (test code = 711-2) <0.03 0.03-0.39 L BASO x10^3 (test code = 704-7) <0.03 0.01-0.07 Lab Interpretation (test code = 39357-7) Abnormal [facility] with Uanhtezqdzct3452-64-71 09:53:01* Test Item Value Reference Range Interpretation Comme nts WBC (test code = 6690-2) See_Comment H [Automated message] The system which generated this result transmitted reference range: 4.30 - 11.10 10*3/?L. The reference range was not used to interpret this result as normal/abnormal. RBC (test code = 789-8) See_Comment L [Automated message] The system which generated this result transmitted reference range: 3.93 - 5.25 10*6/?L. The reference range was not used to interpret this result as normal/abnormal. HGB (test code = 718-7) 10.1 g/dL 11.6-15.0 L HCT (test code = 4544-3) 30.3 % 35.7-45.2 L MCV (test code = 787-2) 86.8 fL 80.6-95.5 MCH (test code = 785-6) 28.9 pg 25.9-32.8 MCHC (test code = 786-4) 33.3 g/dL 31.6-35.1 RDW-SD (test code = 72965-8) 43.0 fL 39.0-49.9 RDW-CV (test code = 788-0) 13.9 % 12.0-15.5 PLT (test code = 777-3) See_Comment [Automated message] The system which generated this result transmitted reference range: 166 - 358 10*3/?L. The reference range was not used to interpret this result as normal/abnormal. MPV (test code = 39275-3) 10.4 fL 9.5-12.9 NRBC/100 WBC (test code = 2999633256) See_Comment [Automated message] The system which generated this result transmitted reference range: 0.0 - 10.0 /100 WBCs. The reference range was not used to interpret this result as normal/abnormal. NRBC x10^3 (test code = 8631206708) <0.01 See_Comment [Automated message] The system which generated this result transmitted reference range: 10*3/?L. The reference range was not used to interpret this result as normal/abnormal. GRAN MAT (NEUT) % (test code = 770-8) 85.0 % IMM GRAN % (test code = 9604895251) 0.50 % LYMPH % (test code = 736-9) 9.2 % MONO % (test code = 5905-5) 5.1 % EOS % (test code = 713-8) 0.0 % BASO % (test code = 706-2) 0.2 % GRAN MAT x10^3(ANC) (test code = 6888604504) 11.22 10*3/uL 1.88-7.09 H IMM GRAN x10^3 (test code = 5678533752) 0.07 10*3/uL 0.00-0.06 H LYMPH x10^3 (test code = 731-0) 1.21 10*3/uL 1.32-3.29 L MONO x10^3 (test code = 742-7) 0.67 10*3/uL 0.33-0.92 EOS x10^3 (test code = 711-2) <0.03 0.03-0.39 L BASO x10^3 (test code = 704-7) <0.03 0.01-0.07 Lab Interpretation (test code = 14846-4) Abnormal [facility] OR DEBBY ONLY - [id number] 08:23:58* Test Item Value Reference Range Interpretation Comme nts RPR (Qualitative) (test code = 21236-6) Nonreactive Nonreactive Lab Interpretation (test cod e = 43881-7) Normal [facility] OR DEBBY ONLY - [id number] 08:23:58* Test Item Value Reference Range Interpretation Comme nts RPR (Qualitative) (test code = 26733-3) Nonreactive Nonreactive Lab Interpretation (test cod e = 82219-1) Normal [facility] (D) IMMUNE [id number] 03:37:21* Test Item Value Reference Range Interpretation Comme nts RHIG CANDIDATE? (test code = 5055) No- see comment Patient is not a candidate for RhIg- Patient is Rh Positive.Performed at [facility] Laboratory Services [facility] Blood [address] [place] [address] Free: [phone] No. [id number] [facility] (D) IMMUNE [id number] 03:37:21* Test Item Value Reference Range Interpretation Comme [facility] RHIG CANDIDATE? (test code = 5055) No- see comment Patient is not a candidate for RhIg- Patient is Rh Positive.Performed at [facility] Laboratory [facility] Blood [address] Free: [phone] No. [id number] [facility] CORD [id number] 03:29:14* Test Item Value Reference Range Interpretation Comme nts VENOUS BASE EXCESS, CORD (test code = 2226270499) mEq/L VENOUS PH, CORD (test code = 2845177806) 7.25-7.45 VENOUS PC02, CORD (test code = 2766164692) See_Comment [Automated messa ge] The system which generated this result transmitted reference range: 27 - 49 mmHg. The reference range was not used to interpret this result as normal/abnormal. VENOUS PO2, CORD (test code = 6982912520) See_Comment [Automated me ssage] The system which generated this result transmitted reference range: 17 - 41 mmHg. The reference range was not used to interpret this result as normal/abnormal. VENOUS BICARBONATE, CORD (test code = 3212452493) See_Comment [Automated messa ge] The system which generated this result transmitted reference range: 12 - 29 mEq/L. The reference range was not used to interpret this result as normal/abnormal. [facility] CORD [id number] 03:29:14* Test Item Value Reference Range Interpretation Comme nts VENOUS BASE EXCESS, CORD (test code = 5716091744) mEq/L VENOUS PH, CORD (test code = 6961818674) 7.25-7.45 VENOUS PC02, CORD (test code = 8754196015) See_Comment [Automated messa ge] The system which generated this result transmitted reference range: 27 - 49 mmHg. The reference range was not used to interpret this result as normal/abnormal. VENOUS PO2, CORD (test code = 4972169053) See_Comment [Automated me ssage] The system which generated this result transmitted reference range: 17 - 41 mmHg. The reference range was not used to interpret this result as normal/abnormal. VENOUS BICARBONATE, CORD (test code = 8391650742) See_Comment [Automated messa ge] The system which generated this result transmitted reference range: 12 - 29 mEq/L. The reference range was not used to interpret this result as normal/abnormal. [facility] Dpehv0147-51-00 01:30:40 Marita Clark MD ? ? 11/26/2020 ?8:33 PM Central Neuraxial Block Performed by: Marita Clark MDAuthorized by: Marita Clark MD Patient Location: OBStart Time: 11/26/2020 8:00 PMEnd Time: 11/26/2020 8:30 PMReason for Block: OB request, Patient request and Labor analgesiaStaff: ?Anesthesiologist: Marita Clark MD ?Performed by: anesthesiologistPreanesthetic Checklist: patient identified, ri sks and benefits explained, monitors and equipment checked, timeout performed, anesthesia consent and pre-op evaluationProcedure: ?Type of Neuraxial: Continuous and Epidural ?Patient Position: sitting ?Prep: Betadine ? ?Monitoring: heart rate, continuous pulse ox, heart rate / toco and NIBP ?Location: lumbar (1-5) ?Lumbar: L3-L4 ?Approach: midline ? ?Technique: MOI airEpidural/Spinal Thayer and/or Catheter: ?Epidural/Spinal Kit: nuevoStage (BD) ?Needle Type: Tuohy ?Needle Gauge: 17G ?Needle Length: 3.5 in (8.89 cm) ?Needle Insertion Depth: 7 ?Catheter Type: multiport ? ?CatheterSize: 19 G ? ?Catheter at Skin Depth: 12 ?Number of Attempts: 2 ?Test Dose: lidocaine 1.5% with epinephrine 1-to-200,000 and negative ? ?Dose: 5 cc ? ?Catheter Securement Method: liquid medical adhesive, surgical tape, Tegaderm and clear occlusive dressingAssessment: ?Sensory Level: below T10 ?Block Outcome: pain improved ? ?Procedure Assessment: patient tolerated procedure well with no complicationsUnSeymour HospitalCentral Neuraxial Plqca7543-41-95 01:30:40Marita Clark MD ? ? 11/26/2020 ?8:33 PM Central Neuraxial Block Performed by: Marita Clark MDAuthorized by: Marita Clark MD Patient Location: OBStart Time: 11/26/2020 8:00 PMEnd Time: 11/26/2020 8:30 PMReason for Block: OB request, Patient request and Labor analgesiaStaff: ?Anesthesiologist: Marita Clark MD ?Performed by: anesthesiologistPreanesthetic Checklist: patient identified, risks and benefits explained, monitors and equipment checked, timeout performed, anesthesia consent and pre-op evaluationProcedure: ?Type of Neuraxial: Continuous and Epidural ?Patient Position: sitting ?Prep: Betadine ? ?Monitoring: heart rate, continuous pulse ox, heart rate / toco and NIBP ?Location: lumbar (1-5) ?Lumbar: L3-L4 ?Approach: midline ? ?Technique: MOI airEpidural/Spinal Thayer and/or Catheter: ?Epidural/Spinal Kit: nuevoStage (mechatronic systemtechnik) ?Needle Type: Tuohy ?Needle Gauge: 17G ?Needle Length: 3.5 in (8.89 cm) ?Needle Insertion Depth: 7 ?Catheter Type: multiport ? ?CatheterSize: 19 G ? ?Catheter at Skin Depth: 12 ?Number of Attempts: 2 ?Test Dose: lidocaine 1.5% with epinephrine 1-to-200,000 and negative ? ?Dose: 5 cc ? ?Catheter Securement Method: liquid medical adhesive, surgical tape, Tegaderm and clear occlusive dressingAssessment: ?Sensory Level: below T10 ?Block Outcome: pain improved ? ?Procedure Assessment: patient tolerated procedure well with no complicationsUnSeymour HospitalHepatitis B Surface Antigen 2020-11-26 15:24:40* Test Item Value Reference Range Interpretation Comme nts HBsAg Semi-Quantitative (nia t code = 5195-3) Negative Negative [facility] Surface [id number] 15:24:40 * Test Item Value Reference Range Interpretation Comme nts HBsAg Semi-Quantitative (nia t code = 5195-3) Negative Negative [facility] and Screen - ONCE [id number] 11:54:25 * Test Item Value Reference Range Interpretation Comme nts ABO & RH (test code = 20) A Positive Performed at [facility] Laboratory [facility] Blood [place] [address]Toll Free: [phone] No. [id number] IAT (test code = 1185) Negative Performed at [facility] Blood [place] [address]Toll Free: [phone] No. [id number] [facility] and Screen - ONCE [id number] 11:54:25 * Test Item Value Reference Range Interpretation Comme nts ABO & RH (test code = 20) A Positive Performed at [facility] Blood [place] [address]Toll Free: [phone] No. [id number] IAT (test code = 1185) Negative Performed at [facility] Blood [place] [address]Toll Free: [phone] No. [id number] [facility]/2 AG-AB WITH [id number] 11:22:19* Test Item Value Reference Range Interpretation Comme nts HIV Semi-quantitative (test code = 71160-1) Negative Negative YOSHI (test code = YOSHI) Non-reactive for HIV-1 antigen and HIV-1/HIV-2 antibodies. ?No laboratory evidence of HIV infection. ?Repeat in 2-4 weeks if acute HIV infection is suspected. [facility] WITH [id number] 11:22:19* Test Item Value Reference Range Interpretation Comme nts HIV Semi-quantitative (test code = 71488-1) Negative Negative YOSHI (test code = YOSHI) Non-reactive for HIV-1 antigen and HIV-1/HIV-2 antibodies. ?No laboratory evidence of HIV infection. ?Repeat in 2-4 weeks if acute HIV infection is suspected. [facility] with Wirerynamxqx2587-44-04 09:55:09* Test Item Value Reference Range Interpretation Comme nts WBC (test code = 6690-2) See_Comment [Automated messa ge] The system which generated this result transmitted reference range: 4.30 - 11.10 10*3/?L. The reference range was not used to interpret this result as normal/abnormal. RBC (test code = 789-8) See_Comment L [Automated messa ge] The system which generated this result transmitted reference range: 3.93 - 5.25 10*6/?L. The reference range was not used to interpret this result as normal/abnormal. HGB (test code = 718-7) 11.0 g/dL 11.6-15.0 L HCT (test code = 4544-3) 33.1 % 35.7-45.2 L MCV (test code = 787-2) 86.4 fL 80.6-95.5 MCH (test code = 785-6) 28.7 pg 25.9-32.8 MCHC (test code = 786-4) 33.2 g/dL 31.6-35.1 RDW-SD (test code = 79850-2) 43.3 fL 39.0-49.9 RDW-CV (test code = 788-0) 14.0 % 12.0-15.5 PLT (test code = 777-3) See_Comment [Automated messa ge] The system which generated this result transmitted reference range: 166 - 358 10*3/?L. The reference range was not used to interpret this result as normal/abnormal. MPV (test code = 46913-2) 10.5 fL 9.5-12.9 NRBC/100 WBC (test code = 2487716145) See_Comment [Automated me ssage] The system which generated this result transmitted reference range: 0.0 - 10.0 /100 WBCs. The reference range was not used to interpret this result as normal/abnormal. NRBC x10^3 (test code = 4192052466) <0.01 See_Comment [Automated messa ge] The system which generated this result transmitted reference range: 10*3/?L. The reference range was not used to interpret this result as normal/abnormal. GRAN MAT (NEUT) % (test code = 770-8) 66.2 % IMM GRAN % (test code = 9130082006) 0.80 % LYMPH % (test code = 736-9) 25.4 % MONO % (test code = 5905-5) 6.0 % EOS % (test code = 713-8) 1.3 % BASO % (test code = 706-2) 0.3 % GRAN MAT x10^3(ANC) (test code = 8865459959) 6.14 10*3/uL 1.88-7.09 IMM GRAN x10^3 (test code = 8647335162) 0.07 10*3/uL 0.00-0.06 H LYMPH x10^3 (test code = 731-0) 2.35 10*3/uL 1.32-3.29 MONO x10^3 (test code = 742-7) 0.56 10*3/uL 0.33-0.92 EOS x10^3 (test code = 711-2) 0.12 10*3/uL 0.03-0.39 BASO x10^3 (test code = 704-7) 0.03 10*3/uL 0.01-0.07 Lab Interpretation (test code = 67808-3) Abnormal [facility] with Gwucekvmepba9776-17-26 09:55:09* Test Item Value Reference Range Interpretation Comme nts WBC (test code = 6690-2) See_Comment [Automated messa ge] The system which generated this result transmitted reference range: 4.30 - 11.10 10*3/?L. The reference range was not used to interpret this result as normal/abnormal. RBC (test code = 789-8) See_Comment L [Automated messa ge] The system which generated this result transmitted reference range: 3.93 - 5.25 10*6/?L. The reference range was not used to interpret this result as normal/abnormal. HGB (test code = 718-7) 11.0 g/dL 11.6-15.0 L HCT (test code = 4544-3) 33.1 % 35.7-45.2 L MCV (test code = 787-2) 86.4 fL 80.6-95.5 MCH (test code = 785-6) 28.7 pg 25.9-32.8 MCHC (test code = 786-4) 33.2 g/dL 31.6-35.1 RDW-SD (test code = 86033-0) 43.3 fL 39.0-49.9 RDW-CV (test code = 788-0) 14.0 % 12.0-15.5 PLT (test code = 777-3) See_Comment [Automated messa ge] The system which generated this result transmitted reference range: 166 - 358 10*3/?L. The reference range was not used to interpret this result as normal/abnormal. MPV (test code = 09195-7) 10.5 fL 9.5-12.9 NRBC/100 WBC (test code = 9944982636) See_Comment [Automated TrueAccord ssage] The system which generated this result transmitted reference range: 0.0 - 10.0 /100 WBCs. The reference range was not used to interpret this result as normal/abnormal. NRBC x10^3 (test code = 5186113886) <0.01 See_Comment [Automated messa ge] The system which generated this result transmitted reference range: 10*3/?L. The reference range was not used to interpret this result as normal/abnormal. GRAN MAT (NEUT) % (test code = 770-8) 66.2 % IMM GRAN % (test code = 7058282617) 0.80 % LYMPH % (test code = 736-9) 25.4 % MONO % (test code = 5905-5) 6.0 % EOS % (test code = 713-8) 1.3 % BASO % (test code = 706-2) 0.3 % GRAN MAT x10^3(ANC) (test code = 6313872061) 6.14 10*3/uL 1.88-7.09 IMM GRAN x10^3 (test code = 7206221995) 0.07 10*3/uL 0.00-0.06 H LYMPH x10^3 (test code = 731-0) 2.35 10*3/uL 1.32-3.29 MONO x10^3 (test code = 742-7) 0.56 10*3/uL 0.33-0.92 EOS x10^3 (test code = 711-2) 0.12 10*3/uL 0.03-0.39 BASO x10^3 (test code = 704-7) 0.03 10*3/uL 0.01-0.07 Lab Interpretation (test code = 39550-3) Abnormal [facility] URINALYSIS W/O SPECIFIC [id number] 22:07:00* Test Item Value Reference Range Interpretation Comme nts POCT PH U (test code = 3254) n/a 5-8 POCT U LEUK EST (test code = 3263) n/a Negative - N egative POCT U NIT (test code = 3262) n/a Negative - Negati ve POCT U PROT (test code = 3259) neg Negative - Negat jose manuel POCT U GLU (test code = 3256) neg Negative - Negati ve POCT U KETONE (test code = 3258) n/a Negative - Neg ative POCT U BLD (test code = 3257) n/a Negative - Negati ve [facility] URINALYSIS W/O SPECIFIC [id number] 22:07:00* Test Item Value Reference Range Interpretation Comme nts POCT PH U (test code = 3254) n/a 5-8 POCT U LEUK EST (test code = 3263) n/a Negative - N egative POCT U NIT (test code = 3262) n/a Negative - Negati ve POCT U PROT (test code = 3259) neg Negative - Negat jose manuel POCT U GLU (test code = 3256) neg Negative - Negati ve POCT U KETONE (test code = 3258) n/a Negative - Neg ative POCT U BLD (test code = 3257) n/a Negative - Negati ve [facility] URINALYSIS W/O SPECIFIC [id number] 22:07:00* Test Item Value Reference Range Interpretation Comme nts POCT PH U (test code = 3254) n/a 5-8 POCT U LEUK EST (test code = 3263) n/a Negative - N egative POCT U NIT (test code = 3262) n/a Negative - Negati ve POCT U PROT (test code = 3259) neg Negative - Negat jose manuel POCT U GLU (test code = 3256) neg Negative - Negati ve POCT U KETONE (test code = 3258) n/a Negative - Neg ative POCT U BLD (test code = 3257) n/a Negative - Negati ve [facility] [id number] 22:04:06N[facility] REACT[facility] REASSURINGUnSeym[facility] HospitalFETAL NON-STRESS TEST 2020-11-19 22:04:06[facility]Un[facility] NON-STRESS [id number] 22:04:06NST REACTIVE AND REASSURINGUnSeymour HospitalFETAL NON-STRESS [id number] 21:19:02Time [id number]. NST is reactive and reassuring. Baseline 135, moderate variability, +accelerations, no decelerations. [place] is irritable.[facility] W/O SPECIFIC [id number] 20:20:00* Test Item Value Reference Range Interpretation Comme nts POCT PH U (test code = 3254) n/A 5-8 POCT U LEUK EST (test code = 3263) n/A Negative - Negative POCT U NIT (test code = 3262) n/A Negative - Negati ve POCT U PROT (test code = 3259) Negative Negative - Negat jose manuel POCT U GLU (test code = 3256) Negative Negative - Negati ve POCT U KETONE (test code = 3258) n/A Negative - Neg ative POCT U BLD (test code = 3257) n/A Negative - Negati ve Lab Interpretation (test cod e = 67872-2) Normal [facility]enton[facility]. METABOLIC PANEL ([id number])2020-11-09 20:32:39* Test Item Value Reference Range Interpretation Comme nts NA (test code = 9984484830) 135 mmol/L 135-145 K (test code = 5640961751) 3.7 mmol/L 3.5-5.0 CL (test code = 4650538092) 104 mmol/L 98-108 CO2 TOTAL (test code = 1520667234) 25 mmol/L 23-31 AGAP (test code = 6634818082) 2-16 BUN (test code = 8907805431) 4 mg/dL 7-23 L GLUCOSE (test code = 5011758765) 99 mg/dL 70-110 CREATININE (test code = 1812280935) 0.48 mg/dL 0.50-1.04 L TOTAL BILI (test code = 5149758187) 0.3 mg/dL 0.1-1.1 CALCIUM (test code = 9789638028) 9.2 mg/dL 8.6-10.6 T PROTEIN (test code = 4952151962) 7.0 g/dL 6.3-8.2 ALBUMIN (test code = 9901198787) 3.5 g/dL 3.5-5.0 ALK PHOS (test code = 5201301101) 87 U/L 34-122 ALTv (test code = 1742-6) 12 U/L 5-35 AST(SGOT) (test code = 0370400653) 16 U/L 13-40 eGFR (test code = 9575415394) mL/min/1.73m2 YOSHI (test code = YOSHI) Association of Glomerular Filtration Rate (GFR) and Staging of Kidney Disease* + --+ --+ ------+| GFR (mL/min/1.73 m2) ?| With Kidney Damage ?| ?Without Kidney Damage+ --------+ --------+ +| ?>90 ?| ?Stage one ?| ? Normal ?+ ---+ ---+ -------+| ?60-89 ?| ?Stage two ?| ? Decreased GFR ? + --+ --+ ------+| ?30-59 ?| ?Stage three ?| ? Stage three ? + --+ --+ ------+| ?15-29 ?| ?Stage four ? | ? Stage four ?+ ---+ ---+ -------+| ?<15 (or dialysis) ? ?| ?Stage five ? | ? Stage five ?+ ---+ ---+ -------+ *Each stage assumes the associated GFR level has been in effect for at least three months. ?Stages 1 to 5, with or without kidney disease, indicate chronic kidney disease. Notes: Determination of stages one and two (with eGFR >59mL/min/1.73 m2) requires estimation of kidney damage for at least three months as defined by structural or functional abnormalities of the kidney, manifested by either:Pathological abnormalities or Markers of kidney damage (including abnormalities in the composition of the blood or urine or abnormalities in imaging tests). Lab Interpretation (test code = 09370-0) Abnormal [facility]enton[facility]IPASE2021-08-14 20:32:34* Test Item Value Reference Range Interpretation Comme nts LIPASE (test code = 6983398050) 31 U/L 0-220 Lab Interpretation (test cod e = 50581-2) Normal [facility]entonAMYLASE2021-08-14 20:31:49* Test Item Value Reference Range Interpretation Comme nts JUN (test code = 1122143209) 48 U/L 35-110 Lab Interpretation (test cod e = 99736-0) Normal [facility]enton[facility]INALYSIS2021-08-14 20:31:14* Test Item Value Reference Range Interpretation Comme nts APPEARANCE (test code = 7682215112) Clear Clear COLOR (test code = 7178937704) Straw Yellow A PH (test code = 3064193710) 4.8-8.0 SP GRAVITY (test code = 7483259021) 1.003-1.030 L GLU U QUAL (test code = 1859457248) Normal Normal BLOOD (test code = 9464340525) Negative Negative KETONES (test code = 0864863634) Negative Negative PROTEIN (test code = 2887-8) Negative Negative UROBILIN (test code = 2620865824) Normal Normal BILIRUBIN (test code = 0937824627) Negative Negative NITRITE (test code = 4202133710) Negative Negative LEUK DENNY (test code = 8057595320) 25/uL Negative A RBC/HPF (test code = 1781300743) <1 See_Comment [Automated Exit41a ge] The system which generated this result transmitted reference range: 0 - 3 HPF. The reference range was not used to interpret this result as normal/abnormal. WBC/HPF (test code = 8441598313) See_Comment [Automated messa ge] The system which generated this result transmitted reference range: 0 - 5 HPF. The reference range was not used to interpret this result as normal/abnormal. BACTERIA (test code = 5670073270) Negative Negative SQ EPITH (test code = 8709900925) HPF Lab Interpretation (test code = 48582-1) Abnormal [facility] WITH [id number] 20:21:10* Test Item Value Reference Range Interpretation Comme nts WBC (test code = 6690-2) See_Comment [Automated messa ge] The system which generated this result transmitted reference range: 4.30 - 11.10 10*3/?L. The reference range was not used to interpret this result as normal/abnormal. RBC (test code = 789-8) See_Comment L [Automated messa ge] The system which generated this result transmitted reference range: 3.93 - 5.25 10*6/?L. The reference range was not used to interpret this result as normal/abnormal. HGB (test code = 718-7) 10.3 g/dL 11.6-15.0 L HCT (test code = 4544-3) 31.1 % 35.7-45.2 L MCV (test code = 787-2) 86.4 fL 80.6-95.5 MCH (test code = 785-6) 28.6 pg 25.9-32.8 MCHC (test code = 786-4) 33.1 g/dL 31.6-35.1 RDW-SD (test code = 47289-0) 43.0 fL 39.0-49.9 RDW-CV (test code = 788-0) 13.9 % 12.0-15.5 PLT (test code = 777-3) See_Comment [Automated messa ge] The system which generated this result transmitted reference range: 166 - 358 10*3/?L. The reference range was not used to interpret this result as normal/abnormal. MPV (test code = 33226-8) 10.2 fL 9.5-12.9 NRBC/100 WBC (test code = 4756622518) See_Comment [Automated me ssage] The system which generated this result transmitted reference range: 0.0 - 10.0 /100 WBCs. The reference range was not used to interpret this result as normal/abnormal. NRBC x10^3 (test code = 8605546384) <0.01 See_Comment [Automated messa ge] The system which generated this result transmitted reference range: 10*3/?L. The reference range was not used to interpret this result as normal/abnormal. GRAN MAT (NEUT) % (test code = 770-8) 73.8 % IMM GRAN % (test code = 2926662958) 0.50 % LYMPH % (test code = 736-9) 18.1 % MONO % (test code = 5905-5) 6.0 % EOS % (test code = 713-8) 1.2 % BASO % (test code = 706-2) 0.4 % GRAN MAT x10^3(ANC) (test code = 3357699966) 6.18 10*3/uL 1.88-7.09 IMM GRAN x10^3 (test code = 8597393440) 0.04 10*3/uL 0.00-0.06 LYMPH x10^3 (test code = 731-0) 1.51 10*3/uL 1.32-3.29 MONO x10^3 (test code = 742-7) 0.50 10*3/uL 0.33-0.92 EOS x10^3 (test code = 711-2) 0.10 10*3/uL 0.03-0.39 BASO x10^3 (test code = 704-7) 0.03 10*3/uL 0.01-0.07 Lab Interpretation (test code = 94943-1) Abnormal [facility] BIOPHYSICAL [id number] 01:05:07BPP of 11/03. heart rate measures 127 bpm. RL: 111 EXAMINATION:US BIOPHYSICAL PROFILE ORDERING PHYSICIAN: CELENA FOLEY CLINICAL HISTORY: complains of no movement ; COMPARISON:None available TECHNIQUE:Limited sonographic images of the pelvis obtained for biophysical profile. FINDINGS: heart rate measures 127 bpm.Amniotic fluid index yhwpjfdd59.5 cm. Bellmaker notes adequate breathing motion, movement andtone. BPP is 8/8. [facility], Radiant Results Inft User - 11/06/2020 8:06 PM CDT EXAMINATION:US BIOPHYSICAL PROFILEORDERING PHYSICIAN: CELENA FOLEYCLINICAL HISTORY: complains of no movement ;COMPARISON:None availableTECHNIQUE:Limited sonographic images of the pelvis obtained for biophysical profile.FINDINGS: heart rate measures 127 bpm. Amniotic fluid index juvwcfom42.5 cm. Bellmaker notes adequate breathing motion, movement andtone. BPP is 8/8.IMPRESSIONBPP of 8/8. heart rate measures 127 bpm.RL: 111 UnSeymour HospitalCOVID-19 (ID NOW RAPID TESTING)2020-11-06 23:08:15* Test Item Value Reference Range Interpretation Comme nts SARS-CoV-2 Rapid ID NOW (test code = 87577-4) Not Detected Not Detected YOSHI (test code = YOSHI) ID NOW COVID-19 As say is an isothermal nucleic acid amplification test intended for the qualitative detection of nucleic acid from SARS-CoV-2 viral RNA in nasopharyngeal ([employer]) specimens. It is used under Emergency Use Authorization (EUA) by FDA. The limit of detection (LOD) of the assay is 125 Genome Equivalents/mL. A positive result is indicative of the presence of SARS-CoV-2 RNA. ?Clinical correlation with patient history and other diagnostic information is necessary to determine patient infection status. A negative (Not Detected) result does not preclude SARS-CoV-2 infection. In patients with clinical symptoms and other tests that are consistent with SARS-CoV-2 infection, negative results should be treated as presumptive negative and a new specimen should be tested with alternative PCR molecular test. Invalid: Please collect a new specimen for repeat patient testing if clinically indicated. Lab Interpretation (test code = 98538-1) Normal [facility] URINALYSIS W/O SPECIFIC [id number] 13:41:00* Test Item Value Reference Range Interpretation Comme nts POCT PH U (test code = 3254) n.a 5-8 POCT U LEUK EST (test code = 3263) n/a Negative - Negative POCT U NIT (test code = 3262) n/a Negative - Negati ve POCT U PROT (test code = 3259) negative Negative - Negat jose manuel POCT U GLU (test code = 3256) negative Negative - Negati ve POCT U KETONE (test code = 3258) n/a Negative - Neg ative POCT U BLD (test code = 3257) n/a Negative - Negati ve [facility]enton[facility] OR [facility] ONLY - WET [id number] 16:58:15* Test Item Value Reference Range Interpretation Comme nts CLUE CELLS WET PREP (test co de = 2490949519) None Seen None Seen HPF BACTERIA WET PREP (test code = 3533474675) Few None Seen HPF A TRICHOMONAS WET PREP (test c ode = 7677435511) None Seen None Seen HPF YEAST WET PREP (test code = 4469592934) None Seen None Seen HPF Lab Interpretation (test cod e = 49964-5) Abnormal [facility]entonHIV 1/2 AG-AB WITH [id number] 16:12:59* Test Item Value Reference Range Interpretation Comme nts HIV Semi-quantitative (test code = 25935-6) Negative Negative YOSHI (test code = YOSHI) Non-reactive for HIV-1 antigen and HIV-1/HIV-2 antibodies. ?No laboratory evidence of HIV infection. ?Repeat in 2-4 weeks if acute HIV infection is suspected. [facility]entonGLUCOSE 1 HOUR POST [id number] 15:39:59* Test Item Value Reference Range Interpretation Comme nts GLUC 1 HR (test code = 4142155623) 90 mg/dL 120-170 L Lab Interpretation (test cod e = 04981-9) Abnormal [facility] WITH [id number] 14:32:07* Test Item Value Reference Range Interpretation Comme nts WBC (test code = 6690-2) See_Comment [Automated messa ge] The system which generated this result transmitted reference range: 4.30 - 11.10 10*3/?L. The reference range was not used to interpret this result as normal/abnormal. RBC (test code = 789-8) See_Comment L [Automated messa ge] The system which generated this result transmitted reference range: 3.93 - 5.25 10*6/?L. The reference range was not used to interpret this result as normal/abnormal. HGB (test code = 718-7) 11.0 g/dL 11.6-15.0 L HCT (test code = 4544-3) 33.4 % 35.7-45.2 L MCV (test code = 787-2) 86.5 fL 80.6-95.5 MCH (test code = 785-6) 28.5 pg 25.9-32.8 MCHC (test code = 786-4) 32.9 g/dL 31.6-35.1 RDW-SD (test code = 93648-5) 40.9 fL 39.0-49.9 RDW-CV (test code = 788-0) 13.1 % 12.0-15.5 PLT (test code = 777-3) See_Comment [Automated Exit41a ge] The system which generated this result transmitted reference range: 166 - 358 10*3/?L. The reference range was not used to interpret this result as normal/abnormal. MPV (test code = 57231-8) 9.9 fL 9.5-12.9 NRBC/100 WBC (test code = 1138047931) See_Comment [Automated [employer] ssage] The system which generated this result transmitted reference range: 0.0 - 10.0 /100 WBCs. The reference range was not used to interpret this result as normal/abnormal. NRBC x10^3 (test code = 7899616581) <0.01 See_Comment [Automated Exit41a ge] The system which generated this result transmitted reference range: 10*3/?L. The reference range was not used to interpret this result as normal/abnormal. GRAN MAT (NEUT) % (test code = 770-8) 69.8 % IMM GRAN % (test code = 8322412940) 0.40 % LYMPH % (test code = 736-9) 22.6 % MONO % (test code = 5905-5) 5.6 % EOS % (test code = 713-8) 1.3 % BASO % (test code = 706-2) 0.3 % GRAN MAT x10^3(ANC) (test code = 5350690592) 6.34 10*3/uL 1.88-7.09 IMM GRAN x10^3 (test code = 5121740392) 0.04 10*3/uL 0.00-0.06 LYMPH x10^3 (test code = 731-0) 2.05 10*3/uL 1.32-3.29 MONO x10^3 (test code = 742-7) 0.51 10*3/uL 0.33-0.92 EOS x10^3 (test code = 711-2) 0.12 10*3/uL 0.03-0.39 BASO x10^3 (test code = 704-7) 0.03 10*3/uL 0.01-0.07 Lab Interpretation (test code = 27072-2) Abnormal [facility] HOUR POST [id number] 15:10:55* Test Item Value Reference Range Interpretation Comme nts GLUC 1 HR (test code = 9956270674) 121 mg/dL 120-170 Lab Interpretation (test cod e = 44486-8) Normal [facility]enton[facility]INALYSIS2021-03-05 16:09:00* Test Item Value Reference Range Interpretation Comme nts APPEARANCE (test code = 2679991115) Hazy Clear A COLOR (test code = 4334983653) Yellow Yellow PH (test code = 3697095716) 4.8-8.0 SP GRAVITY (test code = 7981157427) 1.003-1.030 GLU U QUAL (test code = 9882959257) Normal Normal BLOOD (test code = 8009470794) Negative Negative KETONES (test code = 4108108444) Negative Negative PROTEIN (test code = 2887-8) Negative Negative UROBILIN (test code = 5430266267) Normal Normal BILIRUBIN (test code = 5981559172) Negative Negative NITRITE (test code = 2355041207) Negative Negative LEUK DENNY (test code = 7979842258) Negative Negative RBC/HPF (test code = 0435398815) <1 See_Comment [Automated Exit41a ge] The system which generated this result transmitted reference range: 0 - 3 HPF. The reference range was not used to interpret this result as normal/abnormal. WBC/HPF (test code = 6883184577) See_Comment [Automated Exit41a ge] The system which generated this result transmitted reference range: 0 - 5 HPF. The reference range was not used to interpret this result as normal/abnormal. BACTERIA (test code = 7670131199) Negative Negative MUCOUS (test code = 8512062377) Slight Negative LPF A AMORPHOUS (test code = 7655422024) Rare Rare HPF SQ EPITH (test code = 3822550626) HPF Lab Interpretation (test code = 98906-4) Abnormal [facility]INALYSIS2021-02-25 18:26:00* Test Item Value Reference Range Interpretation Comme nts APPEARANCE (test code = 6657048718) Cloudy Clear A COLOR (test code = 7986888754) Shonna Yellow A PH (test code = 2652539740) 4.8-8.0 SP GRAVITY (test code = 4646330400) 1.003-1.030 GLU U QUAL (test code = 9987263346) Normal Normal BLOOD (test code = 7260294569) Negative Negative KETONES (test code = 1627669002) 20 mg/dL Negative A PROTEIN (test code = 2887-8) 30 mg/dL Negative A UROBILIN (test code = 5699605102) Normal Normal BILIRUBIN (test code = 8858140617) Negative Negative NITRITE (test code = 1178414990) Negative Negative LEUK DENNY (test code = 3032221672) 250/uL Negative A RBC/HPF (test code = 8478647660) See_Comment H [Automated Exit41a ge] The system which generated this result transmitted reference range: 0 - 3 HPF. The reference range was not used to interpret this result as normal/abnormal. WBC/HPF (test code = 1003614346) See_Comment H [Automated Exit41a ge] The system which generated this result transmitted reference range: 0 - 5 HPF. The reference range was not used to interpret this result as normal/abnormal. BACTERIA (test code = 7834171353) Few Negative A MUCOUS (test code = 1024004139) Marked Negative LPF A SQ EPITH (test code = 5490537878) HPF YEAST BUD (test code = 3895216677) See_Comment [Automated Exit41a [employer]] The system which generated this result transmitted reference range: <=1 HPF. The reference range was not used to interpret this result as normal/abnormal. Lab Interpretation (test code = 86471-3) Abnormal [facility]entonCOVID-[facility] (ID NOW RAPID TESTING)2020-05-23 18:10:00* Test Item Value Reference Range Interpretation Comme nts SARS-CoV-2 Rapid ID NOW (test code = 43113-5) Not Detected Not Detected YOSHI (test code = YOSHI) ID NOW COVID-19 As say is an isothermal nucleic acid amplification test intended for the qualitative detection of nucleic acid from SARS-CoV-2 viral RNA in nasopharyngeal ([employer]) specimens. It is used under Emergency Use Authorization (EUA) by FDA. The limit of detection (LOD) of the assay is 125 Genome Equivalents/mL. A positive result is indicative of the presence of SARS-CoV-2 RNA. ?Clinical correlation with patient history and other diagnostic information is necessary to determine patient infection status. A negative (Not Detected) result does not preclude SARS-CoV-2 infection. In patients with clinical symptoms and other tests that are consistent with SARS-CoV-2 infection, negative results should be treated as presumptive negative and a new specimen should be tested with alternative PCR molecular test. Invalid: Please collect a new specimen for repeat patient testing if clinically indicated. Lab Interpretation (test code = 44469-6) Normal [facility]"
--- NOTE | 2023-08-02 09:16 | EDPHYS ---
Physician Documentation [facility] Name: Samantha Blum Age: 28 yrs Sex: Female : 1995 Arrival Date: 08/02/2023 Time: 08:51 Bed 16 Private MD: ED Physician Coy Braden HPI: 08/01 09:05 This 28 yrs old Female presents to ER via Unassigned with complaints of Flu Symptoms. sb4 09:19 sinus congestion, headache, ear pain, body aches x 1 week. been taking sudafed, nasal sb4 sprays, and sinus rinses without any improvement. denies any known fevers. no cough, chest pain, sob. Historical: - Allergies: 09:12 Zithromax; aa5 - PMHx: 09:12 HYPOGLYCEMIA; aa5 - PSHx: 09:12 None; aa5 - Immunization history:: Adult Immunizations unknown. - Infectious Disease History:: Denies. - Social history:: Smoking status: Reported history of juuling and/or vaping. ROS: 09:19 Cardiovascular: Negative for chest pain, palpitations, and edema, sb4 09:19 Constitutional: Positive for body aches, 09:19 ENT: Positive for ear pain, sinus congestion, sinus pain, sore throat, 09:19 All other systems are negative, Exam: 09:19 Eyes: Extra-ocular motions intact. Periorbital areas with no swelling, redness, or sb4 edema. ENT: Mucous membranes moist. Cardiovascular: Regular rate and rhythm with a normal S1 and S2. Respiratory: Lungs have equal breath sounds bilaterally, clear to auscultation and percussion. No rales, rhonchi or wheezes noted. No increased work of breathing, no retractions or nasal flaring. Abdomen/GI: Soft, non-tender, no distension. 09:19 Constitutional: The patient appears in no acute distress, alert, awake, obese, obviously ill, 09:19 Head/face: Sinus tenderness, that is mild, is located over the right frontal sinus, left frontal sinus, right ethmoid sinus, left ethmoid sinus, right maxillary sinus and left maxillary sinus, Vital Signs: 09:11 BP 135 / 79; Pulse 77; Resp 18 S; Temp 98.8(O); Pulse Ox 100% on R/A; Weight 107.95 kg aa5 (R); Height 4 ft. 11 in. (R); 09:11 Body Mass Index 48.07 (107.95 kg, 149.86 cm) aa5 MDM: 09:05 Patient medically screened. sb4 09:19 Data reviewed: vital signs, nurses notes, and as a result, I will discharge patient. sb4 Counseling: I had a detailed discussion with the patient and/or guardian regarding the historical points, exam findings, and any diagnostic results supporting the discharge/admit diagnosis, to return to the emergency department if symptoms worsen or persist or if there are any questions or concerns that arise at home. Administered Medications: No medications were administered Disposition Summary: 08/02/23 09:16 Discharge Ordered Notes: Location: Home sb4 Problem: an ongoing problem sb4 Symptoms: are unchanged sb4 Condition: Stable sb4 Diagnosis - Acute pansinusitis sb4 Followup: sb4 - With: Emergency Department - When: As needed - Reason: Trouble breathing, Worsening of condition Discharge Instructions: - Discharge Summary Sheet sb4 - Sinusitis, Adult, Mdzr-we-Okiy sb4 Forms: - Work release form sb4 - Antibiotic Education sb4 - Patient Portal Instructions sb4 - Leadership Thank You Letter sb4 Prescriptions: - Augmentin 875-125 mg Oral Tablet - take 1 tablet ORAL route every 12 hours for 10 days; 20 tablet; Refills: 0, sb4 Product Selection Permitted - Medrol (Yordy) 4 mg Oral Tablets, Dose Pack - take 1 tablet ORAL route as directed - follow package instructions; 1 packet; sb4 Refills: 0, Product Selection Permitted Signatures: Liz Delong RN RN aa5 Renetta Soto PA-C PA-C sb4
--- NOTE | 2023-08-02 09:16 | ER ---
Nurse's Notes [facility] Name: Samantha Blum Age: 28 yrs Sex: Female : 1995 Arrival Date: 08/02/2023 Time: 08:51 Bed 16 Private MD: Diagnosis: Acute pansinusitis Presentation: 08/01 09:11 Chief complaint: Patient states: nasal congestion, body aches, chills, and cough that aa5 began 1 week ago. 09:11 Coronavirus screen: congestion, cough unrelated to allergies. Ebola Screen: Patient aa5 denies travel to an Ebola-affected area in the 21 days before illness onset. Initial Sepsis Screen: Does the patient meet any 2 criteria? No. Patient's initial sepsis screen is negative. Does the patient have a suspected source of infection? No. Patient's initial sepsis screen is negative. Risk Assessment: Do you want to hurt yourself or someone else? Patient reports no desire to harm self or others. Onset of symptoms was July 2023. 09:11 Acuity: KHRIS 4 aa5 09:11 Method Of Arrival: Ambulatory aa5 Historical: - Allergies: 09:12 Zithromax; aa5 - PMHx: 09:12 HYPOGLYCEMIA; aa5 - PSHx: 09:12 None; aa5 - Immunization history:: Adult Immunizations unknown. - Infectious Disease History:: Denies. - Social history:: Smoking status: Reported history of juuling and/or vaping. Screenin:20 [facility] ED Fall Risk Assessment (Adult) History of falling in the last 3 months, kc6 including since admission No falls in past 3 months (0 pts) Confusion or Disorientation No (0 pts) Intoxicated or Sedated No (0 pts) Impaired Gait No (0 pts) Mobility Assist Device Used No (0 pt) Altered Elimination No (0 pt) Score/Fall Risk Level 0 - 2 = Low Risk. Abuse screen: Denies threats or abuse. Denies injuries from another. Nutritional screening: No deficits noted. Tuberculosis screening: No symptoms or risk factors identified. Assessment: 09:21 General: Appears in no apparent distress. comfortable, well groomed, well developed, kc6 Behavior is calm, cooperative, appropriate for age, Reports chills for feeling ill for. Neuro: Level of Consciousness is awake, alert, obeys commands, Oriented to person, place, time, situation, Appropriate for age. Cardiovascular: Capillary refill < 3 seconds. Respiratory: Reports cough that is non-productive, Airway is patent Trachea midline Respiratory effort is even, unlabored, Respiratory pattern is regular, symmetrical. GI: No signs and/or symptoms were reported involving the gastrointestinal system. : No signs and/or symptoms were reported regarding the genitourinary system. EENT: Reports nasal congestion. Derm: No signs and/or symptoms reported regarding the dermatologic system. Skin is intact, is healthy with good turgor, Skin is pink, warm \T\ dry. Musculoskeletal: No signs and/or symptoms reported regarding the musculoskeletal system. Circulation, motion, and sensation intact. Capillary refill < 3 seconds, Range of motion: intact in all extremities. Vital Signs: 09:11 BP 135 / 79; Pulse 77; Resp 18 S; Temp 98.8(O); Pulse Ox 100% on R/A; Weight 107.95 kg aa5 (R); Height 4 ft. 11 in. (R); 09:11 Body Mass Index 48.07 (107.95 kg, 149.86 cm) aa5 ED Course: 08:54 Patient arrived in ED. im 09:00 Renetta Soto PA-C is PHCP. sb4 09:00 Coy Braden MD is Attending Physician. sb4 09:11 Arm band placed on. aa5 09:14 Triage completed. aa5 09:20 Minoo Parish, RN is Primary Nurse. kc6 09:20 Patient has correct armband on for positive identification. Bed in low position. Call kc6 light in reach. Side rails up X 1. Client placed on continuous cardiac and pulse oximetry monitoring. NIBP monitoring applied. Pillow given. 09:26 No provider procedures requiring assistance completed. Patient did not have IV access kc6 during this emergency room visit. Administered Medications: No medications were administered Medication: 09:26 VIS not applicable for this client. kc6 Outcome: 09:16 Discharge ordered by . sb4 09:26 Discharged to home ambulatory, kc6 09:26 Condition: good 09:26 Discharge instructions given to patient, Instructed on discharge instructions, follow up and referral plans. medication usage, Demonstrated understanding of instructions, follow-up care, medications, Prescriptions given X 2, 09:26 Patient left the ED. kc6 Signatures: Liz Delong, RN RN aa5 Minoo Parish RN RN kc6 Renetta Soto PA-C PAMisty sb4 Lexi Griffin
[2023-08-02 10:19] VITALS: BP 135/79; TEMP 98.8; O2SAT 100
== END 2023-08-02 09:26 | disposition home or self-care (01) ==
LOC: ER 08:51
DX: J01.40 Acute pansinusitis, unspecified (principal); Z88.1 Allergy status to other antibiotic agents
CPT/HCPCS: 99283

== ENCOUNTER 2024-12-13 13:42 | Emergency (ER) | payer BC, SELFPAY ==
--- OUTSIDE RECORDS SUMMARY | 2024-12-13 13:53 | XMS REPORT | Continuity of Care Document ---
Author Name Unknown Address [address] [facility] [address] [place] [address] [facility] Address [address] [facility] [place] [address] Care Team Providers Care Substation Design Draftsperson Name Role Phone Larry Serrano Damion Primary Care Physician [phone] JASON ALFREDO Attending Clinician Unavailable Doctor Unassigned, [place] Attending Clinician U HANK Gamez Attending Clinician Unavailable Hank Banuelos Attending Clinician [phone] Unknown, Attending Attending Clinician UnavailMicha Johnson MD Attending Clinician [phone] MICHA DAS Attending Clinician Unavailable Doctor Unassigned, [place] Attending Clinician U Marita Silveira MD Attending Clinician [phone] Only, Adc Test Attending Clinician Unavailable Kimi Finch PA-C Attending Clinician [phone] KIMI FINCH Attending Clinician Unavailable Asya Knox MD Attending Clinician [phone] Celena Foley MD Attending Clinician [phone] Carol Garces RN Attending Clinician Unavailable Pob, [facility] Main Attending Clinician Unavailmigel Duffy RN, Art Attending Clinician Unavailab kaylyn Lebron, [facility] Usg Room Attending Clinician Unavailcisco Guzman MD, Ute Andrews Attending Clinician [phone] Kendrick Hill MD Attending Clinician [phone] Ultrasound, Ang-Mfm Attending Clinician Unavailcisco Anderson MD, Nicko Chery Attending Clinician [phone] Jatin Mcgowan DO Attending Clinician [phone] ASYA KNOX Admitting Clinician Unavailable CELENA FOLEY Admitting Clinician Unavailable MICHA DAS Admitting Clinician Unavailable Micha Das MD Admitting Clinician [phone] Asya Knox MD Admitting Clinician [phone] Celena Foley MD Admitting Clinician [phone] Payers Payer Name Policy Type Policy Number Effective Date Expirati on Date Source [facility] MEDICAID [id number] 2020 00:00:00 [facility] [id number] 00:00:00 [place]ID [place] [id number] 2020 00:00:00 Problems Condition Name Condition Details Condition Category Status Onset Date Resolution Date Last Treatment Date Treating Clinician Comments Source Headache Headache Problem Active 4-24 00:00: 00 [facility] Nausea Nausea Problem Active 4-24 00:00: 00 [facility] Mixed anxiety and depressive disorder Mixed Anxiety and Depressive Disorder Problem Active 1-27 00:00: 00 [facility] Hypoglycem ic disorder Hypoglycem ic Disorder Problem Active 2023-03 0-14 00:00: 00 [facility] Iron deficiency Iron Deficiency Problem Active 2023-03 0-14 00:00: 00 [facility] Sebaceous cyst of skin Sebaceous Cyst of Skin Problem Active 2023-03 0-14 00:00: 00 [facility] Morbid obesity with body mass index of 40.0-49.9 Morbid obesity with body mass index of 40.0-49.9 Disease Active 8-15 00:00: 00 [facility] Class 3 severe obesity without serious comorbidit y with body mass index (BMI) of 45.0 to 49.9 in adult, unspecifie d obesity type Class 3 severe obesity without serious comorbidit y with body mass index (BMI) of 45.0 to 49.9 in adult, unspecifie d obesity type Disease Active 1-28 00:00: 00 [facility] COVID-19 COVID-19 Disease Resolve d 7-26 00:00: 00 2024-06-06 00:00:00 2024-06-06 08:14:55 [facility] Other constipati on Other constipati on Disease Resolve d 6- 00:00: 00 2024-06-06 00:00:00 2024-06-06 08:14:54 [facility] Trichomoni asis Trichomoni asis Disease Resolve d 2-25 00:00: 00 2024-06-06 00:00:00 2024-06-06 08:14:53 [facility] Encounter for elective induction of labor Encounter for elective induction of labor Disease Resolve d 8-31 00:00: 00 2021-01-02 00:00:00 2021-01-02 16:31:13 [facility] Liveborn , of [place] , born in hospital by vaginal delivery Liveborn , of [place] , born in hospital by vaginal delivery Disease Resolve d 8-31 00:00: 00 2021-01-02 00:00:00 2021-01-02 16:31:11 [facility] Morbid obesity with body mass index of 40.0-49.9 Morbid obesity with body mass index of 40.0-49.9 Disease Resolve d 8-15 00:00: 00 2021-01-02 00:00:00 2021-01-02 16:31:20 [facility] Low back pain, unspecifie d back pain laterality , unspecifie d chronicity , unspecifie d whether sciatica present Low back pain, unspecifie d back pain laterality , unspecifie d chronicity , unspecifie d whether sciatica present Disease Resolve d 6-01 00:00: 00 2021-01-02 00:00:00 2021-01-02 16:31:39 [facility] Rash Rash Disease Resolve d 5-04 00:00: 00 2021-01-02 00:00:00 2021-01-02 16:32:00 [facility] Abnormal ultrasound Abnormal ultrasound Disease Resolve d 4-21 00:00: 00 2021-01-02 00:00:00 2021-01-02 16:31:31 [facility] Obesity in Obesity in Disease Resolve d 1- 00:00: 00 2021-01-02 00:00:00 2021-01-02 16:31:55 [facility] Supervisio n of high risk in third trimester Supervisio n of high risk in third trimester Disease Resolve d 1- 00:00: 00 2021-01-02 00:00:00 2021-01-02 16:31:44 [facility] contractio ns contractio ns Disease Resolve d 8-11 00:00: 00 2020-11-12 00:00:00 2020-11-12 07:47:59 [facility] Decreased movements in third trimester Decreased movements in third trimester Disease Resolve d 8-11 00:00: 00 2020-11-12 00:00:00 2020-11-12 07:48:09 [facility] Urinary tract infection without hematuria, site unspecifie d Urinary tract infection without hematuria, site unspecifie d Disease Resolve d 04-25 00:00: 00 2020-11-12 00:00:00 2020-11-12 07:47:58 [facility] Nausea and vomiting, intractabi lity of vomiting not specified, unspecifie d vomiting type Nausea and vomiting, intractabi lity of vomiting not specified, unspecifie d vomiting type Disease Resolve d - 00:00: 00 2020-08-13 00:00:00 2020-08-13 09:13:17 [facility] Allergies, Adverse Reactions, Alerts Allergy Name Allergy Type Status Severity Reaction(s) Onset Date Inactive Date Treating Clinician Comments Source Azithrom ycin Propensi ty to adverse reaction s Active Other - See comments 12-23 00:00: 00 Since childhood [facility] AZITHROM YCIN DRUG INGREDI Active Hives 12-23 00:00: 00 [facility] Azithrom ycin Allergy to substanc e Active Hives [facility] Family History Family Member Diagnosis Comments Start Date Stop Date Sourc e [facility] Social History Social Habit Start Date Stop Date Quantity Comments Source ASSERTION 2020-03-12 00:00:00 Not [facility] Alcoholic beverage intake 2024-06-06 00:00:00 2024-06-06 00:00:00 Ex-drinker (finding) [facility] Tobacco use and exposure 2024-06-06 00:00:00 2024-06-06 00:00:00 Smokeless tobacco non-user [facility] Exposure to SARS-CoV-2 (event) 2020-10-26 00:00:00 2020-11-25 12:47:00 Not sure [facility] History of Social function 2020-06-20 00:00:00 2020-06-20 00:00:00 [facility] Alcohol intake 2020-04-25 00:00:00 2020-04-25 00:00:00 Ex-drinker (finding) [facility] Sex assigned at 1995 00:00:00 1995 00:00:00 [facility] Smoking Status Start Date Stop Date Source Former Smoker [facility] Never smoked tobacco [facility] Medications Ordered Medication Name Filled Medication Name Start Date Stop Date Current Medication? Ordering Clinician Indication Dosage Frequency Signature (SIG) Comments Components Source etonogestre L (NEXPLANON) implant 68 mg 2020-03 22:30: 00 01-02 21:33 :00 No [id number] 68mg [facility] ibuprofen 600 mg tablet 11-28 00:00: 00 Yes [id number] 102 600mg Take 1 tablet by mouth every 6 (six) hours as needed (Pain). Take with food or milk. [facility] vitamin w/FA (PRENATABS RX) tablet 1 tablet 11-27 14:00: 00 Yes 1{tbl} 1 tablet, Oral, DAILY, First dose on Wed11/27/20 at 0900, Until Discontinu ed, Routine [facility] LR 1000 mL + oxytocin 20 units IV Solution 11-27 04:30: 00 Yes 125mL/h 125 mL/hr, IV Infusion, CONTINUOUS , Starting Wed11/26/20 at 2330
X 1 liter only.
[facility] rho(D) immune globulin (RHOGAM) syringe 300 mcg 11-27 03:25: 45 Yes 300ug 300 mcg, Intramuscu lar, ONCE, For 1 dose, Conditiona l, Routine [facility] ibuprofen (IBU) tablet 600 mg 11-27 03:25: 04 Yes 600mg 600 mg, Oral, Q6HPRN, Starting Wed11/26/20 at 2225, Until Discontinu ed, Routine, Pain (scale 4-6) [facility] acetaminoph en (TYLENOL) tablet 650 mg 11-27 03:25: 04 Yes 650mg 650 mg, Oral, Q6HPRN, Starting Wed11/26/20 at 2225, Until Discontinu ed, Routine, Pain (scale 1-3) [facility] diphenhydrA MINE (BENADRYL) tablet 25 mg 11-27 03:25: 03 Yes 25mg 25 mg, Oral, Q6HPRN, Starting Wed11/26/20 at 2225, Until Discontinu ed, Routine, Sleep, Itching [facility] diphenhydrA MINE (BENADRYL) 25 mg in NaCl 0.9% (NS) piggyback 11-27 03:25: 03 Yes 25mg 25 mg, IV Piggyback, Administer over 30 Minutes, Q6HPRN, Starting Wed11/26/20 at 2225, Until Discontinu ed, Routine, Itching [facility] ondansetron (ZOFRAN (PF)) injection 4 mg 11-27 03:25: 03 Yes 4mg 4 mg, Slow IV Push, Q8HPRN, Starting Wed11/26/20 at 2225, Until Discontinu ed, Routine, Nausea and Vomiting (N/V) [facility] simethicone (GAS RELIEF (SIMETHICON E)) chewable tablet 160 mg 11-27 03:25: 03 Yes 160mg 160 mg, Oral, PC+HSPRN, Starting Wed11/26/20 at 2225, Until Discontinu ed, Routine, Gas [facility] docusate calcium (SURFAK) capsule 240 mg 11-27 03:25: 03 Yes 240mg 240 mg, Oral, QDAILYPRN, Starting Wed11/26/20 at 2225, Until Discontinu ed, Routine, Constipati on [facility] magnesium hydroxide (MILK OF MAGNESIA) 400 mg/5 mL suspension 30 mL 11-27 03:25: 03 Yes 30mL 30 mL, Oral, QDAILYPRN, Starting Wed11/26/20 at 2225, Until Discontinu ed, Routine, Constipati on [facility] benzocaine- menthol (DERMOPLAST ) 20-0.5 % topical spray 11-27 03:25: 03 Yes Topical, PRN, Starting Wed11/26/20 at 2225, Until Discontinu ed, Routine, Perineum discomfort [facility] FENTanyl 2 mcg/mL + bupivacaine 0.125% in NS 250 mL epidural bag 11-27 01:18: 00 11-27 04:26 :26 No Intra-op [facility] lidocaine-e pinephrine (XYLOCAINE W/EPINEPHRI NE) 1.5 %-1:200,000 injection 11-27 01:15: 00 11-27 04:26 :26 No Intraderma l, ONCE INTRA PROCEDURE, Starting Wed11/26/20 at 2015, Until Discontinu ed, Routine, Intra-op [facility] misoprostol (CYTOTEC) quarter-tab let 25 mcg 11-26 19:00: 00 11-26 18:53 :00 No 25ug 25 mcg, Oral, ONCE, 1 dose, Wed11/26/20 at 1400, Routine [facility] misoprostol (CYTOTEC) quarter-tab let 25 mcg 11-26 16:45: 00 11-26 16:38 :00 No 25ug 25 mcg, Vaginal, ONCE, 1 dose, Wed11/26/20 at 1145, Routine [facility] ondansetron (ZOFRAN (PF)) injection 4 mg 11-26 14:54: 28 Yes 4mg 4 mg, Slow IV Push, Q6HPRN, Starting Wed11/26/20 at 0954, Until Discontinu ed, Routine, Nausea and Vomiting (N/V) [facility] FENTanyl PF (SUBLIMAZE (PF)) injection 100 mcg 11-26 14:54: 08 11-26 22:11 :00 No 100ug 100 mcg, Slow IV Push, Q1HPRN, 2 doses, Starting Wed11/26/20 at 0954, Until Discontinu ed, Routine, Pain (scale 7-10) [facility] D5W-LR IV infusion 1,000 mL 11-26 09:00: 00 Yes 1000mL at 125 mL/hr, IV Infusion, CONTINUOUS , Starting Wed11/26/20 at 0400, Until Discontinu ed, Routine [facility] LR 1000 mL + oxytocin 20 units IV Solution 11-26 08:50: 39 Yes 2mU/min at 6-120 mL/hr, IV Infusion, TITRATE, Starting Wed11/26/20 at 0350, Until Discontinu ed, PETER [facility] sodium citrate-cit jena acid (BICITRA) 500-334 mg/5 mL solution 30 mL 11-26 08:50: 39 Yes 30mL 30 mL, Oral, PRE-PROCED URE ONCE, 1 dose, Starting Wed11/26/20 at 0350, Until Discontinu ed, Routine, Surgery/Pr ocedure [facility] lidocaine 1% (XYLOCAINE) 10 mg/mL (1 %) injection 30 mL 11-26 08:50: 39 Yes 30mL 30 mL, Infiltrati on, PRN - SEE INSTRUCTIO NS, Starting Wed11/26/20 at 0350, Until Discontinu ed, Routine, Local anesthesia , For laceration repair only as a local anesthetic as indicated. [facility] lidocaine 1% (PF) (XYLOCAINE) injection 0.3 mL 11-26 08:50: 39 Yes .3mL 0.3 mL, Infiltrati on, PRN - SEE INSTRUCTIO NS, Starting Wed11/26/20 at 0350, Until Discontinu ed, Routine, Local anesthesia , For IV line placement only as a local anesthetic . [facility] lactated ringers IV infusion 500 mL 11-26 08:50: 39 Yes 500mL at 999 mL/hr, 500 mL, IV Infusion, PRN - SEE INSTRUCTIO NS, Starting Wed11/26/20 at 0350, Until Discontinu ed, Routine [facility] lactated ringers IV infusion 1,000 mL 11-07 03:45: 00 Yes 1000mL at 125 mL/hr, 1,000 mL, IV Infusion, CONTINUOUS , Starting Wed11/06/20 at 2245, Until Discontinu ed, Routine [facility] lactated ringers IV infusion 1,000 mL 11-07 02:45: 00 11-07 01:58 :00 No 1000mL at 999 mL/hr, 1,000 mL, IV Infusion, ONCE, 1 dose, Wed11/06/20 at 2145, STAT [facility] nalbuphine (NUBAIN) injection 10 mg 11-07 02:45: 00 11-07 01:58 :00 No 10mg 10 mg, Intravenou s, ONCE, 1 dose, Wed11/06/20 at 2145, Routine [facility] proMETHazin e (PHENERGAN) 25 mg in NaCl 0.9% (NS) 50 mL IV piggyback 11-07 01:36: 27 Yes 25mg 25 mg, IV Piggyback, Q4HPRN, Starting Wed11/06/20 at 2036, Until Discontinu ed, Routine, Nausea and Vomiting (N/V) [facility] lactated ringers IV infusion 1,000 mL 11-06 23:00: 00 11-06 23:31 :00 No 1000mL at 999 mL/hr, 1,000 mL, IV Infusion, ONCE, 1 dose, Wed11/06/20 at 1815, STAT [facility] proMETHazin e (PHENERGAN) 25 mg in NaCl 0.9% (NS) 50 mL IV piggyback 11-06 23:00: 00 11-06 23:33 :00 No 25mg 25 mg, IV Piggyback, ONCE, 1 dose, Wed11/06/20 at 1815, Routine [facility] acetaminoph en (TYLENOL) tablet 650 mg 11-06 23:00: 00 11-06 23:33 :00 No 650mg 650 mg, Oral, ONCE, 1 dose, Wed11/06/20 at 1815, Routine [facility] vit w/iron fumarate and FA ( VITAMIN WITH MINERALS) tablet 10-21 00:00: 00 01-02 00:00 :00 No [id number] 1{tbl} Take 1 tablet by mouth daily. [facility] amoxicillin 500 mg capsule -14 00:00: 00 10-17 04:59 :00 No [id number] 500mg Take 1 capsule by mouth 2 (two) times daily for 7 days. [facility] clobetasoL 0.05 % ointment 18 00:00: 00 Yes [id number] Apply to area(s) 2 (two) times daily. [facility] cetirizine 10 mg tablet 07-30 00:00: 00 Yes [id number] 10mg Take 1 tablet by mouth daily. [facility] diphenhydrA MINE 25 mg capsule 07-30 00:00: 00 11-05 00:00 :00 No [id number] 25mg Take 1 capsule by mouth every 6 (six) hours as needed for Allergies. [facility] vit 33-iron-fol ic-dha (SELECT-OB + DHA) 29 mg iron-1 mg -250 mg combo pack - 00:00: 00 Yes [id number] 1{packe t} Take 1 Packet by mouth daily. [facility] lactated ringers IV infusion 1,000 mL 05-23 17:25: 00 Yes 1000mL at 999 mL/hr, 1,000 mL, IV Infusion, CONTINUOUS , Starting Juliana 05/23/20 at 1145, Until Discontinu ed, Routine [facility] proMETHazin e (PHENERGAN) 25 mg in NaCl 0.9% (NS) 50 mL IV piggyback 05-23 17:25: 00 05-23 17:52 :00 No 25mg 25 mg, IV Piggyback, ONCE, 1 dose, Juliana 05/23/20 at 1145, Routine [facility] SELECT-OB + DHA 29 mg iron-1 mg -250 mg combo pack 05-19 00:00: 00 Yes TAKE 1 TABLET AND 1 CAPSULE BY MOUTH ONCE DAILY [facility] metroNIDAZO LE 500 mg tablet 05-15 00:00: 00 05-23 05:59 :00 No [id number] 500mg Take 1 tablet by mouth 2 (two) times daily for 7 days. [facility] fluconazole 150 mg tablet 05-15 00:00: 00 05-20 05:59 :00 No [id number] 150mg Take 1 tablet by mouth every 72 (seventy-t wo) hours for 2 doses. [facility] metroNIDAZO LE 500 mg tablet 05-15 00:00: 00 05-16 05:59 :00 No [id number] 2000mg Take 4 tablets by mouth once now for 1 dose. [facility] proMETHazin e 12.5 mg tablet 05-09 00:00: 00 11-05 00:00 :00 No [id number] 12.5mg Take 1 tablet by mouth every 4 (four) hours as needed for Nausea and Vomiting (N/V). [facility] metoclopram florence HCl (REGLAN) 5 mg tablet 04-25 00:00: 00 Yes [id number] 5mg Take 1 tablet by mouth every 6 (six) hours as needed for Nausea and Vomiting (N/V). [facility] vit w/iron fumarate and FA ( VITAMIN WITH MINERALS) tablet 04-25 00:00: 00 Yes [id number] 1{tbl} Take 1 tablet by mouth daily. [facility] pyridoxine, VITAMIN B-6, 25 mg tablet 04-25 00:00: 00 01-02 00:00 :00 No [id number] 25mg Take 1 tablet by mouth 3 (three) times daily. [facility] doxylamine 25 mg tablet 04-25 00:00: 00 01-02 00:00 :00 No [id number] 25mg Take 1 tablet by mouth at bedtime. [facility] cephALEXin 250 mg capsule 04-24 00:00: 00 Yes [facility] promethazin e 50 mg tablet 04-09 00:00: 00 Yes TAKE 1 2 (ONE HALF) TABLET BY MOUTH 30 MINUTES BEFORE MEALS NEEDED DIRECTED [facility] fluticasone propionate 50 mcg/actuati on nasal spray,suspe nsion 1 SPRAY TO EACH NOSTRIL TWICE DAILY NEEDED FOR NASAL CONGESTION fluticasone propionate 50 mcg/actuati on nasal spray,suspe nsion 1 SPRAY TO EACH NOSTRIL TWICE DAILY NEEDED FOR NASAL CONGESTION No fluticason e propionate 50 mcg/actuat ion nasal spray,susp ension 1 SPRAY TO EACH NOSTRIL TWICE DAILY NEEDED FOR NASAL CONGESTION [facility] montelukast 10 mg tablet Take 1 tablet every day by oral route for 90 days, for seasonal allergy. montelukast 10 mg tablet Take 1 tablet every day by oral route for 90 days, for seasonal allergy. No 1 Q1D montelukas t 10 mg tablet Take 1 tablet every day by oral route for 90 days, for seasonal allergy. [facility] multivitami n multivitami n No multivitam in [facility] Nexplanon 68 mg subdermal implant Inject by subcutaneou s route. Nexplanon 68 mg subdermal implant Inject by subcutaneou s route. No Nexplanon 68 mg subdermal implant Inject by subcutaneo us route. [facility] fluoxetine 40 mg capsule Take 2 capsules every day by oral route for 90 days. fluoxetine 40 mg capsule Take 2 capsules every day by oral route for 90 days. No 2capsul e(s) Q1D fluoxetine 40 mg capsule Take 2 capsules every day by oral route for 90 days. [facility] Immunizations Ordered Immunization Name Filled Immunization Name Date Status Comments Source TDAP 2020-09-10 00:00:00 Completed [facility] TDAP 2020-09-10 00:00:00 Completed [facility] TDAP 2020-09-10 00:00:00 Completed [facility] TDAP 2020-09-10 00:00:00 Completed [facility] TDAP 2020-09-10 00:00:00 Completed [facility] TDAP 2020-09-10 00:00:00 Completed [facility] TDAP 2020-09-10 00:00:00 Completed [facility] TDAP 2020-09-10 00:00:00 Completed [facility] TDAP 2020-09-10 00:00:00 Completed [facility] TDAP 2020-09-10 00:00:00 Completed [facility] TDAP 2020-09-10 00:00:00 Completed [facility] TDAP 2020-09-10 00:00:00 Completed [facility] TDAP 2020-09-10 00:00:00 Completed [facility] TDAP 2020-09-10 00:00:00 Completed [facility] TDAP 2020-09-10 00:00:00 Completed [facility] TDAP 2020-09-10 00:00:00 Completed [facility] TDAP 2020-09-10 00:00:00 Completed [facility] TDAP 2020-09-10 00:00:00 Completed [facility] TDAP 2020-09-10 00:00:00 Completed [facility] TDAP 2020-09-10 00:00:00 Completed [facility] TDAP 2020-09-10 00:00:00 Completed [facility] TDAP 2020-09-10 00:00:00 Completed [facility] TDAP 2020-09-10 00:00:00 Completed [facility] TDAP 2020-09-10 00:00:00 Completed [facility] TDAP 2020-09-10 00:00:00 Completed [facility] Influenza Virus Vaccine Quad .5 mL IM 6+ MO 2020-04-25 00:00:00 Completed [facility] Influenza Virus Vaccine Quad .5 mL IM 6+ MO 2020-04-25 00:00:00 Completed [facility] Influenza Virus Vaccine Quad .5 mL IM 6+ MO (FLUZONE/FLULAVAL/F LUARIX) 2020-04-25 00:00:00 Completed [facility] Influenza Virus Vaccine Quad .5 mL IM 6+ MO 2020-04-25 00:00:00 Completed [facility] Influenza Virus Vaccine Quad .5 mL IM 6+ MO 2020-04-25 00:00:00 Completed [facility] Influenza Virus Vaccine Quad .5 mL IM 6+ MO 2020-04-25 00:00:00 Completed [facility] Influenza Virus Vaccine Quad .5 mL IM 6+ MO 2020-04-25 00:00:00 Completed [facility] Influenza Virus Vaccine Quad .5 mL IM 6+ MO 2020-04-25 00:00:00 Completed [facility] Influenza Virus Vaccine Quad .5 mL IM 6+ MO 2020-04-25 00:00:00 Completed [facility] Influenza Virus Vaccine Quad .5 mL IM 6+ MO 2020-04-25 00:00:00 Completed [facility] Influenza Virus Vaccine Quad .5 mL IM 6+ MO 2020-04-25 00:00:00 Completed [facility] Influenza Virus Vaccine Quad .5 mL IM 6+ MO 2020-04-25 00:00:00 Completed [facility] Influenza Virus Vaccine Quad .5 mL IM 6+ MO 2020-04-25 00:00:00 Completed [facility] Influenza Virus Vaccine Quad .5 mL IM 6+ MO 2020-04-25 00:00:00 Completed [facility] Influenza Virus Vaccine Quad .5 mL IM 6+ MO 2020-04-25 00:00:00 Completed [facility] Influenza Virus Vaccine Quad .5 mL IM 6+ MO 2020-04-25 00:00:00 Completed [facility] Influenza Virus Vaccine Quad .5 mL IM 6+ MO 2020-04-25 00:00:00 Completed [facility] Influenza Virus Vaccine Quad .5 mL IM 6+ MO 2020-04-25 00:00:00 Completed [facility] Influenza Virus Vaccine Quad .5 mL IM 6+ MO 2020-04-25 00:00:00 Completed [facility] Influenza Virus Vaccine Quad .5 mL IM 6+ MO 2020-04-25 00:00:00 Completed [facility] Influenza Virus Vaccine Quad .5 mL IM 6+ MO 2020-04-25 00:00:00 Completed [facility] Influenza Virus Vaccine Quad .5 mL IM 6+ MO 2020-04-25 00:00:00 Completed [facility] Influenza Virus Vaccine Quad .5 mL IM 6+ MO 2020-04-25 00:00:00 Completed [facility] Influenza Virus Vaccine Quad .5 mL IM 6+ MO 2020-04-25 00:00:00 Completed [facility] Influenza Virus Vaccine Quad .5 mL IM 6+ MO 2020-04-25 00:00:00 Completed [facility] Influenza Virus Vaccine Quad .5 mL IM 6+ MO 2020-04-25 00:00:00 Completed [facility] Influenza Virus Vaccine Quad .5 mL IM 6+ MO 2020-04-25 00:00:00 Completed [facility] Influenza Virus Vaccine Quad .5 mL IM 6+ MO 2020-04-25 00:00:00 Completed [facility] Influenza Virus Vaccine Quad .5 mL IM 6+ MO 2020-04-25 00:00:00 Completed [facility] Influenza Virus Vaccine Quad .5 mL IM 6+ MO 2020-04-25 00:00:00 Completed [facility] Influenza Virus Vaccine Quad .5 mL IM 6+ MO 2020-04-25 00:00:00 Completed [facility] Influenza Virus Vaccine Quad .5 mL IM 6+ MO 2020-04-25 00:00:00 Completed [facility] Influenza Virus Vaccine Quad .5 mL IM 6+ MO 2020-04-25 00:00:00 Completed [facility] Influenza Virus Vaccine Quad .5 mL IM 6+ MO 2020-04-25 00:00:00 Completed [facility] Influenza Virus Vaccine Quad .5 mL IM 6+ MO 2020-04-25 00:00:00 Completed [facility] Influenza Virus Vaccine Quad .5 mL IM 6+ MO 2020-04-25 00:00:00 Completed [facility] Influenza Virus Vaccine Quad .5 mL IM 6+ MO 2020-04-25 00:00:00 Completed [facility] Influenza Virus Vaccine Quad .5 mL IM 6+ MO 2020-04-25 00:00:00 Completed [facility] Influenza Virus Vaccine Quad .5 mL IM 6+ MO 2020-04-25 00:00:00 Completed [facility] Influenza Virus Vaccine Quad .5 mL IM 6+ MO 2020-04-25 00:00:00 Completed [facility] Influenza Virus Vaccine Quad .5 mL IM 6+ MO 2020-04-25 00:00:00 Completed [facility] influenza, recombinant, injectable, preservative free influenza, recombinant, injectable, preservative free Unknown Completed [facility] Influenza Virus Vaccine Quad .5 mL IM 6+ MO (FLUZONE/FLULAVAL/F LUARIX) Unknown Completed [facility] Influenza Virus Vaccine Quad .5 mL IM 6+ MO (FLUZONE/FLULAVAL/F LUARIX) Unknown Completed [facility] TDAP Unknown Completed [facility] Vital Signs Vital Name Observation Time Observation Value Comments S ource Body Weight 2024-09-05 00:00:00 3808 [oz_av] [facility] Height 2024-09-05 00:00:00 59 [in_i] [facility] BP Systolic 2024-09-05 00:00:00 142 mm[Hg] [facility] BP Diastolic 2024-09-05 00:00:00 82 mm[Hg] [facility] BMI (Body Mass Index) 2024-09-05 00:00:00 48.1 kg/m2 [facility] Body Weight 2024-07-20 00:00:00 3816 [oz_av] [facility] BP Diastolic 2024-07-20 00:00:00 79 mm[Hg] [facility] Height 2024-07-20 00:00:00 59 [in_i] [facility] BMI (Body Mass Index) 2024-07-20 00:00:00 48.2 kg/m2 [facility] BP Systolic 2024-07-20 00:00:00 112 mm[Hg] [facility] BP Systolic 2024-04-24 00:00:00 125 mm[Hg] [facility] BMI (Body Mass Index) 2024-04-24 00:00:00 47.5 kg/m2 [facility] Height 2024-04-24 00:00:00 59 [in_i] [facility] BP Diastolic 2024-04-24 00:00:00 77 mm[Hg] [facility] Body Weight 2024-04-24 00:00:00 3760 [oz_av] [facility] Height 2024-03-17 00:00:00 59 [in_i] [facility] BP Systolic 2024-03-17 00:00:00 133 mm[Hg] [facility] BP Diastolic 2024-03-17 00:00:00 72 mm[Hg] [facility] Body Weight 2024-03-17 00:00:00 3808 [oz_av] [facility] BP Diastolic 2024-01-10 00:00:00 80 mm[Hg] [facility] BMI (Body Mass Index) 2024-01-10 00:00:00 49.1 kg/m2 [facility] Body Weight 2024-01-10 00:00:00 3888 [oz_av] [facility] BP Systolic 2024-01-10 00:00:00 138 mm[Hg] [facility] Height 2024-01-10 00:00:00 59 [in_i] [facility] Systolic blood pressure 2023-12-06 14:36:00 115 mm[Hg] [facility] Diastolic blood pressure 2023-12-06 14:36:00 84 mm[Hg] [facility] Heart rate 2023-12-06 14:36:00 111 /min [facility] Body temperature 2023-12-06 14:36:00 37.06 Rosi [facility] Respiratory rate 2023-12-06 14:36:00 18 /min [facility] Body weight 2023-12-06 14:36:[address] [facility] BMI 2023-12-06 14:36:00 50.53 kg/m2 [facility] Oxygen saturation in Arterial blood by Pulse oximetry 2023-12-06 14:36:00 99 /min [facility] Systolic blood pressure 2021-01-02 21:12:00 87 mm[Hg] [facility] Diastolic blood pressure 2021-01-02 21:12:00 59 mm[Hg] [facility] Heart rate 2021-01-02 21:11:00 79 /min [facility] Respiratory rate 2021-01-02 21:11:00 19 /min [facility] Body height 2021-01-02 21:11:00 149.9 cm [facility] Body weight 2021-01-02 21:11:[address] [facility] BMI 2021-01-02 21:11:00 45.56 kg/m2 [facility] Oxygen saturation in Arterial blood by Pulse oximetry 2021-01-02 21:11:00 98 /min [facility] Systolic blood pressure 2020-11-28 12:30:00 128 mm[Hg] [facility] Diastolic blood pressure 2020-11-28 12:30:00 57 mm[Hg] [facility] Heart rate 2020-11-28 12:30:00 72 /min [facility] Body temperature 2020-11-28 12:30:00 36.72 Rosi [facility] Respiratory rate 2020-11-28 12:30:00 16 /min [facility] Oxygen saturation in Arterial blood by Pulse oximetry 2020-11-28 12:30:00 100 /min [facility] Body height 2020-11-26 09:00:[address] [facility] Body weight 2020-11-26 09:00:[address] [facility] BMI 2020-11-26 09:00:00 49.81 kg/m2 [facility] Systolic blood pressure 2020-11-19 21:45:00 96 mm[Hg] [facility] Diastolic blood pressure 2020-11-19 21:45:00 62 mm[Hg] [facility] Heart rate 2020-11-19 21:45:00 89 /min [facility] Body temperature 2020-11-19 21:45:00 36.56 Rosi [facility] Respiratory rate 2020-11-19 21:45:00 18 /min [facility] Body height 2020-11-19 21:45:[address] [facility] Body weight 2020-11-19 21:45:[address] [facility] BMI 2020-11-19 21:45:00 49.85 kg/m2 [facility] Systolic blood pressure 2020-11-11 20:15:00 106 mm[Hg] [facility] Diastolic blood pressure 2020-11-11 20:15:00 77 mm[Hg] [facility] Heart rate 2020-11-11 20:15:00 92 /min [facility] Body temperature 2020-11-11 20:15:00 36.56 Rosi [facility] Respiratory rate 2020-11-11 20:15:00 18 /min [facility] Body height 2020-11-11 20:15:[address] [facility] Body weight 2020-11-11 20:15:[address] [facility] BMI 2020-11-11 20:15:00 50.25 kg/m2 [facility] Systolic blood pressure 2020-11-09 20:15:00 132 mm[Hg] [facility] Diastolic blood pressure 2020-11-09 20:15:00 69 mm[Hg] [facility] Heart rate 2020-11-09 20:15:00 87 /min [facility] Oxygen saturation in Arterial blood by Pulse oximetry 2020-11-09 20:15:00 100 /min [facility] Body temperature 2020-11-09 19:30:00 36.72 Rosi [facility] Respiratory rate 2020-11-09 19:30:00 18 /min [facility] Body height 2020-11-09 19:30:[address] [facility] Body weight 2020-11-09 19:30:[address] [facility] BMI 2020-11-09 19:30:00 48.47 kg/m2 [facility] Heart rate 2020-11-07 04:30:00 79 /min [facility] Oxygen saturation in Arterial blood by Pulse oximetry 2020-11-07 04:30:00 100 /min [facility] Systolic blood pressure 2020-11-06 23:15:00 118 mm[Hg] [facility] Diastolic blood pressure 2020-11-06 23:15:00 54 mm[Hg] [facility] Body temperature 2020-11-06 22:30:00 37 Rosi [facility] Respiratory rate 2020-11-06 22:30:00 18 /min [facility] Systolic blood pressure 2020-11-05 13:39:00 106 mm[Hg] [facility] Diastolic blood pressure 2020-11-05 13:39:00 74 mm[Hg] [facility] Heart rate 2020-11-05 13:39:00 114 /min [facility] Body temperature 2020-11-05 13:39:00 36.72 Rosi [facility] Respiratory rate 2020-11-05 13:39:00 20 /min [facility] Body height 2020-11-05 13:39:[address] [facility] Body weight 2020-11-05 13:39:[address] [facility] BMI 2020-11-05 13:39:00 49.56 kg/m2 [facility] Heart rate 2020-10-29 22:00:00 95 /min [facility] Systolic blood pressure 2020-10-29 21:10:00 122 mm[Hg] [facility] Diastolic blood pressure 2020-10-29 21:10:00 84 mm[Hg] [facility] Body temperature 2020-10-29 21:10:00 36.89 [facility] Respiratory rate 2020-10-29 21:10:00 18 /min [facility] Oxygen saturation in Arterial blood by Pulse oximetry 2020-10-29 21:10:00 99 /min [facility] Heart rate 2020-10-16 16:30:00 79 /min [facility] Oxygen saturation in Arterial blood by Pulse oximetry 2020-10-16 16:30:00 100 /min [facility] Systolic blood pressure 2020-10-16 15:58:00 138 mm[Hg] [facility] Diastolic blood pressure 2020-10-16 15:58:00 76 mm[Hg] [facility] Body temperature 2020-10-16 15:58:00 36.89 [facility] Respiratory rate 2020-10-16 15:58:00 18 /min [facility] Body height 2020-10-16 15:58:[address] [facility] Body weight 2020-10-16 15:58:[address] [facility] BMI 2020-10-16 15:58:00 48.07 kg/m2 [facility] Systolic blood pressure 2020-05-31 16:11:00 117 mm[Hg] [facility] Diastolic blood pressure 2020-05-31 16:11:00 72 mm[Hg] [facility] Heart rate 2020-05-31 16:11:00 79 /min [facility] Respiratory rate 2020-05-31 16:11:00 16 /min [facility] Oxygen saturation in Arterial blood by Pulse oximetry 2020-05-31 16:11:00 97 /min [facility] Body temperature 2020-05-31 15:12:00 37.17 Rosi [facility] Body height 2020-05-31 15:12:[address] [facility] Body weight 2020-05-31 15:12:[address] [facility] BMI 2020-05-31 15:12:00 47.26 kg/m2 [facility] Systolic blood pressure 2020-05-31 16:11:00 117 mm[Hg] [facility] Diastolic blood pressure 2020-05-31 16:11:00 72 mm[Hg] [facility] Heart rate 2020-05-31 16:11:00 79 /min [facility] Respiratory rate 2020-05-31 16:11:00 16 /min [facility] Oxygen saturation in Arterial blood by Pulse oximetry 2020-05-31 16:11:00 97 /min [facility] Body temperature 2020-05-31 15:12:00 37.17 [facility] Body height 2020-05-31 15:12:[address] [facility] Body weight 2020-05-31 15:12:[address] [facility] BMI 2020-05-31 15:12:00 47.26 kg/m2 [facility] Body temperature 2020-05-23 16:50:00 36.78 Rosi [facility] Respiratory rate 2020-05-23 16:50:00 16 /min [facility] Oxygen saturation in Arterial blood by Pulse oximetry 2020-05-23 16:50:00 100 /min [facility] Body temperature 2020-05-23 16:50:00 36.78 Rosi [facility] Respiratory rate 2020-05-23 16:50:00 16 /min [facility] Oxygen saturation in Arterial blood by Pulse oximetry 2020-05-23 16:50:00 100 /min [facility] Systolic blood pressure 2024-06-06 12:34:00 123 mm[Hg] [facility] Diastolic blood pressure 2024-06-06 12:34:00 77 mm[Hg] [facility] Heart rate 2024-06-06 12:34:00 61 /min [facility] Body temperature 2024-06-06 12:34:00 36.83 Rosi [facility] Respiratory rate 2024-06-06 12:34:00 18 /min [facility] Body height 2024-06-06 12:34:[address] [facility] Body weight 2024-06-06 12:34:[address] [facility] BMI 2024-06-06 12:34:00 49.08 kg/m2 [facility] Oxygen saturation in Arterial blood by Pulse oximetry 2023-12-06 14:36:00 99 /min [facility] Procedures Procedure Date / Time Performed Performing Clinician Source POCT MOLECULAR FLU 2023-12-06 14:44:00 Hank Adame [facility] POCT SARS-COV-2 ANTIGEN (BINAX NOW) 2023-12-06 14:44:00 Malissa Sy [facility] POCT MOLECULAR STREP 2023-12-06 14:42:00 Unknown, Attdamion ng [facility] POCT TEST 2021-01-02 21:14:00 Micha Das [facility] CONSENT FOR CONTRACEPTION 2021-01-02 05:01:00 Doctor Unassigned, [place] [facility] CBC WITH DIFF 2020-11-27 09:42:00 Micha Das [facility] VENOUS CORD GAS 2020-11-27 03:17:00 Micha Das [facility] CENTRAL NEURAXIAL BLOCK 2020-11-27 01:30:40 Deanna Clark [facility] HIV 1/2 AG-AB WITH REFLEX 2020-11-26 09:28:00 Fish, [facility] CBC WITH DIFF 2020-11-26 09:28:00 Fish, Micha [facility] HEPATITIS B SURFACE ANTIGEN 2020-11-26 09:28:00 Fish, [facility] ADC OR DEBBY ONLY - RPR 2020-11-26 09:28[facility]00 [facility] WITH REFLEX 2020-11-26 09:28:00 Fish, [facility] HB ABO GROUPING 2020-11-26 09:25:00 Fish, Micha [facility] RHO (D) IMMUNE GLOBULIN 2020-11-26 09:25:00 Fish, Henok [facility] ASSIGNMENT OF BENEFITS 2020-11-22 16:16:05 Docto r Unassigned, [place] [facility] NON-STRESS TEST 2020-11-19 22:03:33 [facility] POCT URINALYSIS W/O SPECIFIC GRAVITY 2020-11-19 00:00:00 Kimi Finch [facility] NON-STRESS TEST 2020-11-11 21:17:44 Thiago, [facility] POCT URINALYSIS W/O SPECIFIC GRAVITY 2020-11-11 20:19:00 Thiago, [facility] AMYLASE 2020-11-09 20:14:00 Asya Knox [facility] LIPASE 2020-11-09 20:14:00 Asya Knox [facility] COMP. METABOLIC PANEL ([id number]) 2020-11-09 20:14:00 Asya Knox [facility] CBC WITH DIFF 2020-11-09 20:14:00 Asya Knox [facility] URINALYSIS 2020-11-09 20:14:00 Asya Knox [facility] ASSIGNMENT OF BENEFITS 2020-11-09 19:05:31 Docto r Unassigned, [place] [facility] CONSENT/REFUSAL FOR DIAGNOSIS AND TREATMENT 2020-11-09 19:04:50 Doctor Unassigned, [place] [facility] L&D VISIT (NON-DELIVERED) 2020-11-09 05:01:00 Doctor Unassigned, [place] [facility] US BIOPHYSICAL PROFILE 2020-11-07 00:40:58 Adum, Celena Grullon [facility] COVID-19 (ID NOW RAPID TESTING) 2020-11-06 22:36:00 Adum, Celena Grullon [facility] POCT URINALYSIS W/O SPECIFIC GRAVITY 2020-11-05 00:00:00 Micha Das [facility] NOTICE OF PRIVACY PRACTICES 2020-10-29 21:04:29 Doctor Unassigned, [place] [facility] CONSENT/REFUSAL FOR DIAGNOSIS AND TREATMENT 2020-10-29 21:04:15 Doctor Unassigned, [place] [facility] ASSIGNMENT OF BENEFITS 2020-10-29 21:04:01 Docto r Unassigned, [place] [facility] L&D VISIT (NON-DELIVERED) 2020-10-29 05:01:00 Doctor Unassigned, [place] [facility] ADC CLC OR LCC ONLY - WET PREP 2020-10-16 16:32:00 Micha Das [facility] CONSENT/REFUSAL FOR DIAGNOSIS AND TREATMENT 2020-10-16 15:26:58 Doctor Unassigned, [place] [facility] L&D VISIT (NON-DELIVERED) 2020-10-16 05:01:00 Doctor Unassigned, [place] [facility] SECOND AND THIRD TRIMESTER ULTRASOUND 2020-09-18 16:19:00 Ute Guzman [facility] GLUCOSE 1 HOUR POST PRANDIAL 2020-08-30 14:24:00 Micha Das [facility] CBC WITH DIFF 2020-08-30 14:24:00 Micha Das [facility] HIV 1/2 AG-AB WITH REFLEX 2020-08-30 14:24:00 Micha Das [facility] EXTERNAL PROVIDER RECORDS 2020-08-22 05:01:00 Doctor Deja, [place] [facility] AUTHORIZATION TO RELEASE PHI TO [facility] 2020-08-13 05:01:00 Doctor Unassigned, [place] [facility] GLUCOSE 1 HOUR POST PRANDIAL 2020-07-09 14:09:00 Henok Dasn [facility] ASSIGNMENT OF BENEFITS 2020-07-02 15:31:15 Docrayna r Unassigned, [place] [facility] EXTERNAL PROVIDER RECORDS 2020-06-14 05:01:00 Doctor Unassigned, [place] [facility] URINALYSIS 2020-05-31 15:42:00 Jatin Mcgowan [facility] CONSENT/REFUSAL FOR DIAGNOSIS AND TREATMENT 2020-05-31 15:06:14 Doctor Unassigned, [place] [facility] URINALYSIS 2020-05-23 17:57:00 Thiago Micha [facility] COVID-19 (ID NOW RAPID TESTING) 2020-05-23 17:44:00 Thiago Micha [facility] HCV ANTIBODY 2020-05-23 16:46:00 Thiago Micha [facility] ASSIGNMENT OF BENEFITS 2020-05-23 16:01:14 Catracho ball Unassigned, [place] [facility] LAB ONLY PAP SMEAR-LIQUID BASED 2020-04-25 20:00:00 Thiago Micha [facility] Encounters Start Date/Time End Date/Time Encounter Type Admission Type Attending Clinicians Care Facility Care Department Encounter ID Source 2021-01-27 15:33:51 Outpatient P [facility] [id number] [facility] 2021-01-27 15:33:23 Emergency [facility] [id number] [facility] 2021-01-27 14:56:48 Outpatient [facility] [id number] [facility] 2021-01-27 14:55:08 Outpatient [facility] [id number] [facility] 2021-01-27 09:45:48 Outpatient [facility] [id number] [facility] 2021-01-27 09:42:13 Outpatient [facility] [id number] [facility] 2021-01-27 09:41:51 Emergency [facility] [id number] [facility] 2021-01-26 03:27:35 Emergency [facility] [id number] [facility] 2021-01-26 01:31:25 Outpatient P [facility] [id number] [facility] 2021-01-26 01:20:07 Outpatient P [facility] [id number] [facility] 2024-09-26 09:15:00 2024-09-26 09:15:00 Outpatient JASON CHAUDHARI [facility] [id number] [facility] 2024-09-05 09:00:00 2024-09-05 09:00:00 Outpatient JASON [facility]AUDHARI [facility] [id number] [facility] 2024-09-05 00:00:00 2024-09-05 00:00:00 Tonie Jarvis APRN, MSN, [employer]: [address] [place] [address] , Ph[address] [facility] 0610 [facility] 2024-09-03 00:00:00 2024-09-03 00:00:00 Travel [id number] [facility] 2024-07-20 00:00:00 2024-07-20 00:00:00 Nafisa Nascimento APRN-[employer]-B C: [address] [place] [address] , Ph. [facility] 2024-07-14 09:00:00 2024-07-14 09:00:00 Outpatient JASON CHAUDHARI [facility] [id number] [facility] 2024-07-07 09:15:00 2024-07-07 09:15:00 Outpatient JASON CHAUDHARI [facility] [id number] [facility] 2024-06-06 07:30:00 2024-06-06 08:06:04 Outpatient JASON CHAUDHARI [facility] [id number] [facility] 2024-06-06 07:30:00 2024-06-06 08:06:04 Outpatient JASON CHAUDHARI [facility] [id number] [facility] 2024-04-24 00:00:00 2024-04-24 00:00:00 Tonie Jarvis APRN, MSN, [facility]-BC: [address] [place] [address], [address] [place] [phone] , Ph. [facility] 0127 [facility] 2024-03-17 07:30:00 2024-03-17 07:30:00 Outpatient JASON CHAUDHARI [facility] [id number] [facility] 2024-03-17 00:00:00 2024-03-17 00:00:00 Tonie Jarvis APRN, MSN, [facility]: [address] [place] [address], [address] [place] [phone] , Ph. [facility] 1220 [facility] 2024-02-22 07:30:00 2024-02-22 07:30:00 Outpatient JASON CHAUDHARI [facility] [id number] [facility] 2024-01-10 00:00:00 2024-02-12 18:22:51 Patient Secure Msg Doctor Unassigned, [place] Doctor Unassigned, [place] [facility] [id number] [facility] 2024-01-10 00:00:00 2024-01-10 00:00:00 Tonie Jarvis APRN, MSN, [facility]-: [address] [facility], [address], [place] [address] , [address] [facility] [address] 1014 [facility] 2023-12-06 09:00:00 2023-12-06 10:05:17 Outpatient R HANK ADAME [facility] [id number] [facility] 2023-12-06 09:00:00 2023-12-06 09:20:00 Urgent Care Hank Adame Unknown, Attending [facility] [id number] [id number] [facility] 2021-01-02 15:46:28 2021-01-02 16:31:58 Routine Visit Micha Das [facility] 1.0.114 [id number] [id number] [facility] 2021-01-02 16:00:00 2021-01-02 16:00:00 Outpatient R MICHA DAS [facility] [id number] [facility] 2021-01-02 00:00:00 2021-01-02 00:00:00 Orders Only Doctor Unassigned, [place] [facility] 1.840.114 350.1.13.10 [id number] [id number] [facility] 2020-12-24 16:00:00 2020-12-24 16:00:00 Outpatient MICHA ALEMAN [facility] [id number] [facility] 2020-12-24 00:00:00 2020-12-24 00:00:00 Telephone Micha Das [facility] [id number] [facility] 2020-11-26 03:43:00 2020-11-28 09:55:00 Hospital Encounter Micha Das [facility] [id number] [id number] [id number] [facility] 2020-11-26 20:00:00 2020-11-26 23:26:00 Anesthesia Event Marita Clark [facility] [id number] [id number] [id number] [id number] [facility] 2020-11-25 12:49:01 2020-11-25 13:04:01 Laboratory Only Only, Adc Test Thiago Micha [facility] [id number] [id number] [id number] [facility] 2020-11-25 13:00:00 2020-11-25 13:00:00 Outpatient R [facility] [id number] [facility] 2020-11-22 00:00:00 2020-11-22 00:00:00 Orders Only Doctor Unassigned, [place] [facility] [id number] [id number] [id number] [id number] [facility] 2020-11-19 16:19:20 2020-11-19 17:02:59 Routine Visit Carykeira Kimi [facility] 1.2.840.114 350.1.13.10 4.2.7.2.686 [id number] [facility] 2020-11-19 16:30:00 2020-11-19 16:30:00 Outpatient R KIMI FINCH [facility] [id number] [facility] 2020-11-18 15:15:00 2020-11-18 15:15:00 Outpatient R MICHA DAS [facility] [id number] [facility] 2020-11-13 15:00:00 2020-11-13 15:00:00 Outpatient P [facility] [id number] [facility] 2020-11-11 15:03:27 2020-11-11 16:13:19 Routine Visit Thiago Micha [facility] 1.0.114 350.1.13.10 4.2.7.2.686 [id number] [facility] 2020-11-11 15:15:00 2020-11-11 15:15:00 Outpatient R MICHA DAS [facility] [id number] [facility] 2020-11-09 14:27:00 2020-11-09 15:55:00 Hospital Encounter Catherine Knoxen Clemente [facility] 1.2840.114 350.1.13.10 4.2.7.2.686 [id number] 083 [id number] [facility] 2020-11-09 00:00:00 2020-11-09 00:00:00 Orders Only Doctor Unassigned, [place] [facility] 1.2840.114 350.1.13.10 4.2.7.2.686 [id number] [id number] [facility] 2020-11-08 00:00:00 2020-11-08 00:00:00 Telephone Thiago Micha [facility] 1.840.114 350.1.13.10 4.2.7.2.686 [id number] [facility] 2020-11-07 00:00:00 2020-11-07 00:00:00 Telephone AdCelena alexander [facility] Building 1.2.840.114 350.1.13.10 4.2.7.2.686 [id number] [facility] 2020-11-06 17:21:00 2020-11-06 23:49:00 Hospital Encounter AdCelena alexander [facility] 1.2.840.114 350.1.13.10 4.2.7.2.686 [id number] 083 [id number] [facility] 2020-11-06 00:00:00 2020-11-06 00:00:00 Nurse Triage [facility] 1.2.840.114 350.1.13.10 4.2.7.2.686 [id number] 019 [id number] [facility] 2020-11-05 10:13:58 2020-11-05 10:28:58 Driver Engineer Visit Pob, Adc Lab Main Micha Das [facility] 1.2.840.114 350.1.13.10 4.2.7.2.686 [id number] [facility] 2020-11-05 08:07:29 2020-11-05 09:01:42 Routine Visit ThiagoHenokn [facility] 1.2.840.114 350.1.13.10 4.2.7.2.686 [id number] [facility] 2020-11-05 08:15:00 2020-11-05 08:15:00 Outpatient R HENOK DASN [facility] [id number] [facility] 2020-10-29 15:58:00 2020-10-29 17:20:00 Hospital Encounter Micha Das Vivian [facility] 1.2.840.114 350.1.13.10 4.2.7.2.686 [id number] 083 [id number] [facility] 2020-10-29 00:00:00 2020-10-29 00:00:00 Nurse Triage Art Duffy [facility] 1.2840.114 350.1.13.10 4.2.7.2.686 [id number] [facility] 2020-10-29 00:00:00 2020-10-29 00:00:00 Orders Only Doctor Unassigned, [place] [facility] 1.840.114 350.1.13.10 4.2.7.2.686 [id number] [facility] 2020-10-21 13:00:00 2020-10-21 13:00:00 Outpatient R MICHA DAS [facility] [id number] [facility] 2020-10-16 10:35:00 2020-10-16 12:15:00 Hospital Encounter Celena Foley [facility] 1.0.114 350.1.13.10 4.2.7.2.686 [id number] [facility] 2020-10-16 10:45:00 2020-10-16 10:45:00 Outpatient P [facility] [id number] [facility] 2020-10-16 00:00:00 2020-10-16 00:00:00 Orders Only Doctor Unassigned, [place] [facility] 1.2840.114 350.1.13.10 4.2.7.2.686 [id number] [facility] 2020-10-11 00:00:00 2020-10-11 00:00:00 Micah Guillen [facility] Professio [facility] 1.840.114 350.1.13.10 4.2.7.2.686 [id number] [facility] 2020-10-07 08:00:00 2020-10-07 08:00:00 Outpatient MICHA ALEMAN [facility] [id number] [facility] 2020-09-24 08:15:00 2020-09-24 08:15:00 Outpatient MICHA ALEMAN [facility] [id number] [facility] 2020-09-18 10:35:35 2020-09-18 11:56:35 Driver Engineer Visit 2, [facility] Us Room Ute Guzman [facility] 1.114 350.1.13.10 4.2.7.2.686 [id number] [facility] 2020-09-18 10:45:00 2020-09-18 10:45:00 Outpatient P [facility] [id number] [facility] 2020-09-10 08:15:00 2020-09-10 08:15:00 Outpatient MICHA ALEMAN [facility] [id number] [facility] 2020-08-30 07:50:42 2020-08-30 08:05:42 Driver Engineer Visit Tutu, Mychal Lab Micha Staton [facility] 1.84.114 350.1.13.10 4.2.7.2.686 [id number] [facility] 2020-08-30 08:00:00 2020-08-30 08:00:00 Outpatient MICHA ALEMAN [facility] [id number] [facility] 2020-08-28 09:32:42 2020-08-28 11:39:27 Driver Engineer Visit 2, [facility] Us Room [place] [facility] 1..114 350.1.13.10 4.2.7.2.686 [id number] [facility] 2020-08-28 10:00:00 2020-08-28 10:00:00 Outpatient P [facility] [id number] [facility] 2020-08-27 11:15:00 2020-08-27 11:15:00 Outpatient MICHA ALEMAN [facility] [id number] [facility] 2020-08-22 00:00:00 2020-08-22 00:00:00 Orders Only Doctor Unassigned, [place] [facility] 1.0.114 350.1.13.10 4.2.7.2.686 [id number] [id number] [facility] 2020-08-13 08:15:00 2020-08-13 08:15:00 Outpatient MICHA ALEMAN [facility] [id number] [facility] 2020-08-13 00:00:00 2020-08-13 00:00:00 Orders Only Doctor Unassigned, [place] [facility] 1..114 350.1.13.10 4.2.7.2.686 [id number] [facility] 2020-07-30 10:45:00 2020-07-30 10:45:00 Outpatient MICHA ALEMAN [facility] [id number] [facility] 2020-07-17 14:21:51 2020-07-17 16:37:44 Driver Engineer Visit 2, [facility] Room Ute Guzman [facility] 1..114 350.1.13.10 4.2.7.2.686 [id number] [facility] 2020-07-17 14:21:51 2020-07-17 16:37:44 Driver Engineer Visit 2, [facility] 1..114 350.1.13.10 4.2.7.2.686 [id number] 2020-07-17 15:00:00 2020-07-17 15:00:00 Outpatient P [facility] [id number] [facility] 2020-07-17 00:00:00 2020-07-17 00:00:00 Letter (Out) Ute Guzman [facility] 1.0.114 350.1.13.10 4.2.7.2.686 [id number] [facility] 2020-07-17 00:00:00 2020-07-17 00:00:00 Letter (Out) Ute Guzman [facility] 1..114 350.1.13.10 4.2.7.2.686 [id number] 2020-07-16 08:00:00 2020-07-16 08:00:00 Outpatient R MICHA DAS [facility] [id number] [facility] 2020-07-15 09:27:01 2020-07-15 10:42:01 Driver Engineer Visit Ultrasound, [facility] Nicko Anderson [facility] DAIRY FROZEN MANAGER [facility] 1..114 350.1.13.10 4.2.7.2.686 [id number] [facility] 2020-07-15 09:27:01 2020-07-15 10:42:01 Driver Engineer Visit Ultrasound, [facility] DAIRY FROZEN MANAGER [facility] 1.840.114 350.1.13.10 4.2.7.2.686 [id number] 2020-07-15 09:30:00 2020-07-15 09:30:00 Outpatient P [facility] [id number] [facility] 2020-07-09 07:44:23 2020-07-09 07:59:23 Driver Engineer Visit Pob, Adc Lab Main Micha Das [facility] 1..114 350.1.13.10 4.2.7.2.686 [id number] [facility] 2020-07-09 07:44:23 2020-07-09 07:59:23 Driver Engineer Visit Po, [facility] Main [facility] 1.2840.114 350.1.13.10 4.2.7.2.686 [id number] 2020-07-09 07:45:00 2020-07-09 07:45:00 Outpatient MICHA ALEMAN [facility] [id number] [facility] 2020-07-02 10:36:39 2020-07-02 10:51:39 Driver Engineer Visit [facility], [facility] Main Micha Das [facility] 1.2840.114 350.1.13.10 4.2.7.2.686 [id number] [facility] 2020-07-02 10:36:39 2020-07-02 10:51:39 Driver Engineer Visit [facility] 1.2840.114 350.1.13.10 4.2.7.2.686 [id number] 2020-07-02 10:45:00 2020-07-02 10:45:00 Outpatient MICHA ALEMAN [facility] [id number] [facility] 2020-07-02 00:00:00 2020-07-02 00:00:00 Orders Only Doctor Unassigned, [place] [facility] 1.2.840.114 350.1.13.10 4.2.7.2.686 [id number] [id number] [facility] 2020-07-02 00:00:00 2020-07-02 00:00:00 Orders Only Doctor Unassigned, [place] [facility] 1.2.840.114 350.1.13.10 4.2.7.2.686 [id number] [id number] 2020-06-20 08:00:00 2020-06-20 08:00:00 Outpatient R MICHA DAS [facility] [id number] [facility] 2020-06-14 00:00:00 2020-06-14 00:00:00 Orders Only Doctor Unassigned, [place] [facility] 1.2.840.114 350.1.13.10 4.2.7.2.686 [id number] [id number] [facility] 2020-06-14 00:00:00 2020-06-14 00:00:00 Orders Only Doctor Unassigned, [place] [facility] 1.2.840.114 350.1.13.10 4.2.7.2.686 [id number] [id number] 2020-05-31 09:14:00 2020-05-31 10:39:00 Emergency Singer [facility] 1.2.840.114 350.1.13.10 4.2.7.2.686 [id number] [facility] 2020-05-31 09:14:00 2020-05-31 10:39:00 Emergency Singer [facility] 1.2.840.114 350.1.13.10 4.2.7.2.686 [id number] 2020-05-23 10:04:00 2020-05-23 18:15:00 Hospital Encounter Micha Das [facility] 1.2.840.114 350.1.13.10 4.2.7.2.686 [id number] [facility] 2020-05-23 10:04:00 2020-05-23 18:15:00 Hospital Encounter Micha Das [facility] 1.2.840.114 350.1.13.10 4.2.7.2.686 [id number] 2020-05-23 10:03:40 2020-05-23 10:18:40 Driver Engineer Visit Pob, Adc Lab Main Micha Das [facility] 1.2.840.114 350.1.13.10 4.2.7.2.686 [id number] [facility] 2020-05-23 10:03:40 2020-05-23 10:18:40 Driver Engineer Visit Pob, Adc Lab Main [facility] 1.2.840.114 350.1.13.10 4.2.7.2.686 [id number] 2020-05-23 08:00:00 2020-05-23 08:00:00 Outpatient R MICHA DAS [facility] [id number] [facility] 2020-05-23 00:00:00 2020-05-23 00:00:00 Orders Only Doctor Unassigned, [place] [facility] 1.2.840.114 350.1.13.10 4.2.7.2.686 [id number] [id number] [facility] 2020-05-15 00:00:00 2020-05-15 00:00:00 Patient Secure Msg Doctor Unassigned, [place] [facility] 1.2.840.114 350.1.13.10 4.2.7.2.686 [id number] [facility] 2020-05-15 00:00:00 2020-05-15 00:00:00 Telephone Micha Das [facility] 1.2.840.114 350.1.13.10 4.2.7.2.686 [id number] [facility] 2020-05-09 10:00:00 2020-05-09 10:00:00 Outpatient R HENOK DASN [facility] [id number] [facility] 2020-05-02 08:30:00 2020-05-02 08:30:00 Outpatient R HENOK DASN [facility] [id number] [facility] 2020-04-25 13:00:00 2020-04-25 13:00:00 Outpatient MICHA ALEMAN [facility] [id number] [facility] Results Test Description Test Time Test Comments Results Result Co mments Source [facility], [id number] 08:52:51 * Test Item Value Reference Range Interpretation Comme nts Strep (test code = Strep) negative [facility] SARS-COV-2 ANTIGEN (BINAX NOW)2023-12-06 14:59:00* Test Item Value Reference Range Interpretation Comme nts POCT SARS-COV-2 ANTIGEN (test code = 64812-0) Not Detected Not Detected, See Comment On board controls acceptable with C Line (test code = 3574) Yes Lab Interpretation (test code = 59411-1) Normal [facility] Molecular [id number] 14:56:02* Test Item Value Reference Range Interpretation Comme nts POCT Molecular FluA (test co de = 00524-9) Negative Negative POCT Molecular FluB (test co de = 47403-1) Negative Negative Lab Interpretation (test cod e = 88279-5) Normal [facility] MOLECULAR [id number] 14:50:38* Test Item Value Reference Range Interpretation Comme nts POCT Molecular Strep (test c ode = 80843-8) Negative Negative Lab Interpretation (test cod e = 19777-2) Normal [facility] [id number] 21:15:00* Test Item Value Reference Range Interpretation Comme nts POCT PREG (test code = 1605) Negative On board controls acceptable with C Line (test code = 3574) Yes POCT PREG LOT # (test code = 3575) POCT PREG TEST DATE ( test code = 3576) Lab Interpretation (test cod e = 55495-3) Normal [facility] with Edimdmjshywx6299-61-82 09:53:01* Test Item Value Reference Range Interpretation [...] 33.3 g/dL 31.6-35.1 RDW-SD (test code = 10901-8) 43.0 fL 39.0-49.9 RDW-CV (test code = 788-0) 13.9 % 12.0-15.5 PLT (test code = 777-3) See_Comment [Automated message] The system which generated this result transmitted reference range: 166 - 358 10*3/?L. The reference range was not used to interpret this result as normal/abnormal. MPV (test code = 17444-7) 10.4 fL 9.5-12.9 NRBC/100 WBC (test code = 5180467209) See_Comment [Automated message] The system which generated this result transmitted reference range: 0.0 - 10.0 /100 WBCs. The reference range was not used to interpret this result as normal/abnormal. NRBC x10^3 (test code = 8823301312) <0.01 See_Comment [Automated message] The system which generated this result transmitted reference range: 10*3/?L. The reference range was not used to interpret this result as normal/abnormal. GRAN MAT (NEUT) % (test code = 770-8) 85.0 % IMM GRAN % (test code = 7747975602) 0.50 % LYMPH % (test code = 736-9) 9.2 % MONO % (test code = 5905-5) 5.1 % EOS % (test code = 713-8) 0.0 % BASO % (test code = 706-2) 0.2 % GRAN MAT x10^3(ANC) (test code = 1357318681) 11.22 10*3/uL 1.88-7.09 H IMM GRAN x10^3 (test code = 3692220860) 0.07 10*3/uL 0.00-0.06 H LYMPH x10^3 (test code = 731-0) 1.21 10*3/uL 1.32-3.29 L MONO x10^3 (test code = 742-7) 0.67 10*3/uL 0.33-0.92 EOS x10^3 (test code = 711-2) <0.03 0.03-0.39 L BASO x10^3 (test code = 704-7) <0.03 0.01-0.07 Lab Interpretation (test code = 04985-6) Abnormal [facility] with Btoasqxrvywv7453-20-51 09:53:01* Test Item Value Reference Range Interpretation [...] 33.3 g/dL 31.6-35.1 RDW-SD (test code = 02749-6) 43.0 fL 39.0-49.9 RDW-CV (test code = 788-0) 13.9 % 12.0-15.5 PLT (test code = 777-3) See_Comment [Automated message] The system which generated this result transmitted reference range: 166 - 358 10*3/?L. The reference range was not used to interpret this result as normal/abnormal. MPV (test code = 50651-9) 10.4 fL 9.5-12.9 NRBC/100 WBC (test code = 5246858443) See_Comment [Automated message] The system which generated this result transmitted reference range: 0.0 - 10.0 /100 WBCs. The reference range was not used to interpret this result as normal/abnormal. NRBC x10^3 (test code = 9967433862) <0.01 See_Comment [Automated message] The system which generated this result transmitted reference range: 10*3/?L. The reference range was not used to interpret this result as normal/abnormal. GRAN MAT (NEUT) % (test code = 770-8) 85.0 % IMM GRAN % (test code = 8903916465) 0.50 % LYMPH % (test code = 736-9) 9.2 % MONO % (test code = 5905-5) 5.1 % EOS % (test code = 713-8) 0.0 % BASO % (test code = 706-2) 0.2 % GRAN MAT x10^3(ANC) (test code = 4483329336) 11.22 10*3/uL 1.88-7.09 H IMM GRAN x10^3 (test code = 7326008207) 0.07 10*3/uL 0.00-0.06 H LYMPH x10^3 (test code = 731-0) 1.21 10*3/uL 1.32-3.29 L MONO x10^3 (test code = 742-7) 0.67 10*3/uL 0.33-0.92 EOS x10^3 (test code = 711-2) <0.03 0.03-0.39 L BASO x10^3 (test code = 704-7) <0.03 0.01-0.07 Lab Interpretation (test code = 47545-1) Abnormal [facility] OR DEBBY ONLY - [id number] 08:23:58* Test Item Value Reference Range Interpretation Comme nts RPR (Qualitative) (test code = 21278-1) Nonreactive Nonreactive Lab Interpretation (test cod e = 32969-7) Normal [facility] OR DEBBY ONLY - [id number] 08:23:58* Test Item Value Reference Range Interpretation Comme nts RPR (Qualitative) (test code = 83695-4) Nonreactive Nonreactive Lab Interpretation (test cod e = 78559-2) Normal [facility] (D) IMMUNE [id number] 03:37:21* Test Item Value Reference Range Interpretation Comme nts RHIG CANDIDATE? (test code = 5055) No- see comment Patient is not a candidate for RhIg- Patient is Rh Positive.Performed at [facility] Laboratory [facility] Blood [address] [place] [address] Free: [phone] No. [id number] [facility] (D) IMMUNE [id number] 03:37:21* Test Item Value Reference Range Interpretation Comme nts RHIG CANDIDATE? (test code = 5055) No- see comment Patient is not a candidate for RhIg- Patient is Rh Positive.Performed at [facility] Blood [address] [place] [address] Free: [phone] No. [id number] [facility] [id number] 03:29:14* Test Item Value Reference Range Interpretation Comme nts VENOUS BASE EXCESS, CORD (test code = 6094213055) mEq/L VENOUS PH, CORD (test code = 4780165621) 7.25-7.45 VENOUS PC02, CORD (test code = 3010698574) See_Comment [Automated messa ge] The system which generated this result transmitted reference range: 27 - 49 mmHg. The reference range was not used to interpret this result as normal/abnormal. VENOUS PO2, CORD (test code = 6266072257) See_Comment [Automated me ssage] The system which generated this result transmitted reference range: 17 - 41 mmHg. The reference range was not used to interpret this result as normal/abnormal. VENOUS BICARBONATE, CORD (test code = 0267117413) See_Comment [Automated messa ge] The system which generated this result transmitted reference range: 12 - 29 mEq/L. The reference range was not used to interpret this result as normal/abnormal. [facility] [id number] 03:29:14* Test Item Value Reference Range Interpretation Comme nts VENOUS BASE EXCESS, CORD (test code = 2246012977) mEq/L VENOUS PH, CORD (test code = 7867847480) 7.25-7.45 VENOUS PC02, CORD (test code = 0290163314) See_Comment [Automated messa ge] The system which generated this result transmitted reference range: 27 - 49 mmHg. The reference range was not used to interpret this result as normal/abnormal. VENOUS PO2, CORD (test code = 9032154658) See_Comment [Automated me ssage] The system which generated this result transmitted reference range: 17 - 41 mmHg. The reference range was not used to interpret this result as normal/abnormal. VENOUS BICARBONATE, CORD (test code = 0559857443) See_Comment [Automated messa ge] The system which generated this result transmitted reference range: 12 - 29 mEq/L. The reference range was not used to interpret this result as normal/abnormal. [facility] [id number] 01:30:40 Marita Clark MD ? ? 11/26/2020 [...] L3-L4 ?Approach: midline ? ?Technique: MOI airEpidural/Spinal [place] and/or Catheter: ?Epidural/Spinal Kit: Sai Medisoft (BD) ?Needle Type: Tuohy ?Needle Gauge: 17G [...] Assessment: patient tolerated procedure well with no [facility] Neuraxial [id number] 01:30:40Marita Clark MD ? ? 11/26/2020 ?8:33 [...] L3-L4 ?Approach: midline ? ?Technique: MOI airEpidural/Spinal [place] and/or Catheter: ?Epidural/Spinal Kit: Sai Medisoft (BD) ?Needle Type: Tuohy ?Needle Gauge: 17G [...] Assessment: patient tolerated procedure well with no complicationsUnSurgery [facility] Surface Antigen 2020-11-26 15:24:40* Test Item Value Reference Range Interpretation Comme nts HBsAg Semi-Quantitative (nia t code = 5195-3) Negative Negative [facility] B Surface [id number] 15:24:40 * Test Item Value Reference Range Interpretation Comme nts HBsAg Semi-Quantitative (nia t code = 5195-3) Negative Negative [facility] - ONCE [id number] 11:54:25 * Test Item Value Reference Range Interpretation Comme nts ABO & RH (test code = 20) A Positive Performed at [facility] Blood [address] Free: [phone] No. [id number] IAT (test code = 1185) Negative Performed at [facility] Blood [place] [address]Toll Free: [phone] No. [id number] [facility] Center[facility] Screen - ONCE [id number] 11:54:25 * Test Item Value Reference Range Interpretation Comme nts ABO & RH (test code = 20) A Positive Performed at [facility] Blood [place] [address]Toll Free: [phone] No. [id number] IAT (test code = 1185) Negative Performed at [facility] Blood [place] [address]Toll Free: [phone] No. [id number] [facility] CenterHIV [facility]/2 AG-AB WITH [id number] 11:22:19* Test Item Value Reference Range Interpretation Comme nts HIV Semi-quantitative (test code = 41626-0) Negative Negative YOSHI (test code = YOSHI) Non-reactive for HIV-1 antigen and HIV-1/HIV-2 antibodies. ?No laboratory evidence of HIV infection. ?Repeat in 2-4 weeks if acute HIV infection is suspected. [facility] AG-AB WITH [id number] 11:22:19* Test Item Value Reference Range Interpretation Comme nts HIV Semi-quantitative (test code = 67974-7) Negative Negative YOSHI (test code = YOSHI) Non-reactive for HIV-1 antigen and HIV-1/HIV-2 antibodies. ?No laboratory evidence of HIV infection. ?Repeat in 2-4 weeks if acute HIV infection is suspected. [facility] Center[facility] with Mlxyldncqitx6533-90-73 09:55:09* Test Item Value Reference Range Interpretation Comme nts WBC (test code = 6690-2) See_Comment [Automated Gasp Solara ge] The system which generated this result transmitted reference range: 4.30 - 11.10 10*3/?L. The reference range was not used to interpret this result as normal/abnormal. RBC (test code = 789-8) See_Comment L [Automated Gasp Solara ge] The system which generated this result [...] 33.2 g/dL 31.6-35.1 RDW-SD (test code = 76409-0) 43.3 fL 39.0-49.9 RDW-CV (test code = 788-0) 14.0 % 12.0-15.5 PLT (test code = 777-3) See_Comment [Automated Gasp Solara ge] The system which generated this result transmitted reference range: 166 - 358 10*3/?L. The reference range was not used to interpret this result as normal/abnormal. MPV (test code = 90188-3) 10.5 fL 9.5-12.9 NRBC/100 WBC (test code = [id number]) See_Comment [Automated [employer] ssage] The system which generated this result transmitted reference range: 0.0 - 10.0 /100 WBCs. The reference range was not used to interpret this result as normal/abnormal. NRBC x10^3 (test code = [id number]) <0.01 See_Comment [Automated messa ge] The system which generated this result transmitted reference range: 10*3/?L. The reference range was not used to interpret this result as normal/abnormal. GRAN MAT (NEUT) % (test code = 770-8) 66.2 % IMM GRAN % (test code = [id number]) 0.80 % LYMPH % (test code = 736-9) 25.4 % MONO % (test code = 5905-5) 6.0 % EOS % (test code = 713-8) 1.3 % BASO % (test code = 706-2) 0.3 % GRAN MAT x10^3(ANC) (test code = 7092716660) 6.14 10*3/uL 1.88-7.09 IMM GRAN x10^3 (test code = 5048376920) 0.07 10*3/uL 0.00-0.06 H LYMPH x10^3 (test code = 731-0) 2.35 10*3/uL 1.32-3.29 MONO x10^3 (test code = 742-7) 0.56 10*3/uL 0.33-0.92 EOS x10^3 (test code = 711-2) 0.12 10*3/uL 0.03-0.39 BASO x10^3 (test code = 704-7) 0.03 10*3/uL 0.01-0.07 Lab Interpretation (test code = 35863-9) Abnormal [facility] with [id number] 09:55:09* Test Item Value Reference Range Interpretation [...] 33.2 g/dL 31.6-35.1 RDW-SD (test code = 72462-6) 43.3 fL 39.0-49.9 RDW-CV (test code = 788-0) 14.0 % 12.0-15.5 PLT (test code = 777-3) See_Comment [Automated messa ge] The system which generated this result transmitted reference range: 166 - 358 10*3/?L. The reference range was not used to interpret this result as normal/abnormal. MPV (test code = 47778-7) 10.5 fL 9.5-12.9 NRBC/100 WBC (test code = 8752359015) See_Comment [Automated [employer] ssage] The system which generated this result transmitted reference range: 0.0 - 10.0 /100 WBCs. The reference range was not used to interpret this result as normal/abnormal. NRBC x10^3 (test code = 6073711368) <0.01 See_Comment [Automated messa ge] The system which generated this result transmitted reference range: 10*3/?L. The reference range was not used to interpret this result as normal/abnormal. GRAN MAT (NEUT) % (test code = 770-8) 66.2 % IMM GRAN % (test code = 2821218655) 0.80 % LYMPH % (test code = 736-9) 25.4 % MONO % (test code = 5905-5) 6.0 % EOS % (test code = 713-8) 1.3 % BASO % (test code = 706-2) 0.3 % GRAN MAT x10^3(ANC) (test code = 4013108604) 6.14 10*3/uL 1.88-7.09 IMM GRAN x10^3 (test code = 4110075293) 0.07 10*3/uL 0.00-0.06 H LYMPH x10^3 (test code = 731-0) 2.35 10*3/uL 1.32-3.29 MONO x10^3 (test code = 742-7) 0.56 10*3/uL 0.33-0.92 EOS x10^3 (test code = 711-2) 0.12 10*3/uL 0.03-0.39 BASO x10^3 (test code = 704-7) 0.03 10*3/uL 0.01-0.07 Lab Interpretation (test code = 94195-8) Abnormal [facility] URINALYSIS W/O SPECIFIC [id number] 22:07:00* Test Item Value Reference Range Interpretation [...] = 3257) n/a Negative - Negati ve [facility] URINALYSIS W/O SPECIFIC [id number] 22:07:00* Test Item Value Reference Range Interpretation [...] = 3257) n/a Negative - Negati ve [facility]/O SPECIFIC [id number] 22:07:00* Test Item Value Reference Range Interpretation [...] = 3257) n/a Negative - Negati ve [facility] CenterFETAL NON-STRESS [id number] 22:04:06NST REACTIVE AND REASSURINGUnChildren[facility] Medical Center PlanoFETAL NON-STRESS TEST 2020-11-19 22:04:06NST REACTIVE AND REASSURINGUnChildren[facility] NON-STRESS [id number] 22:04:06NST REACTIVE AND REASSURINGUnChildren's Medical Center PlanoFETAL NON-STRESS [id number] 21:19:02Time 2826-2457. NST is reactive and reassuring. Baseline 135, moderate variability, +accelerations, no decelerations. [place] is irritable.[facility] URINALYSIS W/O SPECIFIC [id number] 20:20:00* Test Item Value Reference Range Interpretation [...] ve Lab Interpretation (test cod e = 18078-9) Normal [facility] Center[facility]. METABOLIC PANEL (51997)2020-11-09 20:32:39* Test Item Value Reference Range Interpretation Comme nts NA (test code = 4590007890) 135 mmol/L 135-145 K (test code = 4807402028) 3.7 mmol/L 3.5-5.0 CL (test code = 6397428772) 104 mmol/L 98-108 CO2 TOTAL (test code = 4328045725) 25 mmol/L 23-31 AGAP (test code = 9927538698) 2-16 BUN (test code = 1448491313) 4 mg/dL 7-23 L GLUCOSE (test code = 2369364255) 99 mg/dL 70-110 CREATININE (test code = 2142107745) 0.48 mg/dL 0.50-1.04 L TOTAL BILI (test code = 1841438806) 0.3 mg/dL 0.1-1.1 CALCIUM (test code = 4370468398) 9.2 mg/dL 8.6-10.6 T PROTEIN (test code = 2024003191) 7.0 g/dL 6.3-8.2 ALBUMIN (test code = 9008457115) 3.5 g/dL 3.5-5.0 ALK PHOS (test code = 2456366349) 87 U/L 34-122 ALTv (test code = 1742-6) 12 U/L 5-35 AST(SGOT) (test code = 3792343308) 16 U/L 13-40 eGFR (test code = 7619241544) mL/min/1.73m2 YOSHI (test code = YOSHI) Association [...] imaging tests). Lab Interpretation (test code = 37511-3) Abnormal [facility] CenterLIPASE2021-08-14 20:32:34* Test Item Value Reference Range Interpretation Comme nts LIPASE (test code = 6564237951) 31 U/L 0-220 Lab Interpretation (test cod e = 60397-9) Normal [facility] CenterAMYLASE2021-08-14 20:31:49* Test Item Value Reference Range Interpretation Comme nts JUN (test code = 6331823127) 48 U/L 35-110 Lab Interpretation (test cod e = 36157-1) Normal [facility] CenterURIN[facility]IS2021-08-14 20:31:14* Test Item Value Reference Range Interpretation Comme nts APPEARANCE (test code = 5671484011) Clear Clear COLOR (test code = 6434618937) Straw Yellow A PH (test code = 7170371717) 4.8-8.0 SP GRAVITY (test code = 4287284901) 1.003-1.030 L GLU U QUAL (test code = 3070531112) Normal Normal BLOOD (test code = 6684735054) Negative Negative KETONES (test code = 1860033309) Negative Negative PROTEIN (test code = 2887-8) Negative Negative UROBILIN (test code = 9082781787) Normal Normal BILIRUBIN (test code = 1776358693) Negative Negative NITRITE (test code = 7510255672) Negative Negative LEUK DENNY (test code = 5657590617) 25/uL Negative A RBC/HPF (test code = 8865060559) <1 See_Comment [Automated messa ge] The system which generated this result transmitted reference range: 0 - 3 HPF. The reference range was not used to interpret this result as normal/abnormal. WBC/HPF (test code = 7174156366) See_Comment [Automated messa ge] The system which generated this result transmitted reference range: 0 - 5 HPF. The reference range was not used to interpret this result as normal/abnormal. BACTERIA (test code = 0198856914) Negative Negative SQ EPITH (test code = 6225320176) HPF Lab Interpretation (test code = 08479-5) Abnormal [facility] WITH [id number] 20:21:10* Test Item Value Reference Range Interpretation [...] 33.1 g/dL 31.6-35.1 RDW-SD (test code = 22864-2) 43.0 fL 39.0-49.9 RDW-CV (test code = 788-0) 13.9 % 12.0-15.5 PLT (test code = 777-3) See_Comment [Automated messa ge] The system which generated this result transmitted reference range: 166 - 358 10*3/?L. The reference range was not used to interpret this result as normal/abnormal. MPV (test code = 70812-8) 10.2 fL 9.5-12.9 NRBC/100 WBC (test code = 0191075616) See_Comment [Automated [employer] ssage] The system which generated this result transmitted reference range: 0.0 - 10.0 /100 WBCs. The reference range was not used to interpret this result as normal/abnormal. NRBC x10^3 (test code = 7600006010) <0.01 See_Comment [Automated messa ge] The system which generated this result transmitted reference range: 10*3/?L. The reference range was not used to interpret this result as normal/abnormal. GRAN MAT (NEUT) % (test code = 770-8) 73.8 % IMM GRAN % (test code = 9537526066) 0.50 % LYMPH % (test code = 736-9) 18.1 % MONO % (test code = 5905-5) 6.0 % EOS % (test code = 713-8) 1.2 % BASO % (test code = 706-2) 0.4 % GRAN MAT x10^3(ANC) (test code = 6040291865) 6.18 10*3/uL 1.88-7.09 IMM GRAN x10^3 (test code = 5173041582) 0.04 10*3/uL 0.00-0.06 LYMPH x10^3 (test code = 731-0) 1.51 10*3/uL 1.32-3.29 MONO x10^3 (test code = 742-7) 0.50 10*3/uL 0.33-0.92 EOS x10^3 (test code = 711-2) 0.10 10*3/uL 0.03-0.39 BASO x10^3 (test code = 704-7) 0.03 10*3/uL 0.01-0.07 Lab Interpretation (test code = 64760-9) Abnormal [facility] BIOPHYSICAL [id number] 01:05:07BPP of 8/8. heart rate measures 127 bpm. RL: 111 EXAMINATION:US BIOPHYSICAL PROFILE ORDERING PHYSICIAN: CELENA FOLEY CLINICAL HISTORY: complains of no movement ; COMPARISON:None available TECHNIQUE:Limited sonographic images of the pelvis obtained for biophysical profile. FINDINGS: heart rate measures 127 bpm.Amniotic fluid index bklzxmde94.5 cm. Sketch Artist notes adequate breathing motion, movement andtone. BPP is 8/8. [facility], Radiant Results Inft User - 11/06/2020 8:06 PM CDT EXAMINATION:US BIOPHYSICAL PROFILEORDERING PHYSICIAN: CELENA FOLEYCLINICAL HISTORY: complains of no movement ;COMPARISON:None availableTECHNIQUE:Limited sonographic images of the pelvis obtained for biophysical profile.FINDINGS: heart rate measures 127 bpm. Amniotic fluid index dliuisqh73.5 cm. Sketch Artist notes adequate breathing motion, movement andtone. BPP is 8/8.IMPRESSIONBPP of 8/8. heart rate measures 127 bpm.RL: 111 [facility]anoCOVID-19 (ID NOW RAPID TESTING)2020-11-06 23:08:15* Test Item Value Reference Range Interpretation Comme nts SARS-CoV-2 Rapid ID NOW (test code = 20316-9) Not Detected Not Detected YOSHI (test code = YOSHI) ID NOW COVID-19 As say is an isothermal nucleic acid amplification test intended for the qualitative detection of nucleic acid from SARS-CoV-2 viral RNA in nasopharyngeal (DIRECTOR OF CLINICAL EDUCATION) specimens. It is used under Emergency Use [...] clinically indicated. Lab Interpretation (test code = 87993-9) Normal [facility] W/O SPECIFIC [id number] 13:41:00* Test Item Value Reference Range Interpretation [...] = 3257) n/a Negative - Negati ve [facility] CLC OR L[facility] ONLY - WET [id number] 16:58:15* Test Item Value Reference Range Interpretation Comme nts CLUE CELLS WET PREP (test co de = 6732809038) None Seen None Seen HPF BACTERIA WET PREP (test code = 8946443203) Few None Seen HPF A TRICHOMONAS WET PREP (test c ode = 1120029734) None Seen None Seen HPF YEAST WET PREP (test code = 1697470550) None Seen None Seen HPF Lab Interpretation (test cod e = 59563-9) Abnormal [facility] CenterHIV 1/2 AG-AB WITH [id number] 16:12:59* Test Item Value Reference Range Interpretation Comme nts HIV Semi-quantitative (test code = 28188-7) Negative Negative YOSHI (test code = YOSHI) Non-reactive for HIV-1 antigen and HIV-1/HIV-2 antibodies. ?No laboratory evidence of HIV infection. ?Repeat in 2-4 weeks if acute HIV infection is suspected. [facility] CenterGLUCOSE 1 HOUR POST [id number] 15:39:59* Test Item Value Reference Range Interpretation Comme nts GLUC 1 HR (test code = 5571728266) 90 mg/dL 120-170 L Lab Interpretation (test cod e = 27910-8) Abnormal [facility] CenterCBC WITH [id number] 14:32:07* Test Item Value Reference Range Interpretation [...] 32.9 g/dL 31.6-35.1 RDW-SD (test code = 23271-3) 40.9 fL 39.0-49.9 RDW-CV (test code = 788-0) 13.1 % 12.0-15.5 PLT (test code = 777-3) See_Comment [Automated messa ge] The system which generated this result transmitted reference range: 166 - 358 10*3/?L. The reference range was not used to interpret this result as normal/abnormal. MPV (test code = 52530-0) 9.9 fL 9.5-12.9 NRBC/100 WBC (test code = 5403249254) See_Comment [Automated [employer] ssage] The system which generated this result transmitted reference range: 0.0 - 10.0 /100 WBCs. The reference range was not used to interpret this result as normal/abnormal. NRBC x10^3 (test code = 4855880753) <0.01 See_Comment [Automated messa ge] The system which generated this result transmitted reference range: 10*3/?L. The reference range was not used to interpret this result as normal/abnormal. GRAN MAT (NEUT) % (test code = 770-8) 69.8 % IMM GRAN % (test code = 8650135327) 0.40 % LYMPH % (test code = 736-9) 22.6 % MONO % (test code = 5905-5) 5.6 % EOS % (test code = 713-8) 1.3 % BASO % (test code = 706-2) 0.3 % GRAN MAT x10^3(ANC) (test code = 4850099013) 6.34 10*3/uL 1.88-7.09 IMM GRAN x10^3 (test code = 6007568323) 0.04 10*3/uL 0.00-0.06 LYMPH x10^3 (test code = 731-0) 2.05 10*3/uL 1.32-3.29 MONO x10^3 (test code = 742-7) 0.51 10*3/uL 0.33-0.92 EOS x10^3 (test code = 711-2) 0.12 10*3/uL 0.03-0.39 BASO x10^3 (test code = 704-7) 0.03 10*3/uL 0.01-0.07 Lab Interpretation (test code = 79079-8) Abnormal [facility] CenterGLUCOSE 1 HOUR POST [id number] 15:10:55* Test Item Value Reference Range Interpretation Comme nts GLUC 1 HR (test code = 6323542378) 121 mg/dL 120-170 Lab Interpretation (test cod e = 68993-1) Normal [facility] CenterURINALYSIS2021-03-05 16:09:00* Test Item Value Reference Range Interpretation Comme nts APPEARANCE (test code = 2736820822) Hazy Clear A COLOR (test code = 4562303491) Yellow Yellow PH (test code = 3386187359) 4.8-8.0 SP GRAVITY (test code = 5815095808) 1.003-1.030 GLU U QUAL (test code = 2423373945) Normal Normal BLOOD (test code = 1682298955) Negative Negative KETONES (test code = 8320002709) Negative Negative PROTEIN (test code = 2887-8) Negative Negative UROBILIN (test code = 0804050843) Normal Normal BILIRUBIN (test code = 8517298648) Negative Negative NITRITE (test code = 0034041367) Negative Negative LEUK DENNY (test code = 5349931122) Negative Negative RBC/HPF (test code = 4686740397) <1 See_Comment [Automated messa ge] The system which generated this result transmitted reference range: 0 - 3 HPF. The reference range was not used to interpret this result as normal/abnormal. WBC/HPF (test code = 7583329282) See_Comment [Automated messa ge] The system which generated this result transmitted reference range: 0 - 5 HPF. The reference range was not used to interpret this result as normal/abnormal. BACTERIA (test code = 2885358328) Negative Negative MUCOUS (test code = 4341173600) Slight Negative LPF A AMORPHOUS (test code = 2254178829) Rare Rare HPF SQ EPITH (test code = 3422638705) HPF Lab Interpretation (test code = 40510-0) Abnormal [facility] CenterURIN[facility]YSIS2021-02-25 18:26:00* Test Item Value Reference Range Interpretation Comme nts APPEARANCE (test code = 6224720336) Cloudy Clear A COLOR (test code = 3546873800) Shonna Yellow A PH (test code = 6821116307) 4.8-8.0 SP GRAVITY (test code = 4951376714) 1.003-1.030 GLU U QUAL (test code = 8838203488) Normal Normal BLOOD (test code = 3567171058) Negative Negative KETONES (test code = 1022692008) 20 mg/dL Negative A PROTEIN (test code = 2887-8) 30 mg/dL Negative A UROBILIN (test code = 4291231774) Normal Normal BILIRUBIN (test code = 1363031182) Negative Negative NITRITE (test code = 7949677160) Negative Negative LEUK DENNY (test code = 8953059315) 250/uL Negative A RBC/HPF (test code = 9155914180) See_Comment H [Automated messa ge] The system which generated this result transmitted reference range: 0 - 3 HPF. The reference range was not used to interpret this result as normal/abnormal. WBC/HPF (test code = 3954558555) See_Comment H [Automated messa ge] The system which generated this result transmitted reference range: 0 - 5 HPF. The reference range was not used to interpret this result as normal/abnormal. BACTERIA (test code = 5106664960) Few Negative A MUCOUS (test code = 0383733747) Marked Negative LPF A SQ EPITH (test code = 2490549934) HPF YEAST BUD (test code = 6101470776) See_Comment [Automated messa ge] The system which generated this result transmitted reference range: <=1 HPF. The reference range was not used to interpret this result as normal/abnormal. Lab Interpretation (test code = 22058-5) Abnormal [facility] CenterCOVID[facility] (ID NOW RAPID TESTING)2020-05-23 18:10:00* Test Item Value Reference Range Interpretation Comme nts SARS-CoV-2 Rapid ID NOW (test code = 70998-8) Not Detected Not Detected YOSHI (test code = YOSHI) ID NOW COVID-19 As say is an isothermal nucleic acid amplification test intended for the qualitative detection of nucleic acid from SARS-CoV-2 viral RNA in nasopharyngeal (DIRECTOR OF CLINICAL EDUCATION) specimens. It is used under Emergency Use [...] clinically indicated. Lab Interpretation (test code = 67512-9) Normal [facility]"
[2024-12-13 14:41] LABS: Sqamous Epithelial None Seen /HPF (None Seen); Urine Culture Reflex Order NOT NEEDED; Urine Microscopic Reflex YN ORDER UMIC
--- NOTE | 2024-12-13 15:08 | RAD REPORT ---
Stone Protocol CLINICAL INDICATION: Female, 29 years old.FLANK PAIN TECHNIQUE: CT abdomen and pelvis was performed, without IV contrast, as per department protocol using a CT stone protocol. Axial, sagittal and coronal reconstructions were obtained. One or more of the following dose reduction techniques were used: Automated exposure control, adjustment of the mA and/o r kV according to the patient size, and/or iterative reconstruction. Unless otherwise specified, incidental findings do not require dedicated imaging follow-up. [id number]. IV CONTRAST: Not administered. COMPARISON: No prior exams FINDINGS: The lack of intravenous contrast limits the sensitivity of this exam for evaluation of solid visceral organs, vascular structures, and retroperitoneum. LOWER CHEST: No acute process identified.No significant pericardial effusion. UPPER GI: No significant abnormality. LIVER: Hepatic steatosis, but otherwise unremarkable. GALLBLADDER/BILE DUCTS: No biliary ductal dilatation.? PANCREAS: No mass, ductal dilation, or bethel-pancreatic fluid. SPLEEN: Unremarkable. ADRENALS: No adrenal masses. KIDNEYS AND URETERS: No hydronephrosis.No suspicious renal mass.No renal calculi.No ureteral calculi. ABDOMINAL AORTA AND OTHER VESSELS: Normal caliber aorta and IVC. PERITONEUM: No abnormal free fluid. No free air. LYMPH NODES: No pathologic lymphadenopathy. ABDOMINAL WALL: Small fat containing umbilical hernia. SMALL BOWEL/COLON: Small bowel has normal course and caliber. No colonic wall thickening or pericolon ic inflammatory changes.Normal appendix. Mild diverticulosis without diverticulitis. URINARY BLADDER: Underdistended but grossly unremarkable. REPRODUCTIVE ORGANS: No pathologic process. MUSCULOSKELETAL: Bilateral SI joint degenerative changes. ADDITIONAL FINDINGS: None. IMPRESSION: No acute findings within the abdomen or pelvis. No appendicitis.
[2024-12-13 15:11] LABS: Absolute Lymphocytes (CBC) 1.4 K/uL (0.7-4.9); Hematocrit 39.2 % (36.0-45.0); Hemoglobin 13.1 g/dL (12.0-15.0); MCH 29.0 pg (27.0-35.0); MCHC 33.5 g/dL (32.0-36.0); MCV 86.5 fL (80-100); MPV 7.8 fL (7.6-11.3); Nucleated RBC Absolute Count 0.0 (0-0); Nucleated Red Blood Cells % 0.0 % (0-0); RBC Red Blood Cell Count 4.54 M/uL (3.86-4.86); White Blood Count 8.20 thou/uL (4.3-10.9)
[2024-12-13 15:28] LABS: ALT/SGPT 22 U/L (13-56); Albumin 3.6 g/dL (3.4-5.0); Albumin/Globulin Ratio 0.9 (1.1-1.8); Alkaline Phosphatase 73 U/L (45-117); Anion Gap 7.6 mEq/L (5.0-15.0); BUN Blood Urea Nitrogen 12 mg/dL (7-18); Globulin 3.9 g/dL (2.3-3.5); Glucose Level 100 mg/dL (74-106); Lipase 17 U/L (13-75); Potassium 3.6 mEq/L (3.5-5.1)
[2024-12-13 15:29] LABS: AST/SGOT < 10 U/L (15-37)
--- NOTE | 2024-12-13 15:35 | EDPHYS ---
Physician Documentation [facility] Name: Samantha Blum Age: 29 yrs Sex: Female : 1995 Arrival Date: 12/13/2024 Time: 13:42 Bed 12 Private MD: ED Physician Luigi Ruff HPI: 12/13 15:38 This 29 yrs old Female presents to ER via Ambulatory with complaints of Back Pain - kb LOWER. 15:38 Patient is a 29-year-old female who presents for left flank pain that radiates to left kb abdomen that started 2 hours prior to arrival. Denies nausea, vomiting, diarrhea, urinary symptoms, fever. States she was patting her child's back for them to go to sleep and the pain started. Patient has never had pain like this before. Denies injury or trauma.. ACUTE CARE SURGEON: 16:02 LMP N/A - negative UPT, Not ap3 Historical: - Allergies: 14:06 Zithromax; hb - PMHx: 14:06 HYPOGLYCEMIA; hb - Immunization history:: Adult Immunizations unknown. - Infectious Disease History:: Denies. - Social history:: Smoking status: unknown. ROS: 15:39 Constitutional: As per HPI kb Exam: 15:39 Constitutional: This is a well developed, well nourished patient who is awake, alert, kb and in no acute distress. Head/Face: Normocephalic, atraumatic. ENT: Moist Mucous membranes Cardiovascular: Regular rate Respiratory: Respirations even and unlabored. No increased work of breathing. Talking in full sentences Skin: Warm, dry with normal turgor. Normal color. MS/ Extremity: Pulses equal, no cyanosis. Neurovascular intact. Full, normal range of motion. Neuro: Awake and alert, GCS 15, oriented to person, place, time, and situation. 15:39 Abdomen/GI: Inspection: abdomen appears normal, Bowel sounds: normal, Palpation: soft, in all quadrants, mild abdominal tenderness, in the left upper quadrant and left lower quadrant, 15:39 Back: CVA tenderness, that is mild, is noted on the left, Vital Signs: 14:05 BP 143 / 91; Pulse 74; Resp 18; Temp 99; Pulse Ox 98% on R/A; Weight 107.95 kg; Height hb 4 ft. 11 in. ; Pain 9/10; 14:22 BP 126 / 64; Pulse 71; Resp 18; Pulse Ox 100% on R/A; ap3 14:05 Body Mass Index 48.07 (107.95 kg, 149.86 cm) hb 14:05 Pain Scale: Adult hb MDM: 14:11 Medical Screening Exam initiated kb 15:39 Differential diagnosis: nephrolithiasis, pyelonephritis, UTI, Strain, diverticulitis. kb Data reviewed: vital signs, nurses notes. I considered the following discharge prescriptions or medication management in the emergency department I discussed and recommended Over The Counter medications, Antibiotics: At this time antibiotics are not recommended. Counseling: I had a detailed discussion with the patient and/or guardian regarding the historical points, exam findings, and any diagnostic results supporting the discharge/admit diagnosis, lab results, radiology results, the need for outpatient follow up, a family practitioner, to return to the emergency department if symptoms worsen or persist or if there are any questions or concerns that arise at home. 12/13 14:12 Order name: UA Rfx Tyrone Cult if indicated; Complete Time: 15:07 kb 12/13 14:12 Order name: Test, Urine; Complete Time: 15:07 kb 12/13 14:33 Order name: CBC with Diff; Complete Time: 15:18 kb 12/13 14:33 Order name: CMP; Complete Time: 15:30 kb 12/13 14:33 Order name: Lipase; Complete Time: 15:30 kb 12/13 14:33 Order name: CT Stone Protocol; Complete Time: 15:09 kb 12/13 14:33 Order name: IV Saline Lock; Complete Time: 15:06 kb 12/13 14:33 Order name: Labs collected and sent; Complete Time: 15:06 kb Administered Medications: No medications were administered Disposition Summary: 12/13/24 15:34 Discharge Ordered Notes: Location: Home kb Condition: Stable kb Diagnosis - Left flank pain kb Followup: kb - With: Emergency Department - When: As needed - Reason: Worsening of condition Followup: kb - With: Private Physician - When: 2 - 3 days - Reason: Recheck today's complaints, Continuance of care, Re-evaluation by your physician Discharge Instructions: - Discharge Summary Sheet kb - Flank Pain, Adult, Zmee-yi-Melh kb Forms: - Medication Reconciliation Form kb - Antibiotic Education kb - Prescription Opioid Use kb - Patient Portal Instructions kb - Leadership Thank You Letter kb - Work release form ap3 Prescriptions: - Ibuprofen 800 mg Oral Tablet - take 1 tablet ORAL route every 8 hours As needed take with food; 30 tablet; kb Refills: 0, Product Selection Permitted - orphenadrine citrate 100 mg Oral Tablet Sustained Release - take 1 tablet ORAL route 2 times per day As needed; 20 tablet; Refills: 0, kb Product Selection Permitted Signatures: Dispatcher [employer] Veronica Garland, Blanquita De La Rosa, RN RN Malissa Merrill RN RN ap3
--- NOTE | 2024-12-13 15:35 | ER ---
Nurse's Notes [facility] Name: Saamntha Blum Age: 29 yrs Sex: Female : 1995 Arrival Date: 12/13/2024 Time: 13:42 Bed 12 Private MD: Diagnosis: Left flank pain Presentation: 12/13 14:05 Chief complaint: Severe left flank pain that started 2 hours ago. Coronavirus screen: hb At this time, the client does not indicate any symptoms associated with coronavirus-19. Ebola Screen: No symptoms or risks identified at this time. Initial Sepsis Screen: Does the patient meet any 2 criteria? No. Patient's initial sepsis screen is negative. Does the patient have a suspected source of infection? No. Patient's initial sepsis screen is negative. Risk Assessment: Do you want to hurt yourself or someone else? Patient reports no desire to harm self or others. Onset of symptoms was December 13, 2024. 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 - Infectious Disease History:: Denies. - Social history:: Smoking status: unknown. Screenin:22 [facility] ED Fall Risk Assessment (Adult) History of falling in the last 3 months, ap3 including since admission No falls in past 3 months (0 pts) Confusion or Disorientation No (0 pts) Intoxicated or Sedated No (0 pts) Impaired Gait No (0 pts) Mobility Assist Device Used No (0 pt) Altered Elimination No (0 pt) Score/Fall Risk Level 0 - 2 = Low Risk Oriented to surroundings, Maintained a safe environment, Educated pt \T\ family on fall prevention, incl call for assistance when getting out of bed, Assessed \T\ reinforced patient's understanding of fall precautions, Hourly rounding (assess needs \T\ fall precautionary measures) done, Used ambulatory aids as needed (educated on \T\ assisted with). Abuse screen: Denies threats or abuse. Nutritional screening: No deficits noted. Tuberculosis screening: No symptoms or risk factors identified. Assessment: 14:22 General: Appears in no apparent distress. Behavior is calm, cooperative, appropriate ap3 for age. Pain: Complains of pain in low back area. Neuro: Level of Consciousness is awake, alert, obeys commands, Oriented to person, place, time, situation. Cardiovascular: Patient's skin is warm and dry. Respiratory: Airway is patent Respiratory effort is even, unlabored, Respiratory pattern is regular, symmetrical. : Reports pain in left flank(s). Vital Signs: 14:05 BP 143 / 91; Pulse 74; Resp 18; Temp 99; Pulse Ox 98% on R/A; Weight 107.95 kg; Height hb 4 ft. 11 in. ; Pain 9/10; 14:22 BP 126 / 64; Pulse 71; Resp 18; Pulse Ox 100% on R/A; ap3 14:05 Body Mass Index 48.07 (107.95 kg, 149.86 cm) hb 14:05 Pain Scale: Adult hb ED Course: 13:45 Patient arrived in ED. cj3 14:06 Triage completed. hb 14:11 [facility] Wagner [facility]C [facility] kb 14:11 Luigi Ruff MD is Attending Physician. kb 14:20 Malissa Merrill, AMARA is Primary Nurse. ap3 14:23 Arm band placed on right wrist. ap3 14:23 Patient has correct armband on for positive identification. Call light in reach. ap3 Provided Education on: correct urine collection. Pulse ox on. NIBP on. 14:28 No provider procedures requiring assistance completed. ap3 14:40 Radiology exam delayed due to lab results not completed at this time. (HCG) jc4 test not completed at this time. 14:56 CT Stone Protocol In Process Unspecified. EDMS 15:06 Initial lab(s) drawn, by az, sent to lab. Inserted saline lock: 22 gauge in right ap3 antecubital area, using aseptic technique. Blood collected. Flushed with 10 mL NS. 16:02 IV discontinued, intact, bleeding controlled, No redness/swelling at site. Pressure ap3 dressing applied. Administered Medications: No medications were administered Medication: 16:02 VIS not applicable for this client. ap3 Outcome: 15:34 Discharge ordered by . kb 16:02 Discharged to home ambulatory, with family, ap3 16:02 Condition: good 16:02 Discharge instructions given to patient, family, Instructed on discharge instructions, follow up and referral plans. medication usage, Demonstrated understanding of instructions, follow-up care, medications, Prescriptions given X 2, 16:03 Patient left the ED. ap3 Signatures: Dispatcher [employer] EDMS Veronica Wagner, BRANT-C BRANT-Blanquita Puckett RN RN hb Prokisch, Amanda, RN RN ap3 Celio Law Celeste 3
[2024-12-13 16:26] VITALS: TEMP 99
[2024-12-13 16:27] VITALS: BP 126/64; O2SAT 100
== END 2024-12-13 16:03 | disposition home or self-care (01) ==
LOC: ER 13:42
DX: R10.32 Left lower quadrant pain (principal)
CPT/HCPCS: 36415; 74176; 76377; 80053; 81001; 81025; 83690; 85025; 99284